=== PATIENT | female | born 1960 | race Caucasian/White ===

== ENCOUNTER → 2017-10-07 10:12 | Outpatient (CLI) | payer OTHER, SELFPAY ==
--- NOTE | 2017-10-07 10:18 | MRI_ITS ---
STUDY: MRI LEFT SHOULDER REASON FOR EXAM: Painful and decreased range of motion, jerking/pulling injury last May. TECHNIQUE: Standardized fat and water weighted pulse sequences were obtained in all 3 orthogonal planes. COMPARISON: Radiographs 05/02/2017. FINDINGS: There is mild supraspinatus and infraspinatus tendinosis (T2 coronal series 7 images 8-13) without discrete tendon tear. Normal subscapularis tendon. Normal teres minor tendon. Normal supraspinatus muscle. Normal infraspinatus muscle. Normal subscapularis muscle. Normal teres minor muscle. Normal glenohumeral articulation. There is mild cystic change of the greater tuberosity. Normal biceps labral complex. Normal intracapsular long biceps tendon. Normal labrum. Normal capsulo- ligamentous complex. Normal acromioclavicular articulation. There is a Type I morphology (flat undersurface), with a mild posterior downsloping orientation. There is no subacromial-subdeltoid bursal fluid. There is thickening of the coracohumeral ligament (T2 sagittal images 12, 13). Normal deltoid muscle. Normal trapezius muscle. MRI/Upper Ext Joint Only(Routine) IMPRESSION: Mild supraspinatus and infraspinatus tendinosis without demonstrated rotator cuff tear. Thickening of the coracoacromial ligament, suggestive of adhesive capsulitis. Electronically Signed: Gianfranco Koch MD at 11:32 EST Tel , Service support ,
== END ==
PROVIDERS: Family Provider Family Medicine; PCP Family Medicine; Visit Provider Orthopaedic Surgery
DX: M75.02 Adhesive capsulitis of left shoulder (principal)
CPT/HCPCS: 73221

== ENCOUNTER 2017-11-11 05:43 | Day surgery (SDC) | payer OTHER, SELFPAY ==
[2017-11-11] VITALS (7 sets, daily range): BP systolic 124–154; BP diastolic 68–85; PULSE 71–82; RESP 16; TEMP 35.8–36; O2SAT 14–100; BMI 20.9
[2017-11-11] MEDS: oxyCODONE HCl Cr 10 MG Tablet PO (06:20)
[2017-11-11] MEDS: Celecoxib 200 MG Capsule PO (06:20)
--- NOTE | 2017-11-11 06:56 | PCM.DC.ORTHO ---
Discharge Activity: Return to Normal Activity, May not drive while taking narcotic pain medications., May Shower, - - sling for comfort May shower in (days): 2 May resume sexual activity in: No Restrictions Ice area for (Minutes): 20 Weight Bearing Status: Weight bearing as tolerated Call your doctor if your incision/area has: Continuous Slow Oozing, Sudden Increased Bleeding, Increased Pain/ Swelling, Increased Redness, Foul Smelling Discharge, Swelling at the incision site Call your doctor if you observe: Fever of 101 or Higher, Coldness, Increased Pain, Numbness or Tingling, Change in Color, Inability to urinate, Inability to have a bowel movement, Using more than one pad per hour, Shortness of breath, Dizziness, Fainting spells, Swelling in the ankles, Chest pain, Prolonged hiccoughing, Increased palpitations (irregular heartbeat), Calf discomfort, Uncontrolled pain Suture Line Care: Avoid Pulling/Pushing, Avoid Pinching/Bending Change Dressing in (Days):: 2 Remove Dressing in (days):: 2 Cleanse incision/area with: Soap & Water Additional Dressing/Incision Instructions:: replace if there is drainage. wash hands prior to touching the wounds Allergies/Adverse Reactions: Allergies Sulfa (Sulfonamide Antibiotics) Allergy (Verified 11/05/17 09:22) Other morphine Adverse Reaction (Verified 11/11/17 06:10) Itching Medications to take at Discharge Lansoprazole [Prevacid] 15 mg PO DAILY 06/09/13 Zolmitriptan [Zomig] 1.25 mg PO PRN PRN 06/10/13 Naproxen [Naprosyn] 500 mg PO BID #20 tab 08/29/14 Fluoxetine [Prozac] 20 mg PO DAILY 11/05/17 Docusate Sodium [Colace] 100 mg PO BID PRN PRN #10 cap 11/11/17 Hydrocodone Bitart/Apap 5-325 [[place] 5/325] 1 - 2 tablet PO Q6H PRN PRN #60 tablet 11/11/17 MethylPREDNISolone DosePak [Medrol DosePak] 4 mg PO UD #1 box 11/11/17 proMETHazine tablet [Phenergan] 25 mg PO Q4H PRN PRN #10 tab 11/11/17 The following prescriptions were given: proMETHazine tablet [Phenergan] 25 mg PO Q4H PRN PRN #10 tab PRN Reason: Nausea Hydrocodone Bitart/Apap 5-325 [[place] 5/325] 1 - 2 tablet PO Q6H PRN PRN #60 tablet PRN Reason: Pain Docusate Sodium [Colace] 100 mg PO BID PRN PRN #10 cap PRN Reason: Constipation MethylPREDNISolone DosePak [Medrol DosePak] 4 mg PO UD #1 box Primary Care Physician: Grzegorz Montgomery MD [Primary Care Provider] - Please Follow Up With: Nadeem Pang DO When: call [facility] for appt for 2 weeks Proposed Discharge Date: 11/11/17
[2017-11-11] MEDS: Cefazolin 2 GM in 0.9% Normal Saline 100 ML IV (07:15)
--- NOTE | 2017-11-11 07:15 | PCM.IMDPSTOP ---
Immediate Post-Op Note Date of Procedure: 11/11/17 Primary Surgeon/Physician: Nadeem Pang DO tobacco acreage measurer: none Pre-Operative Diagnosis: Left shoulder adhesive capsulitis Post-Operative Diagnosis: Same as above Surgery/Procedure Performed:: Left shoulder manipulation under anesthesia and arthroscopic lysis of adhesions Description of Surgical Findings:: See dictation Estimated Blood Loss: 10 Specimen's removed: None Type of Anesthesia:: General/Regional ASA Class: ASA1 Normal Healthy Patient - Admit VTE Documentation VTE Present on Admission: No VTE Mechan Device Prophylaxis: SCD's, Knee High ANTHONY Hose VTE Pharm Prophylaxis ordered?: No Reason prophylaxis not ordered:: Treatment Not Indicated
--- NOTE | 2017-11-11 07:16 | OP.PCM_ITS ---
Report of Operation Date of Procedure: 11/11/17 Pre-Operative Diagnosis: Left shoulder adhesive capsulitis Post-Operative Diagnosis: Same as above Surgery/Procedure Performed:: Left shoulder manipulation under anesthesia and arthroscopic lysis of adhesions Description of Surgical Findings:: 57-year-old female with recalcitrant left shoulder pain that failed operative management to include NSAIDs activity modifications physical therapy and injections. Patient showed signs of adhesive capsulitis. She had an MRI that showed no rotator cuff pathology but a thickened capsule consistent with adhesive capsulitis at. Having failed conservative measures patient elected for operative intervention. Patient was counseled and consented for the aforementioned procedure. She was met in the holding area with a left upper extremity was marked and identified by the with surgeon. Patient was taken to the operating room in satisfactory condition with somewhat to place to identify patient operative procedure and limb. Patient received 2 g Ancef. She underwent a successful intubation. She was then placed in the beachchair position with all bony and soft tissue prominences protected. She was then wrapped and draped in usual fashion. Initial manipulation or anesthesia was undertaken. The patient was actively for elevated with release of soft tissue adhesions to about 170? of forward elevation. At that point time the shoulder was then extended to roughly 45?. We then performed simple abduction of the shoulder to roughly 75? of abduction. We performed gentle external rotation at the side where there was still some tightness at about 30? of range of motion. I elected that point in time not to further stress the shoulder and to begin the arthroscopic procedure. Her left upper extremity was then placed into the [place] O arm padilla. Posterior portal was established and we entered an intra-articular space. Upon identification of the anatomic triangle and anterior inferior working portal was established diagnostic scope should the patient have a normal biceps upon outlet with good mobilization. She had no scarring across across the superior recess. Her anterior central and posterior cuff showed no signs of any significant pathology. She had some small capsular fraying but no actual cornelia tearing. The posterior inferior capsule was normal and there was no loose bodies in the axillary pouch. Posterior inferior posterior superior labrum's were normal. She had no chondromalacia to the humeral head or glenoid. The patient was obviously tight anterior and anterior inferiorly. At that point time a standard capsulotomy and release of the rotator interval was undertaken to include the SG EHL and the coracohumeral ligament. I worked my way to the base of the coracoid using standard technique. Intra-articularly I then worked my way medially at with caution not to go too far to engage the neurovascular structures the subscapularis. We then release the [facility] L as she had some component to that and then staying underneath the capsular tissue down to roughly the 8 o'clock position I used a vapor cautery to perform our capsule release until I could identify subscapularis fibers. At that point time I used a box closing machine operator to release the inferior portion of the inferior glenohumeral ligament using standard technique down to roughly the 630 position. At that point time we had an improved drive-through sign. I then reperformed the external rotation and abduction external rotation components of the manipulation or anesthesia improving the overall range of motion. The scope was then retracted moved in the subacromial space established a lateral portal and performed a standard arthroscopic subacromial bursectomy. The CA ligament was intact he did not feel that there was an impingement lesion. The patient had moderate to severe for severe bursitis. This was released all the way to the scapular spine and the moving anterior lateral and posterior laterally across the gutter. No rotator cuff pathology could be appreciated. The scope was then retracted portal sites closed with 3-0 nylon. The patient will undergo a postoperative interscalene block. Final range of motion were noted to be 170? of forward elevation. Abduction external rotation to 90 and 85 internal rotation in the abducted position was roughly 45. External rotation at the side was roughly 75?. The patient could extend to roughly 70?. No drains or complications no implants. Patient will start active range of motion and physical therapy tomorrow. I was scrubbed and available all time during our procedure. If you require any further information please and is contacted. structural engineering technician: none Type of Anesthesia:: General/Regional Specimen's removed: None Estimated Blood Loss (mL): 10 Grafts/Implants Used: None - Complications none - Admit VTE Documentation VTE Present on Admission: No VTE Mechan Device Prophylaxis: SCD's, Knee High ANTHONY Hose VTE Pharm Prophylaxis ordered?: No Reason prophylaxis not ordered:: Treatment Not Indicated
== END 2017-11-11 09:56 | disposition home or self-care (01) ==
LOC: SDC 05:44 → AC 05:45
PROVIDERS: Family Provider Family Medicine; PCP Family Medicine; Visit Provider Orthopaedic Surgery
PROC: (CPT 29805; principal; 2017-11-11 06:55)
DX: M75.02 Adhesive capsulitis of left shoulder (principal); M25.512 Pain in left shoulder; G89.29 Other chronic pain; J44.9 Chronic obstructive pulmonary disease, unspecified; K21.9 Gastro-esophageal reflux disease without esophagitis; F32.9 Major depressive disorder, single episode, unspecified; F41.9 Anxiety disorder, unspecified; Z79.1 Long term (current) use of non-steroidal anti-inflammatories (NSAID); Z79.899 Other long term (current) drug therapy; Z87.891 Personal history of nicotine dependence; Z87.442 Personal history of urinary calculi; Z87.440 Personal history of urinary (tract) infections; Z87.01 Personal history of pneumonia (recurrent); Z85.828 Personal history of other malignant neoplasm of skin
CPT/HCPCS: 29825; J7120; J2405

== ENCOUNTER 2017-12-08 15:30 | Outpatient (RCR) | payer OTHER, SELFPAY ==
--- NOTE | 2017-11-14 10:00 | HP.PTEVAL_ITS ---
Patient's Visit Information ROXY KHANNA is a 57 year old F referred to Physical Therapy by Nadeem Pang DO with a diagnosis of L shoulder RONNIE, adhesive capsulitis. Date of Evaluation: 11/12/17 Physical Therapist: Abdoulaye Logan - Visit Plan Frequency: 2x /Week Duration: 4-6 Weeks Plan: Start with PROM, joint mobs. Progress HEP to family to increase consistency. Progress to AAROM/AROM as tolerated. - Subjective Subjective: Pt is here today for her initial evaluation with adhesive capsulities and surgerical bursectomy. Pt. has an RONNIE yesterday, DOS 11/12/17. Pt. reports having increased symptoms since ~ Nov. after dog pulled her by its lease. Pt. had an MRI showing no RTC issues. Pt. did have bursectomy. Pt. is here to progress her ROM. Pt. elisabethl has her bandages on, able to remove tomorrow. Pt's daughter was here today as well. Pt. denies N/T in either UE. Pt. reprots increased pain with all movements overhead. 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 Pt. is hopeful to gain full motions and get back to all recreational and work activities withtout isues. - Pain L shoulder Pain Intensity (Out of 10): 5 Pain Intensity Range: 3, 8 - Objective POSTURE: PT. has L arm in guarded positioning. Pt. has increased L shoulder height. No sling. PALPATION: Pt. has increased tenderness throughout L shoulder. Marked edema. Unable to check incisions due to bandaging, able to remove tomorrow. NEUROLOGICAL: Pt. has normal sensation to light and sharp touch throughout. Pt. has 2+ biceps and triceps DTR bilaterally. ROM: PROM- L shoulder- flexion 98deg, abd 89deg, ER at 45deg 35deg, IR at 45deg 40deg. Pt. has limited ROM- flexion 40deg, and 45deg, ext 40deg, ER at side 30deg, unable to complete functional IR. MMT- RUE 5/5 throughout; did not test LUE currently this date. - Goals Goal 1:: Pt. to be I with HEP. Goal Time Frame: 4-6 Weeks Goal 2:: Pt. to have increased L shoulder PROM to full, symmetical to R side allowing for increased tolerance to ADLs and functional mobility. Goal Time Frame: 4-6 Weeks Goal 3:: Pt. to have no pain with all ADLs and sleeping allwoing for increased quality of life. Goal Time Frame: 4-6 Weeks Goal 4:: Pt. to have full AROM of L shoulder without increase in symptoms. Goal Time Frame: 4-6 Weeks Goal 5:: Pt. to resume all work related activities without increase in symptoms. Goal Time Frame: 4-6 Weeks - Rehabilitation Potential Physical Therapy Diagnosis: Pt. has sign and symptoms consistent with L shoulder RONNIE and adhesive capsulitis. Pt. has hypombility noted throughout L shoulder. Pt. reports pain with stretching. Pt. would benefit from PT to increase PROM, progressing to AROM as able. Rehabilitation Potential: Excellent - Anticipated Interventions Patient/Client Instruction: Educate patient on: Condition, Plan of Care, Risk Factors, Benefits of Fitness Program For the Purpose of:: To foster healthy habits, To improve decision making, To facilitate caregiver knowledge, To improve self management, To prevent re-injury , To improve ability to perform tasks related to life management, To improve tolerance to ADL's Therapeutic Exercise to Include: Strength training, Postural training, Flexibilty training, Passive ROM, Active ROM, Scapular Strength/Stabilization For the Purpose of:: To decrease pain, To increase ROM, To improve nutrient delivery to tissue, To increase oxygenation perfusion, To improve muscle performance and motor function, To improve ability to perform ADL's, To improve gait and locomotor functions, To improve health of tissue, To decrease soft tissue restriction, To increase flexibility/ROM Manual Therapy Techniques to Include: Mobilization, Passive ROM, Soft tissue mobilization For the Purpose of:: To decrease pain, To increase ROM, To improve nutrient delivery to tissue, To increase oxygenation perfusion, To improve muscle performance and motor function IF ES: Yes Cryotherapy (ice pack, ice massage): Yes Thermo therapy (hot pack): Yes For the Purpose of:: To decrease pain, To decrease swelling/inflammation, To increase ROM, To improve nutrient delivery to tissue Thank you for the opportunity to evaluate your patient. For Medicare and Medicare HMO plans, please review the plan of care and approve it. It will need to be FAXED BACK to us at [phone] for Medicare purposes. Please let me know if there are questions or concerns regarding this plan of care. Physician Signature: Date:
--- NOTE | 2018-05-14 10:53 | HP.PTDCNRP_ITS ---
HP - Discharge Summary (1) - Patient Information ROXY KHANNA was seen in my office for initial evaluation on 11/12/17. The following Plan of Care was established for this patient: Initial Frequency: 2x /Week Initial Duration: 4-6 Weeks - Anticipated Interventions Patient/Client Instruction: Educate patient on: Condition, Plan of Care, Risk Factors, Benefits of Fitness Program For the Purpose of:: To foster healthy habits, To improve decision making, To facilitate caregiver knowledge, To improve self management, To prevent re- injury, To improve ability to perform tasks related to life management, To improve tolerance to ADL's Therapeutic Exercise to Include: Strength training, Postural training, Flexibilty training, Passive ROM, Active ROM, Scapular Strength/Stabilization For the Purpose of:: To decrease pain, To increase ROM, To improve nutrient delivery to tissue, To increase oxygenation perfusion, To improve muscle performance and motor function, To improve ability to perform ADL's, To improve gait and locomotor functions, To improve health of tissue, To decrease soft tissue restriction, To increase flexibility/ROM Manual Therapy Techniques to Include: Mobilization, Passive ROM, Soft tissue mobilization For the Purpose of:: To decrease pain, To increase ROM, To improve nutrient delivery to tissue, To increase oxygenation perfusion, To improve muscle performance and motor function IF ES: Yes Cryotherapy (ice pack, ice massage): Yes Thermo therapy (hot pack): Yes For the Purpose of:: To decrease pain, To decrease swelling/inflammation, To increase ROM, To improve nutrient delivery to tissue This patient was last seen in our office 12/08/17. Pertinent comments regarding their Physical therapy will appear below: Pt. was see for her shoulder after RONNIE secondary to adhesive capsulitis. Pt. was at our last visit doing very well and was to complete exercises on her own. Pt. was to follow up with PT if needed. Pt. has not been back in several months and will be DC from PT at this point intime. At this point I will be discontinuing this patient from physical therapy. I would be happy to see this patient again in the future if found appropriate by the physician. Thank you! Abdoulaye Logan
== END 2017-12-08 19:00 | disposition home or self-care (01) ==
LOC: PT 15:30
PROVIDERS: Family Provider Family Medicine; PCP Family Medicine; Visit Provider Orthopaedic Surgery
DX: Z98.890 Other specified postprocedural states (principal)
CPT/HCPCS: 97110; 97140; 97161

== ENCOUNTER → 2018-10-21 09:10 | Outpatient (CLI) | payer OTHER, SELFPAY ==
[2018-10-21 10:43] LABS: Vitamin D,25 Hydroxy 48.6 ng/mL (29.95-100.01)
[2018-10-21 11:00] LABS: Anion Gap 7 (5-15); BUN 11 mg/dL (7-18); BUN/Creat Ratio 12.2 RATIO (10-20); Calcium,Total 9.2 mg/dL (8.5-10.1); Chloride 109 mmol/L (98-107); Cholesterol 233 mg/dL (200); EST Glomerular Filtration Rate 68 mL/min (>60); Est Glom Filt Rate - Afr Amer 83 mL/min (>60); Glucose 82 mg/dL (74-106); High Density Lipoprotein 71 mg/dL; Potassium 4.1 mmol/L (3.5-5.1); Sodium Level 141 mmol/L (136-145); Thyroid Stim Hormone (TSH) 2.61 uIU/mL (0.358-3.74); Triglycerides 102 mg/dL; Very Low Density Lipoprotein 20 mg/dL (5-40)
== END ==
LOC: MFPLAB 09:11
PROVIDERS: Family Provider Family Medicine; PCP Family Medicine; Referring Provider Family Medicine; Visit Provider Family Medicine
DX: Z00.00 Encounter for general adult medical examination without abnormal findings (principal)
CPT/HCPCS: 36415; 80048; 80061; 82306; 84443

== ENCOUNTER → 2018-12-03 11:27 | Outpatient (CLI) | payer OTHER, SELFPAY ==
[2018-12-05 08:50] LABS: Rubeola IgG Ab > 300.0 AU/mL (Immune >29.9)
== END ==
LOC: MFPLAB 11:27
PROVIDERS: Family Provider Family Medicine; PCP Family Medicine; Referring Provider Family Medicine; Visit Provider Family Medicine
DX: Z11.59 Encounter for screening for other viral diseases (principal)
CPT/HCPCS: 36415; 86765

== ENCOUNTER → 2019-01-13 12:50 | Outpatient (CLI) | payer OTHER, SELFPAY ==
--- NOTE | 2019-01-13 12:53 | BI_ITS ---
MAMMOGRAPHY - BILATERAL SCREENING REASON FOR EXAM: Female, 58 years old. Routine annual screening examination. PERTINENT HISTORY: Non-contributory. Remote left excisional breast biopsy. TECHNIQUE: Digital bilateral breast kole (3D mammographic acquisition) in the CC and MLO projections. 2-D mediolateral oblique (MLO) and craniocaudad (CC) views of both breasts were obtained. CAD: Full Field Digital Mammography with Computer Added Detection was performed. COMPARISON: Comparison is made with prior study dated November 21, 2016 and April 11, 2014. FINDINGS: Breast Composition: The breasts are heterogeneously dense, which may obscure small masses. There are no dominant masses or suspicious calcifications. No other significant abnormalities are identified. There has been no significant change since the prior study. BI/SCREEN MAMM (CAD) W/KOLE BILAT IMPRESSION: Stable bilateral screening mammogram. Yearly follow-up mammogram recommended. (A) ASSESSMENT CATEGORY: BIRADS Category 1: Negative. A letter regarding these results will be sent to the patient by the facility within 30 days. Approximately 10% of breast cancers are not detected by mammography. A normal mammogram should not delay biopsy of a clinically suspicious abnormality. [id number] Electronically Signed: Willy Aguiar, at 14:29 EDT , Service support ,
== END ==
PROVIDERS: Family Provider Family Medicine; PCP Family Medicine; Referring Provider Family Medicine; Visit Provider Family Medicine
DX: Z12.31 Encounter for screening mammogram for malignant neoplasm of breast (principal)
CPT/HCPCS: 77063; 77067

== ENCOUNTER → 2019-01-25 08:38 | Outpatient (CLI) | payer OTHER, SELFPAY ==
[2019-01-25 10:29] LABS: Cholesterol 165 mg/dL (200); High Density Lipoprotein 81 mg/dL; Triglycerides 80 mg/dL; Very Low Density Lipoprotein 16 mg/dL (5-40)
== END ==
LOC: MFPLAB 08:38
PROVIDERS: Family Provider Family Medicine; PCP Family Medicine; Visit Provider Family Medicine
DX: E78.00 Pure hypercholesterolemia, unspecified (principal)
CPT/HCPCS: 36415; 80061

== ENCOUNTER 2019-04-28 07:34 | Day surgery (SDC) | payer OTHER, SELFPAY ==
--- NOTE | 2019-03-31 02:39 | HP_ITS ---
Intake Vital Signs 03/31/19 Height 5 ft 5 in 03/31/19 Weight: 117 lb 03/31/19 Body Mass Index (BMI) 19.4 03/31/19 Blood Pressure 116/81 H 03/31/19 Blood Pressure Location Rt brachial 03/31/19 Respiratory Rate 18 03/31/19 Pulse Rate 73 03/31/19 Pulse Source Monitor 03/31/19 Temperature 98.2 F 03/31/19 Pulse Ox 97 03/31/19 Oxygen Delivery Method room air Intake Visit Reasons: Abdominal Pain Change Release Manager Required: No Is patient in pain?: No Allergies sulfamethoxazole [From Bactrim] Allergy (Intermediate, Verified 03/31/19 14:27) nausea and vomiting trimethoprim [From Bactrim] Allergy (Intermediate, Verified 03/31/19 14:27) nausea and vomiting Sulfa (Sulfonamide Antibiotics) Allergy (Verified 04/24/18 08:28) Other morphine Adverse Reaction (Verified 04/24/18 08:28) Itching Medications Docusate Sodium [Colace] 100 mg PO BID PRN PRN #10 cap 11/11/17 [Rx Confirmed 03/31/19] dicyclomine 20 mg tablet 20 mg PO BID 03/31/19 [History Confirmed 03/31/19] fluoxetine 10 mg capsule 10 mg PO DAILY 03/31/19 [History Confirmed 03/31/19] lansoprazole 15 mg capsule,delayed release 15 mg PO DAILY 03/31/19 [History Confirmed 03/31/19] rosuvastatin 5 mg tablet 5 mg PO DAILY 03/31/19 [History Confirmed 03/31/19] PFSH Medical History (Updated 03/31/19 @ 14:24 by Isa Bee) Abdominal pain (Acute) Anxiety (Acute) Constipation (Acute) Diarrhea (Acute) Nausea (Acute) Breast lump (Acute) Depression with anxiety (Acute) Frequent headaches (Acute) Kidney stones (Acute) Pneumonia (Acute) Skin cancer (Acute) UTI (urinary tract infection) (Acute) Hx of nephrolithotomy with removal of calculi (Inactive) Surgical History (Updated 03/31/19 @ 14:25 by Isa Bee) History of fusion of cervical spine (Acute) History of arthroscopy of left shoulder (Acute) Collapsed lung (Inactive) H/O tubal ligation (Inactive) H/O: (Inactive) Family History (Updated 03/31/19 @ 14:25 by Isa Bee) Father Heart disease Social History (Updated 03/31/19 @ 14:39 by Sabra Dejesus MD) Smoking Status: Former smoker alcohol intake: never substance use type: does not use HPI HPI HPI: ROXY KHANNA, is a 58 F who presents to the office today for HPI HPI Surgical H&P: Yes HPI: ROXY KHANNA, is a 58 F who presents to the office today for colonoscopy. Patient states she is been having daily abdominal cramping pain mostly centering in the left lower quadrant after eating. Patient states it does improve with bowel movements. Patient states this began about 3 weeks ago but over the last week and a half it has been daily. Patient did just get Bentyl last week from her PCP which she is taking 20 mg p.o. twice daily and states that it is helping. Patient states she does have bowel movements daily she is currently on Metamucil and takes half a Every other day denies any blood in her stool. Patient's last colonoscopy was about [address] Gardner in [place], patient also states that she had an EGD at that time and her colonoscopy was negative. ROS General General: Yes fatigue; no weight change, appetite, colon cancer, breast cancer or weakness HEENT HEENT: No difficulty swallowing, eye injury, eye surgery, swollen glands or hoarseness Endo Endocrine: No thyroid disease, diabetes mellitus, thyroid cancer, Hair loss, heat intolerance or cold intolerance Skin Skin: No rash or changing moles Breast Breast: No left breast lump, right breast lump, nipple discharge, breast pain, abnormal mammogram, abnormal US or breast enlargement Musc Musculoskeletal: No back problems, arthritis, rheumatoid arthritis, gout or joint pain Cardio Cardiovascular: No murmur, pacemaker, heart disease, atrial fibrillation, high blood pressure, heart attack, heart stent, palpitations, shortness of breat with exertion or chest pain Psych Psychiatric: Yes anxiety; no depression or hearing voices Resp Respiratory: No shortness of breath, No sleep apnea, No cough, No COPD, No asthma, No emphysema, No wheezing Gastro Gastrointestinal: Yes abdominal pain, Yes nausea or vomiting, Yes diarrhea, Yes constipation, No blood in stool, Yes acid reflux, No hemorrhoids, No ulcers, No gallbladder problem, No black,tarry stools Juan Luis Hematologic: No blood thinners, No blood disorders, No bleeding, No anemia, No blood clots Neuro Neurologic: No system reviewed and no additional complaints, except as docu, No as per HPI, No abnormal walking, No abnormal hearing, No abnormal movements, No abnormal speech, No behavioral changes, No burning sensations, No confusion, No seizure-like activity, No unsteadiness, No dizziness, No localized weakness, No frequent falls, No headache(s), No lack of coordination, No loss of vision, No memory loss, No numbness, No other visual disturbances, No radiating pain, No restless legs, No sensory deficit, No fainting, No tingling, No tremor(s), No weakness, No other Exam Const General: cooperative, comfortable, no acute distress Chest Breast Palpation: No nipple discharge Resp Effort & Inspection: normal respiratory effort Cardio Rate: regular rate Heart Sounds: no murmurs GI Inspection: non-distended Palpation: soft, no guarding, nontender Assessment & Plan Problems 1. Abdominal cramping in left lower quadrant R10.32 Plan We will try to obtain previous EGD and colonoscopy records from 8 years ago. I have discussed the above with the patient. I have offered the patient colonoscopy for evaluation. I have explained the risks/benefits of the procedure and described the procedure. I have discussed the risks with the patient, including but not limited to: infection, bleeding, perforation of the GI tract requiring emergency surgery, inability to complete the procedure, injury to any internal organs, complications of anesthesia, etc. - the patient understands and agrees to proceed. I have answered all the patient's questions to the patient's satisfaction and the patient has no further questions. The patient has been given instructions for the colon cleansing preparation. 1 day clears, MiraLAX Dulcolax split prep. Sabra Dejesus M.D. Pager: [phone] [facility] [address] [place] [address], [facility], [address] [place] [id number] Office: [phone] Plan Detail Follow Up We will schedule colonoscopy Coding Level of Care Code Off vis,new,level 3 Diagnoses Abdominal cramping in left lower quadrant R10.32 03/31/19 6859 <Electronically signed by Sabra Gaytan am, MD> Date _ Sabra Dejesus MD I have examined the patient the following changes are noted: Patient still states she is still having the left lower quadrant pain occasionally did have nausea and vomiting with the prep however does state that the prep is clear/liquid this morning. Patient's last colonoscopy was in 2010 she had 2 hyperplastic polyps.
[2019-03-31 14:26] VITALS: BMI 19.4
[2019-04-28] VITALS (7 sets, daily range): BP systolic 92–132; BP diastolic 46–77; PULSE 70–80; RESP 16; TEMP 36.3–37.2; O2SAT 99–100; BMI 18.8
[2019-04-28] MEDS: Lactated Ringers 1,000 ML 100 ML IV (08:20)
--- NOTE | 2019-04-28 09:27 | OP.ENDO_ITS ---
04/28/2019 Grzegorz Montgomery MD [address] [id number] Re : Colonoscopy procedure for Elisabeth Hays Dear Dr. Montgomery This procedure was performed on Sunday, April 28, 2019. My impressions and recommendations are as follows: Impressions : - The entire examined colon is normal on direct and retroflexion views. - No specimens collected. Recommendations : - Discharge patient to home. - Resume previous diet. - Continue present medications. - Repeat colonoscopy in 10 years for screening purposes. My findings are described in the full procedure note, which is enclosed. If I can be of further assistance, please feel free to contact me at Doctor phone number(s): , Work: . Sincerely, MD Sabra Uribe MD 04/28/2019 9:27:35 AM This report has been signed electronically.
== END 2019-04-28 10:10 | disposition home or self-care (01) ==
LOC: EN 07:35 → AC 07:36
PROVIDERS: Family Provider Family Medicine; PCP Family Medicine; Referring Provider Family Medicine; Visit Provider Surgery
PROC: 0DJD8ZZ Inspection of Lower Intestinal Tract, Via Natural or Artificial Opening Endoscopic (ICD-10-PCS; CPT 45378; principal; 2019-04-28 08:55)
DX: R10.32 Left lower quadrant pain (principal); R19.7 Diarrhea, unspecified; K59.00 Constipation, unspecified; R11.0 Nausea; K21.9 Gastro-esophageal reflux disease without esophagitis; F32.9 Major depressive disorder, single episode, unspecified; F41.9 Anxiety disorder, unspecified; Z78.0 Asymptomatic menopausal state; Z79.899 Other long term (current) drug therapy; Z88.2 Allergy status to sulfonamides; Z88.1 Allergy status to other antibiotic agents; Z87.442 Personal history of urinary calculi; Z87.01 Personal history of pneumonia (recurrent); Z85.828 Personal history of other malignant neoplasm of skin; Z87.440 Personal history of urinary (tract) infections; Z87.891 Personal history of nicotine dependence
CPT/HCPCS: 45378; J7120; J2405

== ENCOUNTER 2019-06-16 08:46 | Day surgery (SDC) | payer OTHER, SELFPAY ==
--- NOTE | 2019-06-08 03:06 | HP_ITS ---
Intake Vital Signs 06/08/19 Height 5 ft 5 in 06/08/19 Weight: 112 lb 06/08/19 Body Mass Index (BMI) 18.6 06/08/19 Respiratory Rate 16 06/08/19 Body Mass Index (BMI) 18.8 Intake Visit Reasons: Gastroesophageal reflux disease (GERD) Bar Useful Or Busser Required: No Is patient in pain?: No Allergies sulfamethoxazole [From Bactrim] Allergy (Intermediate, Verified 06/08/19 14:51) nausea and vomiting trimethoprim [From Bactrim] Allergy (Intermediate, Verified 06/08/19 14:51) nausea and vomiting Sulfa (Sulfonamide Antibiotics) Allergy (Verified 06/08/19 14:51) Other morphine Adverse Reaction (Verified 06/08/19 14:51) Itching Medications Docusate Sodium [Colace] 100 mg PO BID PRN PRN #10 cap 11/11/17 [Rx Confirmed 06/08/19] dicyclomine 20 mg tablet 20 mg PO BID 03/31/19 [History Confirmed 06/08/19] fluoxetine 10 mg capsule 10 mg PO DAILY 03/31/19 [History Confirmed 06/08/19] lansoprazole 15 mg capsule,delayed release 15 mg PO DAILY 03/31/19 [History Confirmed 06/08/19] rosuvastatin 5 mg tablet 5 mg PO DAILY 03/31/19 [History Confirmed 06/08/19] PFSH Medical History Abdominal pain (Acute) Anxiety (Acute) Breast lump (Acute) Constipation (Acute) Depression with anxiety (Acute) Diarrhea (Acute) Frequent headaches (Acute) Kidney stones (Acute) Nausea (Acute) Pneumonia (Acute) Skin cancer (Acute) UTI (urinary tract infection) (Acute) Hx of nephrolithotomy with removal of calculi (Inactive) Surgical History History of arthroscopy of left shoulder (Acute) History of fusion of cervical spine (Acute) Collapsed lung (Inactive) H/O tubal ligation (Inactive) H/O: (Inactive) Family History Father Heart disease Social History (Updated 06/08/19 @ 15:06 by Sabra Dejesus MD) Smoking Status: Former smoker alcohol intake: never substance use type: does not use HPI HPI HPI: ROXY KHANNA, is a 59 F who presents to the office today for HPI HPI Surgical H&P: Yes HPI: ROXY KHANNA, is a 59 F who presents to the office today for ADD due to occasional dysphasia of her pills getting stuck in her mid to lower esophagus she had it happened twice last week otherwise normally only about 2-3 times a month. Patient denies any food or liquids being stuck in her esophagus. Patient does have nausea after eating about 1/2-hour which does resolve also increased belching. Patient currently has been on Prevacid since 2010 when she had last EGD which did show a small hiatal hernia irregular GE junction and some mild gastritis. No Green's was found that time. Dr. Corley's report states recommended Prevacid 30 mg p.o. daily current the patient is unsure how much she takes her record here shows 15 mg daily. Patient denies any abdominal pain. She is a former smoker quit smoking in 2012 also has decreased amount of pop that she drinks since she was told by Dr. Gardner. ROS General General: Yes fatigue; no weight change, appetite, colon cancer, breast cancer or weakness HEENT HEENT: No difficulty swallowing, eye injury, eye surgery, swollen glands or hoarseness Endo Endocrine: No thyroid disease, diabetes mellitus, thyroid cancer, Hair loss, heat intolerance or cold intolerance Skin Skin: No rash or changing moles Breast Breast: No left breast lump, right breast lump, nipple discharge, breast pain, abnormal mammogram, abnormal US or breast enlargement Musc Musculoskeletal: No back problems, arthritis, rheumatoid arthritis, gout or joint pain Cardio Cardiovascular: No murmur, pacemaker, heart disease, atrial fibrillation, high blood pressure, heart attack, heart stent, palpitations, shortness of breat with exertion or chest pain Psych Psychiatric: Yes anxiety; no depression or hearing voices Resp Respiratory: No shortness of breath, No sleep apnea, No cough, No COPD, No asthma, No emphysema, No wheezing Gastro Gastrointestinal: Yes abdominal pain, Yes nausea or vomiting, Yes diarrhea, Yes constipation, No blood in stool, Yes acid reflux, No hemorrhoids, No ulcers, No gallbladder problem, No black,tarry stools Juan Luis Hematologic: No blood thinners, No blood disorders, No bleeding, No anemia, No blood clots Neuro Neurologic: No weakness Exam Const General: cooperative, comfortable, no acute distress Chest Breast Palpation: No nipple discharge Resp Effort & Inspection: normal respiratory effort Cardio Rate: regular rate Heart Sounds: no murmurs GI Inspection: non-distended Palpation: soft, no guarding, nontender Assessment & Plan 1. GERD (gastroesophageal reflux disease) K21.9 Plan Patient will check how much of the Prevacid she is taking previously recommended to take 30 mg p.o. daily after her 2010 EGD currently her records states she is taking 15 mg daily. I have discussed the above with the patient. I have offered the patient EGD for evaluation. I have explained the risks/benefits of the procedure and described the procedure. I have discussed the risks with the patient, including but not limited to: infection, bleeding, perforation of the GI tract requiring emergency surgery, inability to complete the procedure, injury to any internal organs, complications of anesthesia, etc. - the patient understands and agrees to proceed. I have answered all the patient's questions to the patient's satisfaction and the patient has no further questions. Sabra Dejesus M.D. Pager: [phone] [facility] [address] [place] [address], [address] [place] [address] Office: [phone] Coding Level of Care Code Off vis,est,level 3 Diagnoses GERD (gastroesophageal reflux disease) K21.9 06/08/19 1506 <Electronically signed by Sabra Gaytan am, MD> Date _ Sabra Dejesus MD I have examined the patient the following changes are noted: She did change to the Prevacid 30 mg p.o. daily denies any more dysphasia since changing.
[2019-06-08 14:51] VITALS: BMI 18.6
[2019-06-16 09:16] VITALS: BP 130/66; PULSE 73; RESP 15; TEMP 36.6; O2SAT 99; BMI 19.1
[2019-06-16] MEDS: Lactated Ringers 1,000 ML 75 ML IV (09:25)
--- NOTE | 2019-06-16 10:00 | EGD_PTH ---
PATIENT: ROXY KHANNA LOC: [facility] U#:[id number] AGE/SX: 59/F ROOM: RE06/16/[address]: Dr. Sabra Dejesus MD : 1960 BED: DIS: 06/16/2019 SPEC #: [id number] RECD: 06/16/19 10:30 STATUS: ANSELMO SHAHRIAR #: [id number] MILEY: 06/16/19 10:[address]: Sabra Dejesus DEPT: SURGICAL PATHOLOGY RECD BY: Matt Helm ENTERED: 06/16/19 11:03 SP TYPE: EGD BIOPSY OT DR: Dr. Grzegorz Montgomery MD Tissues: A - Gastric mucous membrane B - Gastric mucous membrane C - Gastric mucous membrane D - Gastric mucous membrane E - Gastric mucous membrane Procedures: Special Stain Group II Surgery Specimen Level IV Alcian Blue/PAS (control) HEADER OPER[place] [place] DIAGNOSIS: GERD TISSUE SUBMITTED: A - Antral biopsy and H. pylori, B - White nodule gastric body, C - Gastric polyp, D - Gastric polyp #2, E - GE junction biopsy MICROSCOPIC DIAGNOSIS A. Antral biopsy: Fragments of gastric mucosa with minimal chronic inflammation. See comment. B. White nodule gastric body, biopsy: A fragment of gastric mucosa with mild chronic inflammation. C. Gastric polyp, biopsy: Fundic gland polyp. D. Gastric polyp #2, biopsy: Fundic gland polyp. E. GE junction, biopsy: A fragment of gastroesophageal mucosa with chronic inflammation. Intestinal metaplasia (goblet cell metaplasia) is not identified. See comment. SJ:rg 06/17/19 COMMENT A. The results of immunohistochemistry for Helicobacter pylori will be reported separately ([id number]). E. Alcian blue/PAS stain with matched control is used in the evaluation of the specimen. MICROSCOPIC DESCRIPTION Slides are reviewed. GROSS DESCRIPTION A - Received in fixative is one container labeled with the patient's name and designated antral biopsy. The specimen consists of two irregular fragments of light crowe soft tissue that in aggregate measure 0.4 x 0.3 x 0.1 cm. The specimen is totally submitted in one cassette. B - Received in fixative is one container labeled with the patient's name and designated white nodule gastric body. The specimen consists of one irregular fragment of light crowe soft tissue that measures 0.3 x 0.3 x 0.1 cm. The specimen is totally submitted in one cassette. C - Received in fixative is one container labeled with the patient's name and designated gastric polyp. The specimen consists of one irregular fragment of light crowe soft tissue that measures 0.2 x 0.2 x 0.1 cm. The specimen is totally submitted in one cassette. D - Received in fixative is one container labeled with the patient's name and designated gastric polyp #2. The specimen consists of one irregular fragment of light crowe soft tissue that measures 0.4 x 0.3 x 0.1 cm. The specimen is totally submitted in one cassette. E - Received in fixative is one container labeled with the patient's name and designated GE junction biopsy. The specimen consists of one irregular fragment of light crowe soft tissue that measures 0.2 x 0.1 x 0.1 cm. The specimen is totally submitted in one cassette. / SJ:rg 06/16/19 TC:5 CPT: 02185 x4, 11682
--- NOTE | 2019-06-16 10:00 | IMM_PTH ---
PATIENT: ROXY KHANNA LOC: EN U#:[id number] AGE/SX: 59/F ROOM: RE06/16/[address]: Dr. Sabra Dejesus MD : 1960 BED: DIS: 06/16/2019 SPEC #: [id number] RECD: 06/16/19 12:24 STATUS: ANSELMO REQ #: [id number] MILEY: 06/16/19 10:[address]: Sabra Dejesus DEPT: IMMUNOHISTOCHEMISTRY RECD BY: Prerna Garcia ENTERED: 06/16/19 12:25 SP TYPE: IMMUNO OTHR DR: Dr. Grzegorz Montgomery MD Tissues: A - Stomach, NOS Procedures: H Pylori (initial) PHYSICIAN & INSTITUTION [place] [id number] SPECIMEN INFORMATION: Tissue Source: A - Antral biopsy Clinical Info: GERD Specimen Number: [id number] CPT code: 20758 METHODOLOGY: Deparaffinized sections of prefer/formalin-fixed tissue or PAP/DQ stained slides are incubated with monoclonal/polyclonal antibodies/oligonucleotide probes. Localization is made via biotin free immunoperoxidase method. Appropriate controls are performed and reacted as expected. Results on target cell population are indicated in the following table: RESULTS: ANTIBODY / CLONE RESULT Block A H Pylori (polyclonal) negative These tests were developed and their performance characteristics determined by [facility]. They may not have been cleared or approved by the U.S. Food and Drug Administration. The FDA has determined that such clearance or approval is not necessary. INTERPRETATION: A. Antral biopsy: Negative for Helicobacter pylori organisms. SJ:donald 06/17/19
[2019-06-16 10:20] VITALS: BP 122/76; BP 130/66; PULSE 88; RESP 18; TEMP 36.7; O2SAT 99
--- NOTE | 2019-06-16 10:21 | OP.EGD_ITS ---
Patient Name: Elisabeth Hays Procedure Date: 06/16/2019 9:52 AM Date of : 1960 Age: 59 Procedure: Upper GI endoscopy Indications: Dysphagia, Gastro-esophageal reflux disease Providers: Sabra Dejesus MD Referring MD: Grzegorz Montgomery MD Medicines: Monitored Anesthesia Care Patient Profile: This is a 59 year old female. Complications: No immediate complications. Procedure: Pre-Anesthesia Assessment: - Prior to the procedure, a History and Physical was performed, and patient medications and allergies were reviewed. The patient's tolerance of previous anesthesia was also reviewed. The risks and benefits of the procedure and the sedation options and risks were discussed with the patient. All questions were answered, and informed consent was obtained. Prior Anticoagulants: The patient has taken no previous anticoagulant or antiplatelet agents. ASA Grade Assessment: II - A patient with mild systemic disease. After reviewing the risks and benefits, the patient was deemed in satisfactory condition to undergo the procedure. After obtaining informed consent, the endoscope was passed under direct vision. Throughout the procedure, the patient's blood pressure, pulse, and oxygen saturations were monitored continuously. The gastroscope was introduced through the mouth, and advanced to the second part of duodenum. The upper GI endoscopy was accomplished without difficulty. The patient tolerated the procedure well. Scope In: 10:04:49 AM Scope Out: 10:14:48 AM Total Procedure Duration Time 0 hours 9 minutes 59 seconds Findings: The Z-line was irregular and was found 40 cm from the incisors. Biopsies were taken with a cold forceps for histology. Localized mild mucosal variance characterized by discoloration was found in the gastric body. Biopsies were taken with a cold forceps for histology. Two less than 5 mm semi-sessile polyps with no bleeding and no stigmata of recent bleeding were found in the gastric body. The polyp was removed with a cold biopsy forceps. Resection and retrieval were complete. Mildly erythematous mucosa without bleeding was found in the gastric antrum. Biopsies were taken with a cold forceps for histology. Biopsies were taken with a cold forceps for Helicobacter pylori cultures. The examined duodenum was normal. Impression: - Z-line irregular, 40 cm from the incisors. Biopsied. - Gastric mucosal variant. Biopsied. - Two gastric polyps. Resected and retrieved. - Erythematous mucosa in the antrum. Biopsied. - Normal examined duodenum. Recommendation: - Discharge patient to home. - Resume previous diet. - Continue present medications. - Await pathology results. Procedure Code(s): --- Professional --- 06272, Esophagogastroduodenoscopy, flexible, transoral; with biopsy, single or multiple Diagnosis Code(s): --- Professional --- K22.8, Other specified diseases of esophagus K31.89, Other diseases of stomach and duodenum K31.7, Polyp of stomach and duodenum R13.10, Dysphagia, unspecified K21.9, Gastro-esophageal reflux disease without esophagitis CPT copyright 2017 [employer]. All rights reserved. The codes documented in this report are preliminary and upon home care rn review may be revised to meet current compliance requirements. MD Sabra Uribe MD 06/16/2019 10:20:59 AM This report has been signed electronically. Number of Addenda: 0 Note Initiated On: 06/16/2019 9:52 AM
[2019-06-16 10:25] VITALS: BP 124/80; BP 130/66; PULSE 90; RESP 17; O2SAT 98
[2019-06-16 10:30] VITALS: BP 113/73; BP 130/66; PULSE 89; RESP 16; O2SAT 98
[2019-06-16 10:35] VITALS: BP 111/77; BP 130/66; PULSE 69; RESP 16; TEMP 36.3; O2SAT 97
[2019-06-16 11:14] VITALS: BP 130/66
== END 2019-06-16 11:15 | disposition home or self-care (01) ==
LOC: EN 08:46 → AC 08:48
PROVIDERS: Family Provider Family Medicine; PCP Family Medicine; Referring Provider Family Medicine; Visit Provider Surgery
PROC: 0DJ08ZZ Inspection of Upper Intestinal Tract, Via Natural or Artificial Opening Endoscopic (ICD-10-PCS; CPT 43235; principal; 2019-06-16 09:55)
DX: K31.7 Polyp of stomach and duodenum (principal); R13.10 Dysphagia, unspecified; K21.0 Gastro-esophageal reflux disease with esophagitis; K22.8 Other specified diseases of esophagus; K31.89 Other diseases of stomach and duodenum; R19.7 Diarrhea, unspecified; R11.0 Nausea; E78.00 Pure hypercholesterolemia, unspecified; F32.9 Major depressive disorder, single episode, unspecified; F41.9 Anxiety disorder, unspecified; Z88.2 Allergy status to sulfonamides; Z88.1 Allergy status to other antibiotic agents; Z87.442 Personal history of urinary calculi; Z87.440 Personal history of urinary (tract) infections; Z87.01 Personal history of pneumonia (recurrent); Z85.828 Personal history of other malignant neoplasm of skin; Z87.891 Personal history of nicotine dependence; Z79.899 Other long term (current) drug therapy; Z78.0 Asymptomatic menopausal state
CPT/HCPCS: 43239; 88305; 88313; 88342; J7120; J2405

== ENCOUNTER → 2020-07-12 16:02 | Outpatient (CLI) | payer OTHER, SELFPAY ==
[2020-07-12 18:11] LABS: ALB/GLOB Ratio 1.1 RATIO (0.9-2.4); AST(SGOT) 34 U/L (15-37); Alanine Aminotransfer ALT/SGPT 37 U/L (13-56); Albumin, Serum 3.9 g/dL (3.2-5.0); Alkaline Phosphatase 117 U/L (45-117); Anion Gap 6 (5-15); BUN 12 mg/dL (7-18); BUN/Creat Ratio 13.6 RATIO (10-20); Chloride 106 mmol/L (98-107); Cholesterol 140 mg/dL (200); Creatinine, Serum 0.88 mg/dL (0.55-1.02); EST Glomerular Filtration Rate 69 mL/min (>60); Est Glom Filt Rate - Afr Amer 83 mL/min (>60); Globulin 3.4 g/dL (2.2-4.2); Glucose 81 mg/dL (74-106); High Density Lipoprotein 85 mg/dL; Potassium 3.5 mmol/L (3.5-5.1); Protein, Total 7.3 g/dL (6.4-8.2); Sodium Level 140 mmol/L (136-145); Triglycerides 77 mg/dL; Very Low Density Lipoprotein 15 mg/dL (5-40)
== END ==
LOC: MTLAB 16:04
PROVIDERS: PCP Family Medicine; Referring Provider Family Medicine; Visit Provider Family Medicine
DX: E78.00 Pure hypercholesterolemia, unspecified (principal)
CPT/HCPCS: 36415; 80053; 80061

== ENCOUNTER → 2020-09-27 | Outpatient (CLI) | payer OTHER, SELFPAY ==
[2020-10-03 15:29] LABS: HPV Reflexed? NOT INDICATED
== END | disposition home or self-care (01) ==
PROVIDERS: PCP Family Medicine; Referring Provider Family Medicine; Visit Provider Family Medicine
DX: Z12.4 Encounter for screening for malignant neoplasm of cervix (principal); N89.8 Other specified noninflammatory disorders of vagina
CPT/HCPCS: 87070; 87205; 88175; G0145

== ENCOUNTER → 2021-03-16 08:53 | Outpatient (CLI) | payer OTHER, SELFPAY ==
--- NOTE | 2021-03-16 09:02 | RAD_ITS ---
STUDY: X-RAY CHEST REASON FOR EXAM: Female, 60 years old. Chest discomfort. History of right lung collapse in 2012. TECHNIQUE: PA and lateral views of the chest. COMPARISON: 08/29/2014 FINDINGS: There is slightly decreased expansion of the right hemithorax when compared to the left. There is density in the right lung apex and upper lobe extending downward to the hilum which was not previously seen. Lungs are otherwise clear. There is no demonstrated pleural abnormality. Normal size heart. Normal mediastinum and louis. Normal visualized pulmonary arteries. Normal visualized aortic arch and descending thoracic aorta. Normal visualized thoracic spine. Stable fusion of the cervical spine. There is degenerative osteoarthritis of the bilateral shoulders. There is no demonstrated abnormality of the visualized soft tissue structures of the upper abdomen. RAD/Chest PA and Lateral IMPRESSION: Decreased right lung volume with scarring versus infiltrate versus mass in the right lung apex. Follow-up with CT is recommended. Electronically Signed: Bryan Cook DO at 17:13 EDT Tel [phone], Service support ,
[2021-03-16 10:08] LABS: Absolute Lymphocyte Count 0.96 X10^3/uL (0.83-4.51); Absolute Neutrophil Count 8.5 X10^3/uL (2.0-7.7); Basophil# 0.03 X10^3/uL; Basophil% 0.3 % (0-1); Eosinophil# 0.25 X10^3/uL; Eosinophils% 2.4 % (0-5); Hematocrit 35.5 % (37-47); Hemoglobin 11.4 g/dL (12.0-15.0); Lymphocyte # 0.96 X10^3/ul (0.83-4.51); Lymphocyte % 9.1 % (19-41); Mean Corp Hgb Conc 32.1 g/dL (32-36); Mean Corpuscular Hgb 27.9 pg (27.0-32.0); Mean Corpuscular Volume 86.8 fL (81-99); Mean Platelet Vol. 8.6 fl (6.2-12.0); Monocyte# 0.76 X10^3/uL; Monocyte% 7.2 % (0-10); NRBC Flagged by Analyzer 0 % (0-5); Neutrophil # 8.46 X10^3/uL (2.7-7.7); Neutrophil % 80.6 % (47-70); Platelet Count 442 K/mm3 (150-450); RBC Distribution Width CV 11.9 % (11.6-14.6); Red Blood Count 4.09 M/mm3 (4.2-5.4); White Blood Count 10.5 K/mm3 (4.4-11.0)
[2021-03-16 10:21] LABS: Anion Gap 7 (5-15); BUN 7 mg/dL (7-18); BUN/Creat Ratio 9.8 RATIO (10-20); Calcium,Total 9.5 mg/dL (8.5-10.1); Chloride 103 mmol/L (98-107); Creatinine, Serum 0.72 mg/dL (0.55-1.02); EST Glomerular Filtration Rate 88 mL/min (>60); Est Glom Filt Rate - Afr Amer 107 mL/min (>60); Glucose 120 mg/dL (74-106); Sodium Level 137 mmol/L (136-145)
== END ==
PROVIDERS: PCP Family Medicine; Referring Provider Family Medicine; Visit Provider Family Medicine
DX: Z20.822 Contact with and (suspected) exposure to COVID-19 (principal); R68.89 Other general symptoms and signs
CPT/HCPCS: 36415; 71046; 80048; 85025; 87635; U0005; U0003

== ENCOUNTER 2021-03-20 09:48 | Emergency (ER) | payer OTHER, SELFPAY ==
[2021-03-20 09:49] VITALS: BP 122/84; PULSE 95; RESP 22; TEMP 36.6; O2SAT 95; BMI 21.2
--- NOTE | 2021-03-20 09:56 | EKG12_ITS ---
Test Reason : Blood Pressure : / mmHG Vent. Rate : 088 BPM Atrial Rate : 088 BPM P-R Int : 142 ms QRS Dur : 076 ms QT Int : 380 ms P-R-T Axes : 071 069 067 degrees QTc Int : 459 ms Normal sinus rhythm Normal ECG Confirmed by TANISHA SENA, BILL ([id number]), supervising editor news reel PILAR PEREZ ([id number]) on 03/21/2021 10:12:54 AM Referred By: JOYCE Confirmed By:BILL GARAY MD
--- NOTE | 2021-03-20 09:56 | EX.ED.DYSGE1 ---
HPI History of Present Illness Chief Complaint: Dizziness Informant: patient Narrative Narrative: 60-year-old female arriving by EMS with chief complaint of dizziness and diaphoresis. Patient states she was recently put on antibiotic for sinus infection. She is has subsequently stopped the Augmentin a couple days ago but has developed diarrhea. Today she was at work and went to the bathroom and had diarrhea while having diarrhea she became diaphoretic and dizzy. She states now she feels back to the way she did when she went to work. She states that she has been feeling poorly for 3 weeks. She notes achiness in her bilateral hips and legs. She states that she is awaiting insurance approval to obtain a CAT scan of her chest because there is scar tissue versus mass versus other on the right chest. She states she had a prior pneumothorax on that side. [facility] Medical History (Updated 03/20/21 @ 10:[address] Tre Garcia DO) Abdominal pain Anxiety Breast lump Constipation Depression with anxiety Diarrhea Frequent headaches Hx of nephrolithotomy with removal of calculi Kidney stones Nausea Pneumonia Skin cancer UTI (urinary tract infection) Home Medications docusate sodium 100 mg PO BID PRN PRN #10 cap 11/11/17 [Rx Last Taken Unknown] fluoxetine 10 mg capsule 10 mg PO DAILY 03/31/19 [History Last Taken Unknown] lansoprazole 15 mg capsule,delayed release 30 mg PO DAILY 03/31/19 [History Last Taken Unknown] rosuvastatin 5 mg tablet 5 mg PO DAILY 03/31/19 [History Last Taken Unknown] lansoprazole 30 mg PO DAILY #30 capsule. 06/16/19 [Rx Last Taken Unknown] Allergy/AdvReac Type Severity Reaction Status Date / Time sulfamethoxazole Allergy Intermediate nausea and Verified 06/16/19 09:05 [From Bactrim] vomiting trimethoprim [From Bactrim] Allergy Intermediate nausea and Verified 06/16/19 09:05 vomiting Sulfa (Sulfonamide Allergy Other Verified 06/16/19 09:05 Antibiotics) morphine AdvReac Itching Verified 06/16/19 09:05 Family History Father Heart disease Surgical History Collapsed lung H/O tubal ligation H/O: History of arthroscopy of left shoulder History of fusion of cervical spine Social History Smoking Status: Former smoker alcohol intake: never substance use type: does not use ROS ROS ED ROS Narrative Dizziness and diaphoresis Constitutional Constitutional ED: Denies chills or weight loss Eyes Eyes: Denies change in vision or diplopia ENT ENT ED: Denies ear pain, rhinorrhea or sore throat Cardiovascular Cardiovascular: Denies chest pain, orthopnea, palpitations or racing heartbeat Respiratory/Chest Respiratory/Chest: Denies cough, dyspnea or orthopnea Gastrointestinal Gastrointestinal: Reports diarrhea; Denies abdominal pain, nausea or vomiting Genitourinary Genitourinary ED: Denies dysuria, hematuria or urinary frequency Musculoskeletal Musculoskeletal: Denies arthralgias or myalgias Integumentary Denies abscess or rash Neurologic Neurologic: Denies headache(s) or weakness Psychiatric Psychiatric: Denies anxiety, depression, suicidal ideation or suicidal thoughts Endocrine Endocrinology: Denies polydipsia, polyphagia or polyuria Allergic/Immunologic Allergic/Immunologic ED: Denies mouth swelling, tongue swelling or urticaria EXAM Physical Exam Const Vital Signs: 03/20/21 09:49 03/20/21 09:51 Temperature 97.8 F Temperature Source Oral Pulse Rate 95 Respiratory Rate 22 H Respiratory Effort Normal Non-Labored Respiratory Pattern Normal Blood Pressure 122/84 H Blood Pressure Mean 96 Pulse Ox 95 Oxygen Delivery Method Room Air Positive well nourished and well developed General Appearance ED: well developed HEENT Reports normocephalic, head/scalp atraumatic and moist mucous membranes Eyes PERRL and EOMs intact bilaterally Neck no lymphadenopathy, supple and no JVD Resp normal respiratory effort and clear to auscultation bilaterally Cardio regular rate, regular rhythm and no murmurs GI normal to inspection, nondistended, normoactive bowel sounds and non-tender Palpation: soft Back/Spine no CVA tenderness and normal ROM Extremity normal to inspection General Extremety ED: Negative for edema General Extremity: Negative for edema Neuro oriented x3 and CN's II-XII intact bilaterally Sensorium / Orientation: alert Motor Exam: strength 5/5 throughout Psych mental status grossly normal Mood & Affect: Negative for depressed or tearful Skin no rashes or lesions noted and no wounds MDM MDM MDM Narrative Medical decision making narrative: Basic blood work was obtained. White count 12.3 hemoglobin 11.4. Potassium 3.3 troponin negative. Patient's had no events on the monitor. By her description this appears to be a vagal event today. Lab Data Attestation: I reviewed the patient's lab results. Labs: Laboratory Results - last 24 hr 03/20/21 03/20/21 09:33 09:33 WBC 12.3 H RBC 4.05 L Hgb 11.4 L Hct 35.0 L MCV 86.4 MCH 28.1 MCHC 32.6 RDW Std Deviation 37.8 RDW Coeff of Steve 11.9 Plt Count 508 H MPV 8.4 Immature Gran % (Auto) 0.600 Neut % (Auto) 76.3 H Lymph % (Auto) 14.0 L [place] % (Auto) 6.6 Eos % (Auto) 2.0 Baso % (Auto) 0.5 Absolute Neuts (auto) 9.4 H Absolute Lymphs (auto) 1.71 Nucleated RBC % 0 Sodium 137 Potassium 3.3 L Chloride 102 Carbon Dioxide 28.0 Anion Gap 7 BUN 9 Creatinine 0.86 Estim Creat Clear Calc 61.81 Est GFR (MDRD) Af Amer 86 Est GFR (MDRD) Non-Af 71 BUN/Creatinine Ratio 10.5 Glucose 109 H Calcium 9.7 Troponin I High Sens < 3.0 L EKG Initial EKG: Attestation: I personally reviewed and interpreted this EKG as follows: Comments: Normal sinus rhythm with a ventricular rate of 88 bpm. No concerning features of ACS Discharge Plan Triage Chief Complaint: Dizziness ED Provider: Tre Garcia Dx/Rx/DC Orders Clinical Impression: Vasovagal near syncope, Diarrhea Instructions: ED Near-Fainting- Vagal Reaction Prescriptions: No Action lansoprazole [Prevacid] 15 mg capsule,delayed release(DR/EC) 30 mg PO DAILY RF: 0 rosuvastatin [Crestor] 5 mg tablet 5 mg PO DAILY RF: 0 fluoxetine [Prozac] 10 mg capsule 10 mg PO DAILY RF: 0 docusate sodium 100 MG capsule 100 mg PO BID PRN PRN (Reason: Constipation) Qty: 10 RF: 0 lansoprazole 30 MG capsule,delayed release(DR/EC) 30 mg PO DAILY Qty: 30 RF: 3 Primary Care Provider: Grzegorz Montgomery Referrals: Grzegorz Montgomery MD [Primary Care Provider] - 1 Week Disposition Disposition: Home, Self Care
[2021-03-20 10:07] LABS: Absolute Lymphocyte Count 1.71 X10^3/uL (0.83-4.51); Absolute Neutrophil Count 9.4 X10^3/uL (2.0-7.7); Basophil# 0.06 X10^3/uL; Basophil% 0.5 % (0-1); Eosinophil# 0.24 X10^3/uL; Hemoglobin 11.4 g/dL (12.0-15.0); Lymphocyte # 1.71 X10^3/ul (0.83-4.51); Mean Corp Hgb Conc 32.6 g/dL (32-36); Mean Corpuscular Hgb 28.1 pg (27.0-32.0); Mean Corpuscular Volume 86.4 fL (81-99); Mean Platelet Vol. 8.4 fl (6.2-12.0); Monocyte# 0.81 X10^3/uL; Monocyte% 6.6 % (0-10); NRBC Flagged by Analyzer 0 % (0-5); Neutrophil # 9.36 X10^3/uL (2.7-7.7); Neutrophil % 76.3 % (47-70); Platelet Count 508 K/mm3 (150-450); RBC Distribution Width CV 11.9 % (11.6-14.6); RBC Distribution Width SD 37.8 fl (35.1-43.9); Red Blood Count 4.05 M/mm3 (4.2-5.4); White Blood Count 12.3 K/mm3 (4.4-11.0)
[2021-03-20 10:20] LABS: Anion Gap 7 (5-15); BUN 9 mg/dL (7-18); BUN/Creat Ratio 10.5 RATIO (10-20); Calcium,Total 9.7 mg/dL (8.5-10.1); Chloride 102 mmol/L (98-107); Creatinine, Serum 0.86 mg/dL (0.55-1.02); EST Glomerular Filtration Rate 71 mL/min (>60); Est Glom Filt Rate - Afr Amer 86 mL/min (>60); Estimated Creatinine Clearance 61.81 ml/min; Glucose 109 mg/dL (74-106); Potassium 3.3 mmol/L (3.5-5.1); Sodium Level 137 mmol/L (136-145); Troponin-I HS < 3.0 pg/mL (3.0-53.7)
[2021-03-20 11:27] VITALS: BP 116/67; PULSE 81; RESP 16; O2SAT 97
== END 2021-03-20 11:28 | disposition home or self-care (01) ==
PROVIDERS: Emergency Provider Emergency Medicine; PCP Family Medicine
DX: R55 Syncope and collapse (principal); R19.7 Diarrhea, unspecified; F41.8 Other specified anxiety disorders; Z87.01 Personal history of pneumonia (recurrent); Z87.442 Personal history of urinary calculi; Z87.440 Personal history of urinary (tract) infections; Z85.828 Personal history of other malignant neoplasm of skin; Z79.899 Other long term (current) drug therapy; Z87.891 Personal history of nicotine dependence
CPT/HCPCS: 80048; 84484; 85025; 93005; 99285

== ENCOUNTER → 2021-03-27 06:47 | Outpatient (CLI) | payer OTHER, SELFPAY ==
--- NOTE | 2021-03-27 06:48 | CT_ITS ---
STUDY: CT CHEST WITH CONTRAST REASON FOR EXAM: Female, 60 years old. Volume loss in the right upper lobe and possible infiltrate. RADIATION DOSAGE (If Supplied By Facility): CTDIvol = ( 9.24 ) mGy, DLP = ( 202.04 ) mGycm TECHNIQUE: Transaxial imaging was performed following intravenous administration of IV 100mL Isovue-300. Multiplanar coronal and sagittal images were reformatted. Individualized dose optimization techniques were used for this CT. COMPARISON: Comparison is made with prior CT scan of thorax dated 06/10/2013 and prior chest radiograph dated 03/16/2021. FINDINGS: The previously seen pneumothorax has resolved. The previously seen dense infiltration in the right middle lobe and right lower lobes have cleared. Hyperinflation. Emphysematous changes. There is a 6 cm x 2.5 cm x 2.9 cm irregular soft tissue density in the right lung apex extending into the pleural surface of the right upper lobe laterally. There is evidence of a multiple cystic densities suggestive of bronchiectasis. This most likely represents chronic changes. Emphysematous changes are seen in the proximal aspect of the right upper lobe. There is no demonstrated pleural abnormality. Normal heart and pericardium. There are multiple small lymph nodes within the mediastinum, which are normal in size and morphology most compatible with reactive lymph hyperplasia. Normal hilar regions. Normal enhanced pulmonary arteries. Normal aorta arch and descending thoracic aorta. There are degenerative changes of the thoracic spine. There is no demonstrated abnormality of the visualized upper abdomen. CT/Chest WITH Contrast IMPRESSION: Findings suggestive of a scarring with bronchiectasis in the right lung apex is relatively pleural aspect of the right upper lobe. Hyperinflation and emphysematous changes with centrilobular emphysema. Electronically Signed: Willy Aguiar MD at 10:36 EDT , Service support ,
== END ==
PROVIDERS: PCP Family Medicine; Referring Provider Family Medicine; Visit Provider Family Medicine
DX: R93.89 Abnormal findings on diagnostic imaging of other specified body structures (principal)
CPT/HCPCS: 71260; Q9967

== ENCOUNTER → 2021-03-30 13:36 | Outpatient (CLI) | payer OTHER, SELFPAY | PROVIDERS: PCP Family Medicine; Referring Provider Family Medicine; Visit Provider Family Medicine | DX: U07.1 COVID-19 (principal) | CPT/HCPCS: 36415; 86769 ==

== ENCOUNTER → 2021-06-11 08:08 | Outpatient (CLI) | payer OTHER, SELFPAY ==
--- NOTE | 2021-06-11 15:53 | PFTCOMP_ITS ---
COMPLETE PULMONARY FUNCTION TEST INTERPRETATION Brief HPI: Patient is a 61 year old female, currently under the care of Dr. Coello, who presents to [facility] for complete pulmonary function tests secondary to diagnosis of emphysema. Respiratory therapist reports good effort and reproducible results. Interpretation: Forced expiration spirometry shows no large airways obstructive ventilatory defect with an FEV1 of 98% predicted. There is no significant bronchodilator response by strict ATS criteria. Spirograms are of poor quality and do not plateau given only 5 seconds of exhalation. The respiratory flow volume loop shows decreased expiratory flow rates at all lung volumes consistent with airway obstruction. Lung volumes by body plethysmography show an elevated total lung capacity at 6.88 L, 136% predicted. FRC and RV are elevated out of proportion. Lung volume measurements are consistent with hyperinflation and air-trapping. Diffusion capacity by carbon monoxide is decreased at 50% predicted. The airway resistance is normal. No previous pulmonary function tests were available for review. Impression: Isolated air trapping with hyperinflation with a symmetric reduction in diffusion capacity, in a pattern consistent with emphysema.
== END ==
PROVIDERS: PCP Family Medicine; Referring Provider Internal Medicine Critical Care Medicine; Visit Provider Internal Medicine Critical Care Medicine
DX: J43.9 Emphysema, unspecified (principal)
CPT/HCPCS: 94060; 94726; 94729

== ENCOUNTER → 2021-06-13 12:10 | Outpatient (CLI) | payer OTHER, SELFPAY ==
[2021-06-13 12:44] VITALS: PULSE 100; PULSE 75; PULSE 79; PULSE 95; PULSE 98; PULSE 99; O2SAT 95; O2SAT 96; O2SAT 97; O2SAT 98
--- NOTE | 2021-06-13 15:39 | PCM.PSN.6M ---
PSN 6 Minute Walk Test 6 Minute Walk Test 6 Minute Walk Test: 6 Minute Walk Test PSN:6-Minute Walk Test Start: 06/13/21 12:44 Freq: Status: Active Protocol: RESP.6MINW Document 06/13/21 12:44 ION (Rec: 06/13/21 12:47 ION [id number]) 6 Minute Walk Test Date Performed 06/13/21 Time Performed 12:30 Height 5 ft 5 in Weight: 53.977 kg Weight in Pounds 119.[address]: Tristin Coello Assistive device used: None Pre-test Oxygen Delivery Method Room Air Pulse Ox (%) 98 Pulse Rate (60-100 beats/min) 75 Dyspnea Patricio Scale (0-10) 0 Exertion Patricio Scale (6-20) 6 1st minute Oxygen Delivery Method Room Air Pulse Ox (%) 98 Pulse Rate (60-100 beats/min) 95 2nd minute Oxygen Delivery Method Room Air Pulse Ox (%) 97 Pulse Rate (60-100 beats/min) 99 3rd minute Oxygen Delivery Method Room Air Pulse Ox (%) 95 Pulse Rate (60-100 beats/min) 98 4th minute Oxygen Delivery Method Room Air Pulse Ox (%) 96 Pulse Rate (60-100 beats/min) 100 5th minute Oxygen Delivery Method Room Air Pulse Ox (%) 97 Pulse Rate (60-100 beats/min) 100 6th minute Oxygen Delivery Method Room Air Pulse Ox (%) 97 Pulse Rate (60-100 beats/min) 100 Dyspnea Patricio Scale (0-10) 0 Exertion Patricio Scale (6-20) 11 Post-test Oxygen Delivery Method Room Air Pulse Ox (%) 98 Pulse Rate (60-100 beats/min) 79 Full Laps Walked 20 Partial Lap, Number of Tiles Walked 12 Total Distance Walked (ft) 1192 Interpretation Interpretation: The patient was able to ambulate 1192 feet over the course of 6 minutes on room air with no assistive devices or breaks. The patient experienced no significant desaturation or tachycardia. These findings are consistent with a normal walking oximetry. Recommendations Recommendations: No supplemental oxygen is indicated at this time.
== END ==
PROVIDERS: PCP Family Medicine; Visit Provider Internal Medicine Critical Care Medicine
DX: J43.9 Emphysema, unspecified (principal)
CPT/HCPCS: 94618

== ENCOUNTER 2021-08-10 09:37 | Outpatient (CLI) | payer OTHER, SELFPAY ==
[2021-08-10 11:54] LABS: BNP,B-Type NATRIURETIC PEPTIDE 30.5 pg/mL (0-100)
== END 2021-08-10 23:59 | disposition short-term general hospital (02) ==
LOC: LAB 09:40
PROVIDERS: PCP Family Medicine; Referring Provider Internal Medicine Cardiovascular Disease; Visit Provider Internal Medicine Cardiovascular Disease
DX: R06.00 Dyspnea, unspecified (principal)
CPT/HCPCS: 36415; 83880

== ENCOUNTER 2021-08-23 07:08 | Outpatient (CLI) | payer OTHER, SELFPAY ==
--- NOTE | 2021-08-23 07:13 | ECHOD_ITS ---
Reason For Study: SOB Procedure This was a 2D Doppler, Color Flow transthoracic echocardiogram. Exam performed in department. Left Ventricle Normal LV size. Left ventricular systolic function is normal. The estimated ejection fraction is 55 %. Stage 1 diastolic dysfunction. No regional wall motion abnormalities noted. Right Ventricle Normal RV size. Normal systolic function. Atria Normal left atrium. Normal right atrium. Mitral Valve Mild mitral valve prolapse. Tricuspid Valve Normal tricuspid valve. Aortic Valve Normal aortic valve. Trisinus/trileaflet aortic valve. Pulmonic Valve Normal pulmonic valve. Great Vessels Normal aortic root. The pulmonary artery is normal size. Normal inferior vena cava. Pericardium/Pleural No pericardial effusion. MMode/2D Measurements & Calculations LVIDd: 3.5 cm IVSd: 0.92 cm Ao root diam: 3.2 cm LVIDs: 2.4 cm LVPWd: 0.81 cm RVDd: 2.4 cm FS: 31.7 % LAV(MOD-bp): 29.2 ml LVAd ap4: 22.3 cm2 LVAd ap2: 19.3 cm2 LAV(MOD-bp) Indexed: 18.5 ml/m2 LVLd ap4: 7.9 cm LVLd ap2: 7.3 cm LAV(MOD-sp2): 24.4 ml EDV(MOD-sp4): 53.9 ml EDV(MOD-sp2): 41.4 ml LAV(MOD-sp4): 28.9 ml EDV(sp4-el): 53.8 ml EDV(sp2-el): 43.6 ml LVAs ap4: 12.2 cm2 LVAs ap2: 11.1 cm2 LVLs ap4: 6.6 cm LVLs ap2: 6.4 cm ESV(MOD-sp4): 20.7 ml ESV(MOD-sp2): 16.9 ml ESV(sp4-el): 19.4 ml ESV(sp2-el): 16.2 ml EF(MOD-sp4): 61.5 % EF(MOD-sp2): 59.2 % EF(sp4-el): 63.9 % SV(MOD-sp4): 33.2 ml SV(MOD-sp2): 24.5 ml SV(sp4-el): 34.3 ml LA dimension(2D): 3.0 cm LA A4 area: 11.6 cm2 RA A4 area: 6.7 cm2 Doppler Measurements & Calculations MV E max freedom: 71.0 cm/sec Lat Peak E' Freedom: 9.0 cm/sec Med Peak E' Freedom: 8.8 cm/sec MV A max freedom: 80.5 cm/sec E/E' lat: 7.9 E/E' med: 8.1 MV E/A: 0.88 Ao V2 max: 110.5 cm/sec LV V1 max: 101.5 cm/sec PA V2 max: 108.6 cm/sec Ao max P.9 mmHg LV V1 max P.1 mmHg ECHO/Echo Complete Interpretation Summary Normal LV size. Left ventricular systolic function is normal. The estimated ejection fraction is 55 %. Stage 1 diastolic dysfunction. Mild mitral valve prolapse. Ordering Physician: Gwyn Fountain Referring Physician: Grzegorz Montgomery Performed By: Brigida Abdi RDCS
--- NOTE | 2021-08-23 13:17 | STRESSREP ---
Stress Test Report Exercise myocardial perfusion stress test. 61-year-old lady with a history of chest pain. Stress protocol: Resting EKG demonstrates normal sinus rhythm with a rate of 78 bpm normal intervals are noted resting blood pressure is 132/94 mmHg. The patient exercised according to regular Ortega protocol for total duration of 6 minutes. Patient completed stage II of the Ortega protocol the maximum heart rate attained 142 bpm which was 89% of max infected heart rate the maximum workload was 7 metabolic equivalents. At rest there were no ST or T wave changes noted to suggest ischemia and at peak exercise upsloping ST changes were noted with did not meet the criteria for ischemia. No clinical angina was noted. The test was terminated due to shortness of breath. The peak blood pressure was 188/82 mmHg. Rate-pressure product was 26,700. Myocardial perfusion protocol. 11.1 mCi of technetium 99m sestamibi was injected at rest. The patient exercised according to regular Ortega protocol for 6 minutes and at peak exercise 33.6 mCi of technetium 99m sestamibi was injected stress images were obtained stress and rest images were reconstructed and compared in the short axis vertical long and horizontal long axis. Gated images were also obtained to Perfusion SPECT analysis: Review of the stress images demonstrate normal uptake of tracer noted in all areas of the myocardium. The resting images similarly demonstrate normal uptake of tracer noted in all areas of the myocardium. No areas of reversibility are noted to suggest ischemia and no previous infarct is noted. Gated SPECT analysis: The gated ejection fraction is 79%. Conclusion: Normal exercise myocardial perfusion stress test at a moderate workload. Preserved ejection fraction.
== END 2021-08-23 23:59 | disposition short-term general hospital (02) ==
LOC: CVS 07:12
PROVIDERS: PCP Family Medicine; Referring Provider Internal Medicine Cardiovascular Disease; Visit Provider Internal Medicine Cardiovascular Disease
DX: R06.02 Shortness of breath (principal)
CPT/HCPCS: 78452; 93017; 93306; A9500; A4216

== ENCOUNTER 2021-09-18 07:18 | Outpatient (CLI) | payer OTHER, SELFPAY ==
--- NOTE | 2021-09-18 07:21 | CT_ITS ---
STUDY: CT CHEST WITHOUT CONTRAST REASON FOR EXAM: Female, 61 years old. Lung nodule follow-up RADIATION DOSAGE (If Supplied By Facility): CTDIvol = ( 6.09 ) mGy, DLP = ( 222.14 ) mGycm TECHNIQUE: Transaxial imaging was performed without the administration of intravenous contrast material. Multiplanar coronal and sagittal images were reformatted. Individualized dose optimization techniques were used for this CT. COMPARISON: March 27, 2021 CT chest FINDINGS: There is a persistent focus of soft tissue density, within the right apex which is now developed a small cavitary focus that measures 2.9 x 1.3 cm. On prior study this focus was consolidated or most masslike in appearance measuring 5.5 x 2.5 cm. This is in a pattern of advanced emphysematous change throughout the lungs increased AP diameter of the chest and fibrotic change within the right lower lobe. The heart is small in appearance. There are trace coronary calcifications. There are a few nonspecific mediastinal lymph nodes measuring less than 1 cm. There few nonspecific subcentimeter precarinal lymph nodes. Normal unenhanced pulmonary arteries. Normal aorta arch and descending thoracic aorta. There are multi-level degenerative changes of the thoracic spine. There is no demonstrated abnormality of the visualized upper abdomen. CT/Chest without Contrast IMPRESSION: Pulmonary emphysema chronic obstructive pulmonary disease area of focal density in the left apex which is described on prior study now developing into a small focus of cavitation with greater contraction. This may represent an evolving infection with adjacent emphysematous bullae versus a cavitation of a possible underlying mass. Recommend short-term interval follow-up study such as a PET scan consideration when appropriate. Pulmonary emphysema chronic obstructive pulmonary disease. Coronary calcifications. Electronically Signed: Carolina Monsalve MD at 7:51 EST ,
== END 2021-09-18 23:59 | disposition home or self-care (01) ==
LOC: CT 07:19
PROVIDERS: PCP Family Medicine; Referring Provider Nurse Practitioner Acute Care; Visit Provider Nurse Practitioner Acute Care
DX: R91.1 Solitary pulmonary nodule (principal)
CPT/HCPCS: 71250

== ENCOUNTER → 2023-03-31 | Outpatient (CLI) | payer OTHER, SELFPAY ==
[2023-03-31 10:31] LABS: Anion Gap 5 (5-15); BUN 11 mg/dL (7-18); BUN/Creat Ratio 12.4 RATIO (10-20); Calcium,Total 9.2 mg/dL (8.5-10.1); Chloride 109 mmol/L (98-107); Cholesterol 176 mg/dL (200); Creatinine, Serum 0.89 mg/dL (0.55-1.02); EST Glomerular Filtration Rate 68 mL/min (>60); Est Glom Filt Rate - Afr Amer 82 mL/min (>60); Glucose 90 mg/dL (74-106); High Density Lipoprotein 87 mg/dL; Sodium Level 142 mmol/L (136-145); Thyroid Stim Hormone (TSH) 3.37 uIU/mL (0.358-3.74); Triglycerides 77 mg/dL; Very Low Density Lipoprotein 15 mg/dL (5-40)
== END | disposition home or self-care (01) ==
LOC: MFPLAB 08:04
PROVIDERS: PCP Family Medicine; Visit Provider Family Medicine
DX: Z00.00 Encounter for general adult medical examination without abnormal findings (principal)
CPT/HCPCS: 36415; 80048; 80061; 82306; 84443

== ENCOUNTER → 2023-04-14 | Outpatient (CLI) | payer OTHER, SELFPAY ==
--- NOTE | 2023-04-14 14:36 | BI_ITS ---
MAMMOGRAPHY - BILATERAL SCREENING REASON FOR EXAM: Female, 62 years old. Routine annual screening examination. PERTINENT HISTORY: Non-contributory. TECHNIQUE: Digital bilateral breast kole (3D mammographic acquisition) in the CC and MLO projections. 2-D mediolateral oblique (MLO) and craniocaudad (CC) views of both breasts were obtained. CAD: Full Field Digital Mammography with Computer Added Detection was performed. COMPARISON: Comparison is made with prior study of January 13, 2019 and November 21, 2016. FINDINGS: Breast Composition: The breasts are heterogeneously dense, which may obscure small masses. There are no dominant masses or suspicious calcifications. No other significant abnormalities are identified. There has been no significant change since the prior study. BI/SCRN MAMM (CAD)W/KOEL BILAT IMPRESSION: Stable bilateral screening mammogram. Yearly follow-up mammogram recommended. (A) ASSESSMENT CATEGORY: BIRADS Category 1: Negative. A letter regarding these results will be sent to the patient by the facility within 30 days. Approximately 10% of breast cancers are not detected by mammography. A normal mammogram should not delay biopsy of a clinically suspicious abnormality. [id number] Electronically Signed: Willy Aguiar MD at 15:30 EDT ,
== END | disposition home or self-care (01) ==
PROVIDERS: PCP Family Medicine; Referring Provider Family Medicine; Visit Provider Family Medicine
DX: Z12.31 Encounter for screening mammogram for malignant neoplasm of breast (principal)
CPT/HCPCS: 77063; 77067

== ENCOUNTER → 2023-12-11 | Outpatient (CLI) | payer BC, SELFPAY ==
--- NOTE | 2023-12-11 09:03 | RAD_ITS ---
STUDY: X-RAY - RIGHT SHOULDER REASON FOR EXAM: Female, 63 years old. SHOULDER PAIN TECHNIQUE: 4 view(s) of the shoulder. COMPARISON: None. FINDINGS: Normal glenohumeral articulation. Normal acromioclavicular joint. Normal acromion. Normal humeral head and visualized proximal humerus. The soft tissue structures are unremarkable. Normal visualized pulmonary apex. RAD/Shoulder min 2 Views IMPRESSION: Normal x-ray examination of the shoulder. Electronically Signed: Ezequiel Ronquillo MD at 23:03 EDT ,
== END | disposition home or self-care (01) ==
LOC: MTRAD 09:00
PROVIDERS: PCP Family Medicine; Referring Provider Family Medicine; Visit Provider Family Medicine
DX: M25.511 Pain in right shoulder (principal)
CPT/HCPCS: 73030

== ENCOUNTER → 2024-02-19 | Outpatient (CLI) | payer BC, SELFPAY ==
[2024-02-19 18:05] LABS: Absolute Lymphocyte Count 1.49 X10^3/uL (0.83-4.51); Absolute Neutrophil Count 5.7 X10^3/uL (2.0-7.7); Basophil# 0.04 X10^3/uL; Basophil% 0.5 % (0-1); Eosinophil# 0.14 X10^3/uL; Eosinophils% 1.8 % (0-5); Hematocrit 36.1 % (37-47); Hemoglobin 11.4 g/dL (12.0-15.0); Lymphocyte # 1.49 X10^3/ul (0.83-4.51); Lymphocyte % 18.7 % (19-41); Mean Corp Hgb Conc 31.6 g/dL (32-36); Mean Corpuscular Hgb 27.7 pg (27.0-32.0); Mean Corpuscular Volume 87.8 fL (81-99); Monocyte# 0.62 X10^3/uL; Monocyte% 7.8 % (0-10); NRBC Flagged by Analyzer 0 % (0-5); Neutrophil # 5.68 X10^3/uL (2.7-7.7); Neutrophil % 71.1 % (47-70); Platelet Count 288 K/mm3 (150-450); RBC Distribution Width CV 12.9 % (11.6-14.6); RBC Distribution Width SD 41.6 fl (35.1-43.9); Red Blood Count 4.11 M/mm3 (4.2-5.4)
[2024-02-19 18:44] LABS: ALB/GLOB Ratio 1.1 RATIO (0.9-2.4); AST(SGOT) 40 U/L (15-37); Alanine Aminotransfer ALT/SGPT 37 U/L (13-56); Albumin, Serum 3.9 g/dL (3.2-5.0); Alkaline Phosphatase 117 U/L (45-117); Anion Gap 9 (5-15); BUN 19 mg/dL (7-18); BUN/Creat Ratio 13.2 RATIO (10-20); Calcium,Total 9.6 mg/dL (8.5-10.1); Chloride 105 mmol/L (98-107); Creatinine, Serum 1.44 mg/dL (0.55-1.02); EST Glomerular Filtration Rate 39 mL/min (>60); Est Glom Filt Rate - Afr Amer 47 mL/min (>60); Globulin 3.7 g/dL (2.2-4.2); Glucose 91 mg/dL (74-106); Potassium 3.8 mmol/L (3.5-5.1); Protein, Total 7.6 g/dL (6.4-8.2); Sodium Level 138 mmol/L (136-145); Thyroid Stim Hormone (TSH) 3.63 uIU/mL (0.358-3.74)
== END | disposition home or self-care (01) ==
PROVIDERS: PCP Family Medicine; Referring Provider Family Medicine; Visit Provider Family Medicine
DX: R42 Dizziness and giddiness (principal)
CPT/HCPCS: 36415; 80053; 84443; 85025

== ENCOUNTER → 2024-11-12 | Outpatient (CLI) | payer MEDICARE, SELFPAY ==
[2024-11-12 13:32] LABS: Anion Gap 12 (5-15); BUN 10 mg/dL (4-19); BUN/Creat Ratio 11.3 RATIO (10-20); Calcium,Total 9.7 mg/dL (7.6-11.0); Carbon Dioxide 24.4 mmol/L (21.0-32.0); Chloride 103 mmol/L (98-108); Cholesterol 162 mg/dL (<=200); Creatinine, Serum 0.92 mg/dL (0.70-1.20); EST Glomerular Filtration Rate 69 (>60); Glucose 82 mg/dL (70-99); High Density Lipoprotein 81 mg/dL; Low Density Lipoprotein Calc. 62 mg/dL; Potassium 4.7 mmol/L (3.3-5.1); Sodium Level 139 mmol/L (133-145); Triglycerides 93 mg/dL; Very Low Density Lipoprotein 19 mg/dL (5-40)
== END | disposition home or self-care (01) ==
LOC: MFPLAB 09:39
PROVIDERS: PCP Family Medicine; Referring Provider Family Medicine; Visit Provider Family Medicine
DX: E78.5 Hyperlipidemia, unspecified (principal); N28.9 Disorder of kidney and ureter, unspecified; L65.9 Nonscarring hair loss, unspecified
CPT/HCPCS: 36415; 80048; 80061; 84443

== ENCOUNTER → 2025-04-28 | Outpatient (CLI) | payer MEDICARE, OTHER, SELFPAY ==
--- NOTE | 2025-04-28 12:17 | BI_ITS ---
EXAM: SCRN MAMM (CAD)W/KOLE BILAT DATE: 04/28/2025 CLINICAL HISTORY: F, Age 64 y/o , SCREENING TECHNIQUE: Procedure Code: BISMWCADBTOM Modality: MG Procedure: SCRN MAMM (CAD)W/KOLE BILAT COMPARISON: Prior exam(s) were compared FINDINGS: TISSUE DENSITY: The breasts are heterogeneously dense, which may obscure small masses. Bilateral Breast Mammographic Findings: Left breast: There is questionable area of architectural distortion in the outer left breast posterior depth (left CC frame 36) Right breast: No suspicious masses, calcifications or other abnormalities are identified. BI/SCRN MAMM (CAD)W/KOLE BILAT IMPRESSION: Additional imaging is recommended of the left breast with diagnostic left breas t mammogram spot compression views and possible ultrasound scanning the outer left breast. No mammographic evidence of malignancy in the right breast. OVERALL FINAL ASSESSMENT BI-RADS 0: INCOMPLETE - NEED ADDITIONAL IMAGING EVALUATION. RECOMMENDATION: Additional Views obtained/call backs Additional Recommendation none A letter with findings and recommendations will be mailed to the patient. Reading Location: [id number]
--- OUTSIDE RECORDS SUMMARY | 2025-04-28 13:13 | XMS RPT_ITS | CCD ---
Author Organization [facility] Care Team Providers Care Design Intern Name Role Phone Saturnino Zepeda Primary Care Provider [phone] Ulises SENA, Dr. Lantigua Primary Care Provider [phone] Ulises SENA, Dr. Lantigua Attending Provider Ulises SENA, Dr. Lantigua Referring Provider Ulises SENA, Grzegorz Mora Primary Care Provider ULISES, GRZEGORZ Mora Primary Care Unavailable MALIKA, GIANFRANCO Referring Unavailable LUCAS, GRZEGORZ Mora Primary Care Unavailable MALIKA, GIANFRANCO Referring Unavailable MALIKA, GIANFRANCO Attending Unavailable LUCAS, GRZEGORZ Mora Primary Care Unavailable MALIKA, GIANFRANCO Referring Unavailable MALIKA, GIANFRANCO Attending Unavailable MALIKA, GIANFRANCO Referring Unavailable LUCAS, GRZEGORZ Mora Primary Care Unavailable MALIKA, GIANFRANCO Referring Unavailable LUCAS, GRZEGORZ R Primary Care Unavailable MALIKA, GIANFRANCO Attending Unavailable LUCAS, GRZEGORZ R Primary Care Unavailable MALIKA, GIANFRANCO Attending Unavailable LUCAS, GRZEGORZ Mora Primary Care Unavailable OCHOA, APRIL Referring Unavailable OCHOA, APRIL Referring Unavailable LUCAS, GRZEGORZ Mora Primary Care Unavailable LUCAS, GRZEGORZ R Primary Care Unavailable DON, APRIL Attending Unavailable LUCAS, GRZEGORZ Mora Primary Care Unavailable SATURNINO ZEPEDA Primary Care Unavailable Lucas, Grzegorz Referring Unavailable Lucas, Grzegorz Primary Care Unavailable Lucas, Grzegorz Attending Unavailable Lucas, Grzegorz Attending Unavailable Lucas, Grzegorz Referring Unavailable Lucas, Grzegorz Primary Care Unavailable Allergies Allergy Classification Reported Allergen(s) Allergy Type Date of Onset Reaction(s) Facility (17 sources) diphenhydrAMINE; Translations: [DIPHENHYDRAMINE HCL] Drug Allergy 06-11-20 13 Other: See Comments [facility] (20 sources) Morphine; Translations: [MORPHINE] Drug Allergy 06-14-20 13 Itching [facility] Work Phone: (17 sources) Sulfamethoxazole / Trimethoprim; Translations: [SULFAMETHOXAZOLE-TR IMETHOPRIM] Drug Allergy 06-11-20 13 [facility] (17 sources) Sulfonamides (Antibiotic); Translations: [SULFA (SULFONAMIDE ANTIBIOTICS)] Drug Allergy 06-11-20 13 [facility] (3 sources) Sulfamethoxazole Drug Allergy 11-03-19 nausea and vomiting [facility] (3 sources) Sulfonamides (Antibiotic) Allergy to substance 11-03-19 Other [facility] (3 sources) Trimethoprim Drug Allergy 11-03-19 nausea and vomiting [facility] (1 source) Morphine Drug Allergy 11-03-19 [facility] Rep[facility] (1 source) Sulfamethoxazole Drug Allergy 11-03-19 [facility] (1 source) Sulfonamides (Antibiotic) Drug allergy (disorder) 11-03-19 [facility] (1 source) Trimethoprim Drug Allergy 11-03-19 [facility] Medications Current Medications Medication Drug Class(es) Dates Sig (Normalized) Sig (Original) ALPRAZolam 0.5 mg oral tablet (17 sources) Benzodiazepine Start: 05-15-2021 take 1 tablet by mouth once daily Alprazolam 0.5 mg tablet Active 0.5 mg PO DAILY May 15, 2021 12:00am azithromycin 250 mg oral tablet (3 sources) Macrolide Antimicrobial Start: 06-13-2024 End: 06-18-2024 azithromycin (ZITHROMAX) 250 mg tablet Indications: URI, acute Take 2 tablets by mouth once daily for 1 day, THEN 1 tablet once daily for 4 days. Patient should start on June 13, 2024. 6 tablet 06/13/2024 06/18/2024 Active 24 hr buPROPion hydrochloride 300 mg extended release oral tablet (14 sources) Aminoketone Start: 04-05-2024 take 1 tablet by mouth every hour buPROPion XL (WELLBUTRIN XL) 300 mg 24 hr tablet Take 1 tablet by mouth every afternoon. 04/05/2024 Active FLUoxetine 20 mg oral tablet (20 sources) Serotonin Reuptake Inhibitor Start: 03-30-2024 take 3 tablets by mouth once FLUoxetine HCl 20 mg tablet Take 3 tablets by mouth every afternoon. 03/30/2024 Active Start: 03-31-2019 take 1 capsule by mo uth once daily Fluoxetine (Prozac) 10 mg capsule Active 10 mg PO DAILY March 31, 2019 12:00am Start: 11-05-2017 End: 03-31-2019 take 1 capsule by mouth once daily Fluoxetine 20 MG capsule Discontinued 20 mg PO DAILY November 05, 2017 12:00am March 31, 2019 2:28pm ibuprofen 400 mg oral tablet (16 sources) Nonsteroidal Anti-inflammatory Drug Start: 06-18-2013 take 1 tablet by mouth every six hours ibuprofen 400 mg tablet Take 1 tablet by mouth every 6 hours. 0 06/18/2013 Active Comment on above: [facility] 6 hours. 24 hr nicotine 0.292 mg/hr transdermal system (20 sources) Cholinergic Nicotinic Agonist Start: 06-28-2013 apply 1 dose transdermal route once daily nicotine 7 mg/24 hr Apply 1 Patch as directed once daily. 30 Patch 2 06/28/2013 Active apply 1 dose transde rmal route every twenty-four hours nicotine (NICODERM CQ) 14 mg/24 hr Apply 1 Patch as directed every 24 hours. Active Comment on above: Apply 1 Patch as dir ected every 24 hours. Apply 1 Patch as dir ected once daily. nicotine - verify patch (16 sources) Start: 06-18-20 13 apply 7 doses transdermal route every eight hours nicotine - verify patch 7 Each every 8 hours. 7 Each 0 06/18/2013 Active Comment on above: 7 Each every 8 hours . nicotine -- REMOVE patch (16 sources) Start: 06-18-20 13 apply 7 doses transdermal route once daily nicotine -- REMOVE patch 7 Each once daily. 7 Each 0 06/18/2013 Active Comment on above: 7 Each once daily. rosuvastatin calcium 5 mg oral tablet (17 sources) HMG-CoA Reductase Inhibitor Start: 03-31-20 19 take 1 tablet by mouth once daily Rosuvastatin (Crestor) 5 mg tablet Active 5 mg PO DAILY March 31, 2019 12:00am traMADol hydrochloride 50 mg oral tablet (2 sources) Opioid Agonist Start: 03-01-20 End: 03-04-20 take 1 tablet by mouth every eight hours as needed for pain traMADol (ULTRAM) 50 mg tablet Indications: Closed fracture of right hand, initial encounter Take 1 tablet by mouth every 8 hours as needed for pain for up to 3 days. for pain. 9 tablet 03/01/2025 03/04/2025 Active ZOLMitriptan 5 mg oral tablet (20 sources) Serotonin-1b and Serotonin-1d Receptor Agonist Start: 07-13-20 ZOLMitriptan (ZOMIG) 5 mg tablet TAKE 1 TABLET BY MOUTH AT ONSET OF HEADACHE 07/13/2024 Active Start: 05-15-2021 End: 08-10-2021 take 1 tablet by mouth once as needed Zolmitriptan 2.5 mg tablet Active 2.5 mg PO ONCE as needed August 10, 2021 10:12am Start: 06-10-2013 End: 03-31-2019 Zolmitriptan 2.5 MG tablet Discontinued 1.25 mg PO NEEDED as needed for MIGRAINES June 10, 2013 1:00am March 31, 2019 2:28pm Start: 06-10-2013 End: 03-31-2019 Zolmitriptan Discontinued 1. 25 MG PO NEEDED June 10, 2013 1:00am March 31, 2019 2:28pm Completed/Discontinued Medications Medication Drug Class(es) Dates Sig (Normalized) Sig (Original) acetaminophen 325 mg / HYDROcodone bitartrate 5 mg oral tablet (3 sources) Opioid Agonist Start: 11-11-2017 End: 11-24-2017 Hydrocodone-Acetami nophen 1 TABLET tablet Discontinued 1 - 2 {tbl} PO EVERY 6 HOURS NEEDED as needed for Pain 60 November 11, 2017 12:00am November 24, 2017 11:05am Start: 11-11-2017 End: 11-24-2017 take 1 tablet by mouth every six hours as needed Hydrocodone-Acetaminophen Discontinued 1 - 2 TABLET PO EVERY 6 HOURS NEEDED 60 November 11, 2017 12:00am November 24, 2017 11:05am acetaminophen 325 mg / oxyCODONE hydrochloride 5 mg oral tablet (3 sources) Opioid Agonist Start: 06-27-2013 End: 10-08-2017 Oxycodone-Acetaminophen 1 TABLET tablet Discontinued 1 {tbl} PO EVERY 4 HOURS NEEDED as needed for Pain June 27, 2013 1:00am October 08, 2017 9:26am Start: 06-27-2013 End: 10-08-2017 take 1 tablet by mouth every four hours as needed Oxycodone-Acetaminophen Discontinued 1 TABLET PO EVERY 4 HOURS NEEDED June 27, 2013 1:00am October 08, 2017 9:26am [id number] actuat albuterol 0.09 mg/actuat metered dose inhaler (3 sources) beta2-Adrenergic Agonist Start: 05-15-2021 End: 08-10-2021 Albuterol Sulfate 90 mcg/actuation HFA aerosol inhaler Discontinued 2 NMA INHALATION Q4H as needed for shortness of breath or wheezing 8.May 15, 2021 12:00am August 10, 2021 10:13am administer with spacer Start: 05-15-2021 End: 08-10-2021 take 1 puff(s) by inhalation every four hours Albuterol Sulfate Discontinued 2 PUFF INHALATION Q4H 8.May 15, 2021 12:00am August 10, 2021 10:13am administer with spacer docusate sodium 100 mg oral capsule (3 sources) Start: 11-11-2017 End: 05-15-2021 take 1 capsule by mouth twice daily as needed for constipation Docusate Sodium 100 MG capsule Discontinued 100 mg PO TWICE DAILY NEEDED as needed for Constipation November 11, 2017 12:00am May 15, 2021 7:57am lansoprazole 30 mg delayed release oral capsule (20 sources) Proton Pump Inhibitor Start: 06-16-2019 End: 05-15-2021 take 1 capsule by mouth once daily Lansoprazole 30 MG capsule,delayed release(DR/EC) Discontinued 30 mg PO DAILY June 16, 2019 1:00am May 15, 2021 7:57am Start: 03-31-2019 take 2 capsules by m outh once daily Lansoprazole (Prevacid) 15 mg capsule,delayed release(DR/EC) Active 30 mg PO DAILY March 31, 2019 12:00am Start: 06-09-2013 End: 03-31-2019 take 1 capsule by mouth once daily Lansoprazole 15 MG capsule Discontinued 15 mg PO DAILY June 09, 2013 1:00am March 31, 2019 2:28pm Comment on above: Take 30 mg by mouth once daily. methylPREDNISolone 4 mg oral tablet (3 sources) Corticosteroid Start: 2017 End: 2018 Methylprednisolone 4 MG tablet Discontinued 4 mg PO DIRECTED November 11, 2017 12:00am March 31, 2019 2:28pm naproxen 500 mg oral tablet (3 sources) Nonsteroidal Anti-inflammatory Drug Start: 2014 End: 2018 take 1 tablet by mouth twice daily Naproxen 500 MG tablet Discontinued 500 mg PO TWICE A DAY August 29, 2014 1:00am March 31, 2019 2:28pm promethazine hydrochloride 25 mg oral tablet (3 sources) Phenothiazine Start: 2017 End: 2017 take 1 tablet by mouth every four hours as needed for nausea Promethazine 25 MG tablet Discontinued 25 mg PO EVERY 4 HOURS NEEDED as needed for Nausea November 11, 2017 12:00am November 24, 2017 11:06am Problems Active Problems Problem Classification Problem Date Documented Da te Episodic/Chronic Cardiac dysrhythmias (3 sources) Palpitations; Translations: [Palpitations] 09-21-2021 Episodic Chronic obstructive pulmonary disease and bronchiectasis (9 sources) Pulmonary emphysema; Translations: [Emphysema, unspecified] 05-15-2021 Chronic Disorders of lipid metabolism (1 source) Hyperlipidemia, unspecified; Translations: [Hyperlipidemia, unspecified] Onset: 5 Chronic Esophageal disorders (3 sources) Gastroesophageal reflux disease; Translations: [Gastro-esophageal reflux disease without esophagitis] 11-11-2017 Chronic Fracture of upper limb (15 sources) Closed fracture of right hand; Translations: [Unspecified fracture of right wrist and hand, initial encounter for closed fracture] Onset: 5 03-01-2025 Episodic Heart valve disorders (3 sources) Mitral valve prolapse; Translations: [Nonrheumatic mitral (valve) prolapse] 09-21-2021 Chronic Nonspecific chest pain (3 sources) Chest pain; Translations: [Chest pain, unspecified] 09-21-2021 Episodic Other aftercare (1 source) Long-term current use of benzodiazepine; Translations: [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] 03-01-2025 Episodic Other aftercare (1 source) 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; Translations: [Long-term current use of benzodiazepine] Onset: 5 Episodic Other connective tissue disease (9 sources) Pain in right hand; Translations: [Pain in right hand] 03-01-2025 Episodic Other connective tissue disease (1 source) Pain in right hand; Translations: [Right hand pain] Onset: 5 Episodic Other gastrointestinal disorders (3 sources) Diarrhea; Translations: [Diarrhea, unspecified] 03-20-2021 Episodic Other lower respiratory disease (3 sources) Dyspnea on exertion; Translations: [Other forms of dyspnea] 07-05-2021 Episodic Other lower respiratory disease (3 sources) Nodule of lung; Translations: [Solitary pulmonary nodule] 07-05-2021 Episodic Other lower respiratory disease (3 sources) H/O: pneumothorax; Translations: [Personal history of other diseases of the respiratory system] 07-05-2021 Episodic Comment on above: history of a seconda ry pneumothorax with persistent air leak, for which she underwent a right VATS with right upper lobe wedge resection, mechanical and doxycycline pleurodesis and creation of a pleural tent in June 2013. Other screening for suspected conditions (not mental disorders or infectious disease) (1 source) Encounter for other screening for malignant neoplasm of breast; Translations: [Encounter for other screening for malignant neoplasm of breast] Onset: 5 Episodic Other upper respiratory infections (1 source) Acute upper respiratory infection; Translations: [Acute upper respiratory infection, unspecified] 06-12-2024 Episodic Sprains and strains (3 sources) Strain of abdominal muscle; Translations: [Strain of muscle, fascia and tendon of abdomen, initial encounter] Onset: 5 Episodic Substance-related disorders (19 sources) Tobacco smoking behavior - finding; Translations: [Nicotine dependence, unspecified, uncomplicated] Onset: 3 05-15-2021 Chronic Syncope (3 sources) Vasovagal symptom; Translations: [Syncope and collapse] 03-20-2021 Episodic Unclassified (16 sources) DISPOSITION AND FOLLOW-UP Onset: 3 07-30-2021 Unclassified (14 sources) Drug therapy finding; Translations: [DVT prophylaxis] Onset: 3 07-30-2021 Unclassified (1 source) Closed fracture of right hand 03-01-2025 Past or Other Problems Problem Classification Problem Date Documented Da te Episodic/Chronic Calculus of urinary tract (16 sources) Ureteric stone; Translations: [Calculus of ureter] Onset: 11-07-2011 11-07-2011 Episodic Mycoses (16 sources) Mycosis; Translations: [Candidiasis, unspecified] Onset: 06-16-2013 07-30-2021 Episodic Pleurisy; pneumothorax; pulmonary collapse (16 sources) Right pneumothorax; Translations: [Pneumothorax, unspecified] Onset: 06-11-2013 07-30-2021 Episodic Pneumonia (except that caused by tuberculosis or sexually transmitted disease) (16 sources) Pneumonia; Translations: [Pneumonia, unspecified organism] Onset: 06-16-2013 07-30-2021 Episodic Residual codes; unclassified (2 sources) Patient encounter status; Translations: [Encounter for prophylactic measures, unspecified] Onset: 06-11-2013 Episodic Residual codes; unclassified (16 sources) Acute pain; Translations: [Pain, unspecified] Onset: 06-16-2013 07-30-2021 Episodic Unclassified (1 source) Closed fracture of fifth metacarpal bone of right hand 03-30-2025 Results Test Name Value Interpretation Reference Range Facility [facility] 04-15-2025 CNCO Letter Text Normal [facility] CNOVon 04-15-2025 [facility] CLEMENCIAELISABETH Pisano ([id number]) 1960 F Date Time Provider Department 04/15/25 3:30 PM [address]ANCO PAYNE V [facility] During your visit today, we recorded the following information about you: Nicole Park MA 04/15/2025 3:50 PM Signed AMB ROOMING INTAKE FLOWSHEET DATA Gianfranco Payne V, DO 04/15/2025 3:50 PM Signed Subjective Elisabeth Tony Clemencia is a 64-year-old female presenting for follow-up of a hand fracture. Elisabeth reports improvement in discomfort since the initial injury. She has been intermittently removing the splint, particularly at night while watching TV, and engages in gentle movements to alleviate stiffness, which she identifies as the primary issue. 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 Like I'm having a harder, yeah, it's like this one doesn't let you. She denies significant pain, characterizing her symptoms [...] right hand with routine healing, subsequent encounter (R60.338D) Healing is progressing well with radiographic evidence [...] for return to regular activities. Recording using [employer] software for draft documentation of the visit was discussed with the patient/authorized traveling sales representative; all questions welcomed and answered. Patient/authorized traveling sales representative agreed to proceed Referring Provider: GIANFRANCO PAYNE V [[id number]] Allergies As of Date: 04/15/2025 Noted Allergy Reaction BACTRIM (SULFAMETHOXAZOLE-TRIME TH*06/11/2013 2 - Rash MORPHINE 06/14/2013 9 - [...] right hand with routine healing, subsequent encounter [I10.623D] Prescriptions as of 04/15/2025 - ZOLMitriptan (ZOMIG) [...] 11/07/2011 Pneumothorax, right [J93.9] 06/11/2013 DVT prophylaxis [[id number]] 06/11/2013 DISPOSITION AND FOLLOW-UP [V999.01] 06/11/2013 Smoking addiction [F17.200] 06/11/2013 Acute pain [R52] 06/16/2013 Pneumonia [J18.9] 06/16/2013 Infection due to yeast [B37.9] 06/16/2013 Encounter Status:Closed by GIANFRANCO PAYNE V on 04/15/25 [facility] XR HAND 3V PA/LAT/OBL RTon 0 04-15-2025 XR HAND 3V PA/LAT/OBL RT * * *Final Report* * * DATE [...] with unchanged configuration of the fracture fragments. Facing Slitter: DONYA Transcribe Date/Time: Apr 24 2025 9:56A Dictated by : REYES VELASQUEZ MD This examination was interpreted and the report reviewed and electronically signed by: REYES VELASQUEZ MD on Apr 24 2025 9:58AM EST [id number] Normal [facility] CNCOon 04-01-2025 CNCO Letter Text Normal [facility] CNOVon 04-01-2025 CNOV Office Visit ([facility] ) CLEMENCIAELISABETH Cecily ([id number]) 1960 F Date Time Provider Department 04/01/25 3:00 PM [address]CO PAYNE V [facility] During your visit today, we recorded [...] right hand with routine healing, subsequent encounter (F81.480Y) Patient is 4.5 weeks post-injury, with substantial [...] 2 weeks with repeat X-ray. Recording using [employer] software for draft documentation of the visit was discussed with the patient/authorized traveling sales representative; all questions welcomed and answered. Patient/authorized traveling sales representative agreed to proceed Referring Provider: GIANFRANCO PAYNE V [[id number]] Allergies As of Date: 04/01/2025 Noted Allergy Reaction BACTRIM (SULFAMETHOXAZOLE-TRIME TH*06/11/2013 2 - Rash MORPHINE 06/14/2013 9 - Itching BENADRYL (DIPHENHYDRAMINE HCL) 06/11/2013 14 - Other: See Comments Comments: tachycardia SULFA (SULFONAMIDE ANTIBIOTICS) 06/11/2013 2 - Rash Date Reviewed: 03/18/2025 Reviewed by: Nicole Park MA - Fully Assessed Primary Visit Diagnosis:Closed displaced fracture of neck of fifth metacarpal bone of right hand with routine healing, subsequent encounter [X53.913G] Prescriptions as of 04/01/2025 - ZOLMitriptan (ZOMIG) [...] 11/07/2011 Pneumothorax, right [J93.9] 06/11/2013 DVT prophylaxis [[id number]] 06/11/2013 DISPOSITION AND FOLLOW-UP [V999.01] 06/11/2013 Smoking addiction [F17.200] 06/11/2013 Acute pain [R52] 06/16/2013 Pneumonia [J18.9] 06/16/2013 Infection due to yeast [B37.9] 06/16/2013 Encounter Status:Closed by GIANFRANCO PAYNE V on 04/01/25 [facility] XR HAND 3V PA/LAT/OBL RTon 0 03-31-2025 XR HAND 3V PA/LAT/OBL RT * * *Final Report* * * DATE [...] Healing fifth metacarpal fracture with unchanged alignment. Facing Slitter: DONYA Transcribe Date/Time: Apr 07 2025 6:31P Dictated by : PENG MANZANO MD This examination was interpreted and the report reviewed and electronically signed by: PENG MANZANO MD on Apr 07 2025 6:31PM EST [id number] [facility] CNCOon 03-18-2025 CNCO Letter Text [facility] CNOVon 03-18-2025 CNOV Office Visit ([facility] ) ELISABETH HAYS ([id number]) 1960 F Date Time Provider Department 03/18/25 2:30 PM [facility]ANCO [facility] During your visit today, we recorded the [...] of Date: 03/18/2025 Noted Allergy Reaction BACTRIM (SULFAMETHOXAZOLE-TRIME TH*06/11/2013 2 - Rash MORPHINE 06/14/2013 9 - [...] [S62.306A] Order(s):XR HAND GENERAL 3V PA/LAT/OBL RIGHT [[id number]] Order #: [id number] FUTURE Prescriptions as of 03/18/2025 - ZOLMitriptan [...] 11/07/2011 Pneumothorax, right [J93.9] 06/11/2013 DVT prophylaxis [[id number]] 06/11/2013 DISPOSITION AND FOLLOW-UP [V999.01] 06/11/2013 Smoking addiction [F17.200] 06/11/2013 Acute pain [R52] 06/16/2013 Pneumonia [J18.9] 06/16/2013 Infection due to yeast [B37.9] 06/16/2013 Encounter Status:Closed by GIANFRANCO PAYNE V on 03/18/25 [facility] XR HAND 3V PA/LAT/OBL RTon 0 03-18-2025 XR HAND 3V PA/LAT/OBL RT * * *Final Report* * * DATE [...] GIANFRANCO PAYNE on 03/27/2025 12:35 PM via [employer] staff message by imaging services Navigator. Facing Slitter: PSCB Transcribe Date/Time: Mar 27 2025 12:33P Dictated by : REYES VELASQUEZ MD This examination was interpreted and the report reviewed and electronically signed by: REYES VELASQUEZ MD on Mar 27 2025 12:36PM EST [id number] Normal [facility] CNCOon 03-02-2025 CNCO Letter Text Normal [facility] CNOVon 03-02-2025 CNOV Office Visit ([facility] ) ELISABETH HAYS ([id number]) 1960 F Date Time Provider Department 03/02/25 1:00 PM [address] PAYNE V [facility] During your visit today, we recorded [...] due to swelling. 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 Recording using [employer] software for draft documentation of the visit was discussed with the patient/authorized traveling sales representative; all questions welcomed and answered. Patient/authorized traveling sales representative agreed to proceed Referring Provider: APRIL OCHOA [[id number]] Allergies As of Date: 03/02/2025 Noted Allergy Reaction BACTRIM (SULFAMETHOXAZOLE-TRIME TH*06/11/2013 2 - Rash MORPHINE 06/14/2013 9 - Itching BENADRYL (DIPHENHYDRAMINE HCL) 06/11/2013 14 - Other: See Comments Comments: tachycardia SULFA (SULFONAMIDE ANTIBIOTICS) 06/11/2013 2 - Rash Date Reviewed: 03/02/2025 Reviewed by: Nicole Park MA - Fully Assessed Reason for Visit: Right hand pain [Other] Visit Diagnoses:Right hand pain [M79.641] Sprain of metacarpophalangeal (MCP) joint of right little finger, initial encounter [K56.333P] Order(s):CONSULT PANEL TO ORTHOPAEDICS [415552] Order #: [id number]: 1 Prescriptions as of 03/02/2025 - traMADol [...] 11/07/2011 Pneumothorax, right [J93.9] 06/11/2013 DVT prophylaxis [[id number]] 06/11/2013 DISPOSITION AND FOLLOW-UP [V999.01] 06/11/2013 Smoking addiction [F17.200] 06/11/2013 Acute pain [R52] 06/16/2013 Pneumonia [J18.9] 06/16/2013 Infection due to yeast [B37.9] 06/16/2013 Encounter Status:Closed by GIANFRANCO PAYNE V on 03/02/25 [facility] CNOVon 03-01-2025 CNOV Office Visit ([facility]) ELISABETH HAYS ([id number]) 1960 F Date Time Provider Department 03/01/25 6:15 PM APRIL OCHOA During your visit today, we recorded the following information about you: Temperature Pulse Respiration Blood pressure 97.7 degrees 70/minute 18/minute 110/76 Weight 52.1 kg April Ochoa APRN.CNP 03/01/2025 7:07 PM Signed FRACTURES [...] wet, it can be dried with a fine hairer. 4. Do not put pressure on any [...] or discharge coming from under the cast. April Ochoa, SADI.OPTICAL TECHNICIAN 03/01/2025 7:23 PM Signed [facility] Subjective Elisabeth Hays is a 64 year old female. Patient presents with: right hand pain: X 1 day-playing with grandson RAVEN Right Hand Pain: - Injury occurred around 11:00-11:30 today while playing with her 14-year-old grandson. - Describes the incident as zigged and he zagged, resulting in the injury. - Denies punching [...] 06/09/2013 post procedure air leak ALLERGIES Bactrim [Sulfamethoxazole-Trime thoprim], Morphine, Benadryl [Diphenhydramine Hcl], and Sulfa (Sulfonamide [...] (20.0 ttl pk-yrs) Types: Cigarettes Start date: (more content not included)... Normal [facility] Fracture and Fracture Disloc ationon 03-01-2025 April Ochoa APRN.CNP 03/01/2025 7:23 PM Fracture and Fracture Dislocation Date/Time: 03/01/2025 7:00 PM Performed by: April Ochoa APRN.OPTICAL TECHNICIAN Authorized by: April Ochoa APRN.HEBER Informed Consent Consent Obtained: Verbal Ridge Protocol A moment to CARE was completed. [...] communication to the patient or surrogate applicable. [facility] XR HAND 3V PA/LAT/OBL RTon 0 03-01-2025 XR HAND 3V PA/LAT/OBL RT * * *Final Report* * * DATE [...] are otherwise maintained. No other significant abnormality. Facing Slitter: DONYA Transcribe Date/Time: Mar 01 2025 7:05P Dictated by : EYAL MA MD This examination was interpreted and the report reviewed and electronically signed by: EYAL MA MD on Mar 01 2025 7:09PM EST [id number] Normal [facility] XR Hand - right PA and Later al and Obliqueon 03-01-2025 IMPRESSION: No acute fracture or dislocation. Mild degenerative changes at the first CMC joint. Joint spaces are otherwise maintained. No other significant abnormality. Facing Slitter: PSCB Transcribe Date/Time: Mar 01 2025 7:05P Dictated by : EYAL MA MD This examination was interpreted and the report reviewed and electronically signed by: EYAL MA MD on Mar 01 2025 7:09PM EST DIVISION OF RADIOLOGY * * *Final Report* * * DATE [...] (projections): 3 M: XB_1 COMPARISON: None RESULT/ DIVISION OF RADIOLOGY Provider, [facility] - 03/01/2025 * * *Final Report* * * DATE [...] (projections): 3 M: XB_1 COMPARISON: None RESULT/ IMPRESSION IMPRESSION: No acute fracture or dislocation. Mild degenerative changes at the first CMC joint. Joint spaces are otherwise maintained. No other significant abnormality. Facing Slitter: PSCB Transcribe Date/Time: Mar 01 2025 7:05P Dictated by : EYAL MA MD This examination was interpreted and the report reviewed and electronically signed by: EYAL MA MD on Mar 01 2025 7:09PM EST [facility] Radiology Study observation (narrative) [facility] XR Hand - right PA and Later al and ObliqueOrdered By: Ccf Provider on 03-01-2025 [facility] Anion gap in Serum or Plasma Ordered By: Grzegorz Lucas on 11-12-2024 Anion gap [Moles/Vol] 12 mmol/L - [facility] BUN/creatinine ratioOrdered By: Grzegorz Lucas on 11-12-2024 Urea nitrogen/Creatinine [Mass ratio] 11.3 mg/mg - [facility] Basic Metabolic Profile (BMP )on 11-12-2024 BUN/CRE 11.3 RATIO Normal 05-23 [facility] Comment on above: Performed By: #### L 500.2500, L500.4100, L501.9520 #### [facility] [address] [place], [address] Calcium [Mass/Vol] 9.7 mg/dL Normal 7.6-11.[address] [facility] Comment on above: Performed By: #### L 500.2500, L500.4100, L501.9520 #### [facility] [address] [place], [address] Chloride [Moles/Vol] 103 mmol/L Normal 98-108 [facility] Comment on above: Performed By: #### L 500.2500, L500.4100, L501.9520 #### [facility] [address] [place], [address] CO2 [Moles/Vol] 24.4 mmol/L Normal 21.0-32.0 [facility] Comment on above: Performed By: #### L 500.2500, L500.4100, L501.9520 #### [facility] [address] [place], [address] Creatinine [Mass/Vol] 0.92 mg/dL Normal 0.70-1.20 [facility] Comment on above: Performed By: #### L 500.2500, L500.4100, L501.9520 #### [facility] [address] [place], [address] GAP 12 Normal 5-15 [facility] Comment on above: Performed By: #### L 500.2500, L500.4100, L501.9520 #### [facility] [address] [place], [address] GFR/1.73 sq M.predicted among non-blacks MDRD (S/P/Bld) [Vol rate/Area] 69 mL/min/{1.73_m2} Normal >60 [facility] Comment on above: Result Comment: mL/m in/1.73m2 CKD-EPI Creatinine Equation (2020) Performed By: #### L 500.2500, L500.4100, L501.9520 #### [facility] [address] [place], [address] Glucose [Mass/Vol] 82 mg/dL Normal 70-[address] [facility] Comment on above: Performed By: #### L 500.2500, L500.4100, L501.9520 #### [facility] [address] [place], [address] Potassium [Moles/Vol] 4.7 mmol/L Normal 3.3-5.1 [facility] Comment on above: Performed By: #### L 500.2500, L500.4100, L501.9520 #### [facility] [address] [place], [address] Sodium [Moles/Vol] 139 mmol/L Normal 133-[address] [facility] Comment on above: Performed By: #### L 500.2500, L500.4100, L501.9520 #### [facility] [address] [place], [address] Urea nitrogen [Mass/Vol] 10 mg/dL Normal 4-19 [facility] Comment on above: Performed By: #### L 500.2500, L500.4100, L501.9520 #### [facility] [address] [place], [address] Calculated very low density lipoprotein (VLDL) cholesterol measurementOrdered By: Grzegorz Lucas on 11-12-2024 VLDL Cholesterol 19 mg/dL 5-40 [facility] Carbon dioxide, total [Moles /volume] in Central venous bloodOrdered By: Grzegorz Lucas on 11-12-2024 CO2 [Moles/Vol] 24.4 mmol/L 21.0-32.0 [facility] Chloride assayOrdered By: Mateo Lucas on 11-12-2024 Chloride [Moles/Vol] 103 mmol/L 98-108 [facility] GFR/1.73 sq M.predicted lynn g non-blacks MDRD (S/P/Bld) [Vol rate/Area]Ordered By: Grzegorz Lucas on 11-12-2024 Estimated GFR (MDRD) Non-Af Amer 69 >60 [facility] Comment on above: mL/min/1.73m2 CKD-EP I Creatinine Equation (2020) LDL calc ser/plasOrdered By: Grzegorz Lucas on 11-12-2024 LDL Cholesterol, Calculated 62 mg/dL [facility] Comment on above: Omxhygmmwt=600-657 m g/dL & Higher Sqxm=201 mg/dL or greater Lipid Profileon 11-12-2024 CHOL:HDL 2.00 Normal [facility] Comment on above: Performed By: #### L 500.2500, L500.4100, L501.9520 #### [facility] [address] [place], [address] Cholesterol [Mass/Vol] 162 mg/dL Normal <=200 [facility] Comment on above: Result Comment: Chol esterol level, Desirable <200 mg/dL Borderline high cholesterol 200-239 mg/dL High cholesterol >=240 mg/dL Recommendations of the NCEP Adult Treatment Panel for the following risk-cutoff thresholds for the [place] population. Performed By: #### L 500.2500, L500.4100, L501.9520 #### [facility] [address] [place], [address] Cholesterol in HDL [Mass/Vol] 81 mg/dL Normal [facility] Comment on above: Result Comment: Mirtha onal Cholesterol Education Program (NCEP) guidelines: <40 mg/dL: Low HDL-cholesterol (major risk factor for CHD) >= 60 mg/dL: High HDL-cholesterol (negative risk factor for CHD) HDL-cholesterol is affected by a number of factors, e.g. smoking, exercise, hormones, sex and age. Performed By: #### L 500.2500, L500.4100, L501.9520 #### [facility] [address] [place], [address] Cholesterol in LDL [Mass/Vol] 62 mg/dL Normal [facility] Comment on above: Result Comment: Bord gimbgm=050-356 mg/dL Higher Iwig=018 mg/dL or greater Performed By: #### L 500.2500, L500.4100, L501.9520 #### [facility] [address] [place], [address] Cholesterol in VLDL [Mass/Vol] 19 mg/dL Normal 5-40 [facility] Comment on above: Performed By: #### L 500.2500, L500.4100, L501.9520 #### [facility] [address] [place], [address] Triglyceride [Mass/Vol] 93 mg/dL Normal [facility] Comment on above: Result Comment: The drugs N-Acetylcysteine and Metamizole may falsely depress this assay. Normal range: <150 mg/dL Borderline High: 150-199 mg/dL High: 200-499 mg/dL Very High: >500 mg/dL Performed By: #### L 500.2500, L500.4100, L501.9520 #### [facility] [address] [place], [address] Potassium (Unsp spec) [Mass/ Vol]Ordered By: Grzegorz Lucas on 11-12-2024 Potassium [Moles/Vol] 4.7 mmol/L 3.3-5.1 [facility] Screening total cholesterol/ high density lipoprotein (HDL) cholesterol ratioOrdered By: Grzegorz Lucas on 11-12-2024 Cholesterol.total/Chol esterol in HDL [Mass ratio] 2.00 {ratio} [facility] Serum creatinine measurement (mass/volume)Ordered By: Grzegorz Lucas on 11-12-2024 Creatinine [Mass/Vol] 0.92 mg/dL 0.70-1.20 [facility] Serum glucose measurement (m ass/volume)Ordered By: Grzegorz Lucas on 11-12-2024 Glucose [Mass/Vol] 82 mg/dL 70-[address] [facility] Serum or plasma calcium adryan urement (mass/volume)Ordered By: Grzegorz Lucas on 11-12-2024 Calcium [Mass/Vol] 9.7 mg/dL 7.6-11.[address] [facility] Serum or plasma cholesterol in HDL measurement (mass/volume)Ordered By: Grzegorz Lucas on 11-12-2024 Cholesterol in HDL [Mass/Vol] 81 mg/dL >40 [facility] Comment on above: National Cholesterol Education Program (NCEP) guidelines:<40 mg/dL: Low HDL-cholesterol (major risk factor for CHD)>= 60 mg/dL: High HDL-cholesterol (negative risk factor for CHD)HDL-cholesterol is affected by a number of factors, e.g. smoking, exercise, hormones, sex and age. Serum or plasma cholesterol measurement (mass/volume)Ordered By: Grzegorz Lucas on 11-12-2024 Cholesterol [Mass/Vol] 162 mg/dL <201 [facility] Comment on above: Cholesterol level, D esirable <200 mg/dLBorderline high cholesterol 200-239 mg/dLHigh cholesterol >=240 mg/dLRecommendations of the NCEP Adult Treatment Panel for the following risk-cutoff thresholds for the [place] population. Serum or plasma urea nitroge n measurement (mass/volume)Ordered By: Grzegorz Lucas on 11-12-2024 Urea nitrogen [Mass/Vol] 10 mg/dL 4-19 [facility] Sodium levelOrdered By: Grzegorz Lucas on 11-12-2024 Sodium [Moles/Vol] 139 mmol/L 133-[address] [facility] TSH DL <= 0.005 mIU/L QnOrde red By: Grzegorz Lucas on 11-12-2024 Thyroid Stimulating Hormone (TSH) 3.770 uIU/mL 0.300-4.200 [facility] Thyroid Stim Hormone (TSH)on 11-12-2024 TSH 3.770 uIU/mL Normal 0.300-4.200 [facility] Comment on above: Performed By: #### L 500.2500, L500.4100, L501.9520 #### [facility] [address] [place], [place], [id number] Triglycerides measurementOrd ered By: Grzegorz Lucas on 11-12-2024 Triglyceride [Mass/Vol] 93 mg/dL <199 [facility] Comment on above: The drugs N-Acetylcy steine and Metamizole may falsely depress this assay. Normal range: <150 mg/dLBorderline High: 150-199 mg/dLHigh: 200-499 mg/dLVery High: >500 mg/dL CNOVon 10-14-2024 CNOV Office Visit (UCWSTR ) CLEMENCIAELISABETH Pisano ([id number]) 1960 F Date Time Provider Department 10/14/24 8:30 AM ABRAM LUA [facility] During your visit today, we recorded the following information about you: Temperature Pulse Respiration Blood pressure 97.4 degrees 77/minute 18/minute 166/85 Weight 49.3 kg Abram Lua APRN.[facility] 10/14/2024 8:33 AM Signed [facility] Subjective Elisabeth Hays is a [...] history is provided by the patient. No foreign language teacher was used. Review of Systems Constitutional: Negative. [...] 06/09/2013 post procedure air leak ALLERGIES Bactrim [Sulfamethoxazole-Trime thoprim], Morphine, Benadryl [Diphenhydramine Hcl], and Sulfa (Sulfonamide [...] prn. - DOXYCYCLINE HYCLATE 100 MG TABLET Abram Lua APRN.OPTICAL TECHNICIAN [facility] Procedures Allergies As of Date: 10/14/2024 Noted Allergy Reaction BACTRIM (SULFAMETHOXAZOLE-TRIME TH*06/11/2013 2 - Rash MORPHINE 06/14/2013 9 - Itching BENADRYL (DIPHENHYDRAMINE HCL) 06/11/2013 14 - Other: See Comments Comments: tachycardia SULFA (SULFONAMIDE ANTIBIOTICS) 06/11/2013 2 - Rash Date Reviewed: 10/14/2024 Reviewed by: Aashish Blackwell MA - Fully Assessed Reason for Visit: Head Congestion [234] Cmt: Sinus congestion, pain and pressure, ST x6 days Primary Visit Diagnosis:Rhinosinusiti s [J32.9] Order(s):doxycycline (VIBRA-TABS) 100 mg tabletTake 1 [...] 1 tablet by mouth every afternoon. - FLUoxe (more content not included)... Normal [facility] Wan 06-13-2024 HEBERN Telephone (UCWSTR) ELISABETH HAYS ([id number]) 1960 F Date Time Provider Department 06/13/24 ABRAM LUA During your visit today, we recorded the following information about you: Abram Lua APRN.CNP 06/13/2024 8:06 AM Signed Negative for flu, covid and rsv Zeina Bajwa MA 06/13/2024 1:04 PM Signed Left message for pt to call back. TOVA Loja Alexandra, MA 06/13/2024 1:29 PM Signed Patient notified by NOC. Aashish Blackwell MA Allergies As of Date: 06/13/2024 Noted Allergy Reaction BACTRIM (SULFAMETHOXAZOLE-TRIME TH*06/11/2013 2 - Rash MORPHINE 06/14/2013 9 - [...] 11/07/2011 Pneumothorax, right [J93.9] 06/11/2013 DVT prophylaxis [[id number]] 06/11/2013 DISPOSITION AND FOLLOW-UP [V999.01] 06/11/2013 Smoking addiction [F17.200] 06/11/2013 Acute pain [R52] 06/16/2013 Pneumonia [J18.9] 06/16/2013 Infection due to yeast [B37.9] 06/16/2013 Encounter Status:Closed by AASHISH BLACKWELL on 06/13/24 Normal [facility] CNOVon 06-12-2024 CNOV Office Visit (UCWSTR ) CLEMENCIAELISABETH Pisano ([id number]) 1960 F Date Time Provider Department 06/12/24 12:30 PM [facility] During your visit today, we recorded the following information about you: Temperature Pulse Respiration Blood pressure 98 degrees 79/minute 18/minute 134/71 Weight 50 kg Abram Lua APRN.CNP 06/12/2024 12:51 PM Signed CC: [...] 06/09/2013 post procedure air leak ALLERGIES Bactrim [Sulfamethoxazole-Trime thoprim], Morphine, Benadryl [Diphenhydramine Hcl], and Sulfa (Sulfonamide [...] symptoms occur. Patient agreeable to treatment plan. Abram Lua APRN.OPTICAL TECHNICIAN Allergies As of Date: 06/12/2024 Noted Allergy Reaction BACTRIM (SULFAMETHOXAZOLE-TRIME TH*06/11/2013 2 - Rash MORPHINE 06/14/2013 9 - [...] AND RSV PCR, ROUTINE [[id number]] Order #: [id number]. #:[id number] [START ON 06/13/2024] azithromycin (ZITHROMAX) 250 mg tabletTake 2 tablets by mouth once daily for 1 day, THEN 1 tablet once daily for 4 days. Patient should start on June 13, 2024.Disp: 6 tabletRfl: 0 Prescriptions as of (more content not included)... Normal [facility] COVID AND INFLUENZA A/B AND RSV PCR, ROUTINEon 06-12-2024 SARS-CoV-2 (COVID-19) RNA DOREEN+probe Ql (Unsp spec) SARS-COV-2 (AGENT OF COVID-19) RNA: Not detected INFLUENZA A RNA: Not detected INFLUENZA B RNA: Not detected RESPIRATORY SYNCYTIAL VIRUS (RSV) RNA: Not detected Normal [facility] Comment on above: Performed By: #### C VFLRS ####[facility] LABCLIA [id number] [place] [address] [place] Basophil percentageOrdered B y: Grzegorz Lucas on 03-31-2023 Chloride [Moles/Vol] 109 mmol/L 98-107 [facility] Cholesterol [Mass/Vol] 176 mg/dL <200 [facility] Comment on above: <200 mg/dL Desirable 200-240 mg/dL Borderline >240 mg/dL High Risk Glucose [Mass/Vol] 90 mg/dL 74-[address] [facility] Potassium [Moles/Vol] 4.0 mmol/L 3.5-5.1 [facility] Sodium [Moles/Vol] 142 mmol/L 136-[address] [facility] Triglyceride [Mass/Vol] 77 mg/dL <199 [facility] Comment on above: The drugs N-Acetylcy steine and Metamizole may falsely depress this assay.Serum Triglycerides Reference Interval Normal <150 mg/dL Borderline high 150 - 199 mg/dL High 200 - 499 mg/dL Very High > or = 500 mg/dL Laboratory - Chemistry and C hemistry - challengeOrdered By: Grzegorz Lucas on 03-31-2023 CO2 [Moles/Vol] 28.0 mmol/L 21.0-32.0 [facility] Urea nitrogen/Creatinine [Mass ratio] 12.4 mg/mg 10-20 [facility] No Panel InformationOrdered By: Grzegorz Lucas on 03-31-2023 Estimated GFR (MDRD) Amer 82 mL/min >60 [facility] Comment on above: GFR Calc Estimated GFR (MDRD) Non-Af Amer 68 mL/min >60 [facility] Comment on above: Non- GFR Calc Thyroid Stimulating Hormone (TSH) 3.37 uIU/mL 0.358-3.74 [facility] Vitamin D 25-Hydroxy 80.0 ng/mL [facility] Comment on above: Vitamin D 25(OH) Sta tus Range Deficiency <20 ng/mL (50nmol/L) Insufficiency 20 - 30 ng/mL (50 - 75 nmol/L) Sufficiency 30 - 100 ng/mL (75 - 250 nmol/L) Toxicity >100 ng/mL (>250 nmol/L) Serum or plasma calcium adryan urement (mass/volume)Ordered By: Grzegorz Luacs on 03-31-2023 Calcium [Mass/Vol] 9.2 mg/dL 8.5-10.[address] [facility] Serum or plasma cholesterol in HDL measurement (mass/volume)Ordered By: Grzegorz Lucas on 03-31-2023 Cholesterol in HDL [Mass/Vol] 87 mg/dL >40 [facility] Comment on above: The drugs N-Acetylcy steine and Metamizole may falsely depress this assay. Reference Range HDL <40 mg/dL Low HDL Cholesterol HDL >or= 60 mg/dL High HDL Cholesterol Serum or plasma cholesterol in VLDL measurement (mass/volume)Ordered By: Grzegorz Lucas on 03-31-2023 Cholesterol in VLDL [Mass/Vol] 15 mg/dL 5-40 [facility] Serum or plasma creatinine m easurement (mass/volume)Ordered By: Grzegorz Lucas on 03-31-2023 Creatinine [Mass/Vol] 0.89 mg/dL 0.55-1.02 [facility] Comment on above: The validity of the calculated GFR & GFRAA in patients over 70 years has not been determined. Clinical correlation is essential. Serum or plasma low density lipoprotein (LDL) cholesterol measurement (mass/volume)Ordered By: Grzegorz Lucas on 03-31-2023 Cholesterol in LDL [Mass/Vol] 74 mg/dL 0-130 [facility] Serum or plasma urea nitroge n measurement (mass/volume)Ordered By: Grzegorz Lucas on 03-31-2023 Urea nitrogen [Mass/Vol] 11 mg/dL 7-18 [facility] Thin prep Papanicolaou smear with manual screeningOrdered By: Grzegorz Lucas on 03-31-2023 Thin prep Papanicolaou smear with manual screening 5 5-15 [facility] Vital Signs Date Time Vital Sign Value Performing Clinician Ronny castaneda 03-01-2025 18:19-0400 Body mass index (BMI) [Ratio] 19.11 kg/m2 April Ochoa APRN.OPTICAL TECHNICIAN Work Phone: [facility] 03-01-2025 18:19-0400 Body temperature 97.7 [degF] April Ochoa BILINGUAL MANAGER.OPTICAL TECHNICIAN Work Phone: [facility] 03-01-2025 18:19-0400 Body weight 52.1 kg April Ochoa BILINGUAL MANAGER.OPTICAL TECHNICIAN Work Phone: [facility] 03-01-2025 18:19-0400 Diastolic blood pressure 76 mm[Hg] April Ochoa BILINGUAL MANAGER.OPTICAL TECHNICIAN Work Phone: [facility] 03-01-2025 18:19-0400 Heart rate 70 /min April Ochoa BILINGUAL MANAGER.OPTICAL TECHNICIAN Work Phone: [facility] 03-01-2025 18:19-0400 Respiratory rate 18 /min Aprli Ochoa BILINGUAL MANAGER.OPTICAL TECHNICIAN Work Phone: [facility] 03-01-2025 18:19-0400 SaO2% (BldA) [Mass fraction] 98 % April Ochoa BILINGUAL MANAGER.OPTICAL TECHNICIAN Work Phone: [facility] 03-01-2025 18:19-0400 Systolic blood pressure 110 mm[Hg] April Ochoa BILINGUAL MANAGER.OPTICAL TECHNICIAN Work Phone: [facility] 06-12-2024 12:42-0500 Body mass index (BMI) [Ratio] 18.34 kg/m2 April Ochoa BILINGUAL MANAGER.OPTICAL TECHNICIAN Work Phone: [facility] 06-12-2024 12:42-0500 Body temperature 98.01 [degF] April Ochoa BILINGUAL MANAGER.OPTICAL TECHNICIAN Work Phone: [facility] 06-12-2024 12:42-0500 Body weight 50 kg April Ochoa BILINGUAL MANAGER.OPTICAL TECHNICIAN Work Phone: [facility] 06-12-2024 12:42-0500 Diastolic blood pressure 71 mm[Hg] April Ochoa BILINGUAL MANAGER.OPTICAL TECHNICIAN Work Phone: [facility] 06-12-2024 12:42-0500 Heart rate 79 /min April Ochoa BILINGUAL MANAGER.OPTICAL TECHNICIAN Work Phone: [facility] 06-12-2024 12:42-0500 Respiratory rate 18 /min April Ochoa BILINGUAL MANAGER.OPTICAL TECHNICIAN Work Phone: [facility] 06-12-2024 12:42-0500 SaO2% (BldA) [Mass fraction] 98 % April Ochoa BILINGUAL MANAGER.OPTICAL TECHNICIAN Work Phone: [facility] 06-12-2024 12:42-0500 Systolic blood pressure 134 mm[Hg] April Ochoa BILINGUAL MANAGER.OPTICAL TECHNICIAN Work Phone: [facility] 01-23-2022 13:40-0400 Body height 165.1 cm Kasandra Kim MD Work Phone: [facility] 01-23-2022 13:40-0400 Body temperature 97.5 [degF] Kasandra Kim MD Work Phone: [facility] 01-23-2022 13:40-0400 Body weight 55.34 kg Kasandra Kim MD Work Phone: [facility] 01-23-2022 13:40-0400 Diastolic blood pressure 82 mm[Hg] Kasandra Kim MD Work Phone: [facility] 01-23-2022 13:40-0400 Heart rate 84 /min Kasandra Kim MD Work Phone: [facility] 01-23-2022 13:40-0400 SaO2% (BldA) [Mass fraction] 99 % Kasandra Kim MD Work Phone: [facility] 01-23-2022 13:40-0400 Systolic blood pressure 145 mm[Hg] Kasandra Kim MD Work Phone: [facility] Encounters Encounter Date Encounter Type Care Provider Facility Start: 04-28-2025 ambulatory Grzegorz Lucas Facility:[facility] Start: 04-15-2025 End: 04-15-2025 Patient encounter procedure Gianfranco Payne DO Work Phone: [facility] Comment on above: Closed displaced fra cture of neck of fifth metacarpal bone of right hand with routine healing, subsequent encounter (Primary Dx) Start: 04-15-2025 End: 04-15-2025 Subsequent hospital visit by physician Xr [facility] [place] [facility] Work Phone: Radiology Comment on above: Closed displaced fra cture of neck of fifth metacarpal bone of right hand with routine healing, subsequent encounter [S62.336D] Start: 04-15-2025 End: 04-15-2025 ambulatory GRZEGORZ LUCAS Facility:[facility] Start: 04-05-2025 End: 04-05-2025 Orders Only Gianfranco Payne DO Work Phone: Orthopaedics Comment on above: Closed fracture of f ifth metacarpal bone of right hand, unspecified fracture morphology, initial encounter (Primary Dx); Closed displaced fracture of neck of fifth metacarpal bone of right hand with routine healing, subsequent encounter Start: 04-01-2025 End: 04-01-2025 Patient encounter procedure Gianfranco Payne DO Work Phone: [facility] Comment on above: Closed displaced fra cture of neck of fifth metacarpal bone of right hand with routine healing, subsequent encounter (Primary Dx) Start: 04-01-2025 End: 04-01-2025 ambulatory GRZEGORZ LUCAS Facility:[facility] Start: 03-31-2025 ambulatory GIANFRANCO PAYNE Facility:[facility] Start: 03-31-2025 End: 03-31-2025 Subsequent hospital visit by physician Xr [facility] Work Phone: Radiology Comment on above: Closed fracture of f ifth metacarpal bone of right hand, unspecified fracture morphology, initial encounter [S62.306A] Start: 03-30-2025 End: 03-30-2025 Orders Only Gianfranco Payne DO Work Phone: Orthopaedics Comment on above: Closed fracture of f ifth metacarpal bone of right hand, unspecified fracture morphology, initial encounter (Primary Dx) Start: 03-18-2025 End: 03-18-2025 Subsequent hospital visit by physician Xr [facility] [facility] Work Phone: Radiology Comment on above: Right hand pain [M79 .641] Start: 03-18-2025 End: 03-18-2025 Patient encounter procedure Gianfranco Payne DO Work Phone: [facility] Comment on above: Right hand pain (Bee pietro Dx); Unspecified fracture of fifth metacarpal bone, right hand, initial encounter for closed fracture Start: 03-18-2025 End: 03-18-2025 ambulatory GIANFRANCO PAYNE Facility:[facility] Start: 03-02-2025 End: 03-02-2025 Patient encounter procedure Gianfranco Payne DO Work Phone: [facility] Comment on above: Right hand pain; Sprain of metacarpophalangeal (MCP) joint of right little finger, initial encounter Start: 03-02-2025 End: 03-02-2025 ambulatory GIANFRANCO PAYNE Facility:[facility] Start: 03-01-2025 Unlisted evaluation and management service April Ochoa APRN.CNP Work Phone: [facility] Work Phone: Start: 03-01-2025 End: 03-01-2025 Subsequent hospital visit by physician Xr [facility] Work Phone: Radiology Comment on above: Right hand pain [M79 .641] Start: 03-01-2025 End: 03-01-2025 Patient encounter procedure April Ochoa APRN.OPTICAL TECHNICIAN Work Phone: [facility] Comment on above: Closed fracture of r ight hand, initial encounter (Primary Dx); Right hand pain; Unspecified fracture of fifth metacarpal bone, right hand, initial encounter for closed fracture; Long-term current use of benzodiazepine Start: 03-01-2025 End: 03-01-2025 ambulatory GRZEGORZ LUCAS Facility:[facility] Start: 11-12-2024 End: 11-12-[address] Grzegorz Lucas MD Work Phone: [facility] Work Phone: Start: 11-12-2024 End: 11-12-[address] Grzegorz Lucas MD -[facility] Start: 11-12-2024 End: 11-12-2024 ambulatory Grzegorz Lucas Facility:[facility] Start: 10-14-2024 End: 10-14-2024 ambulatory GRZEGORZ LUCAS Facility:[facility] Start: 06-13-2024 End: 06-13-2024 ambulatory Pietro Gomes RN NURSE FORGE OPERATOR HELPER Comment on above: Results Start: 06-13-2024 End: 06-13-2024 Telephone encounter Abram Lua APRN.OPTICAL TECHNICIAN Work Phone: [facility] Comment on above: Results (w) Start: 06-12-2024 End: 06-12-2024 ambulatory SATURNINO ZEPEDA Facility:[facility] Start: 06-12-2024 End: 06-12-2024 Patient encounter procedure April Ochoa APRN.OPTICAL TECHNICIAN Work Phone: [facility] Comment on above: URI, acute (Primary Dx) Start: 04-14-2023 End: 04-14-2023 ambulatory [facility] Work Phone: Start: 04-14-2023 End: 04-14-2023 Patient encounter procedure [facility] Work Phone: Start: 03-31-2023 End: 03-31-2023 ambulatory [facility] Work Phone: Start: 03-31-2023 End: 03-31-2023 Patient encounter procedure [facility] Start: 01-23-2022 End: 01-23-2022 Patient encounter procedure Kasandra Kim MD Work Phone: General Surgery Comment on above: Strain of abdominal muscle, initial encounter Start: 01-21-2022 Telephone encounter Faina Sandy APRN.OPTICAL TECHNICIAN Work Phone: [facility] Comment on above: Patient Update Procedures Date Procedure Procedure Detail Performing Clinician Start: 03-01-2025 Radex hand minimum 3 views April Ochoa APRN.OPTICAL TECHNICIAN Work Phone: Start: 04-14-2023 Screening mammography Start: 04-28-2019 Colonoscopy Faina Grossman APRN.OPTICAL TECHNICIAN Work Phone: Start: 09-26-2011 Mammography Faina Morse slerThanh AVITIA.OPTICAL TECHNICIAN Work Phone: Plan of Treatment Date Care Activity Detail Author Start: 12-02-2032 Urine microalbumin profile DTaP,Tdap,Td Vaccine (2 - Td or Tdap) [facility] Start: 04-15-2025 End: 04-15-2025 Patient encounter procedure 04/15/2025 3:30 PM EDT Office Visit [facility] [address], [place] [address] Gianfranco Payne V, DO [address], [place] [address] 2 week follow up right hand [facility] Comment on above: 2 week follow up rig ht hand Start: 04-04-2025 Influenza vaccination Influenza Vacc ine (#1) [facility] Start: 04-01-2025 End: 04-01-2025 Patient encounter procedure 04/01/2025 3:00 PM EDT Office Visit [facility] [address] [facility], [place] [address] Gianfranco Payne V, DO [address] [place], [place] [id number] 2 week follow up right hand [facility] Comment on above: 2 week follow up rig ht hand Start: 03-02-2025 End: 03-02-2025 Patient encounter procedure 03/02/2025 3:30 PM EDT Office Visit [facility] [address] [facility], [place] [id number] Gianfranco Payne V, DO [address] [facility], [place] [id number] Right hand pain [M79.641]; Closed fracture of right hand, initial encounter [S62.91XA] [facility] Comment on above: Right hand pain [M79 .641]; Closed fracture of right hand, initial encounter [S62.91XA] Start: 08-04-2024 Advance Directive Discussion Advance Directive Discussion [facility] Start: 2024 Advance Directive Discussion Advance Directive Discussion [facility] Start: 2024 Pneumococcal Vaccine : 65+ (1 of 1 - PCV) Pneumococcal Vaccine: 65+ (1 of 1 - PCV) [facility] Start: 2024 Screening for osteoporosis Bone Density Screening [facility] Start: 05-04-2024 Medicare Annual Well ness Visit Medicare Annual Wellness Visit [facility] Start: 04-04-2024 Covid-19 Vaccine ( season) Covid-19 Vaccine ( season) [facility] Start: 04-04-2024 Influenza vaccination Influenza Vacc ine (#1) [facility] Start: 04-15-2022 COVID-19 VACCINE (4 - Booster for Moderna series) COVID-19 VACCINE (4 - Booster for Moderna series) [facility] Start: 04-04-2022 Influenza vaccination INFLUENZ A (Season Ended) [facility] Start: 04-28-2020 Colonoscopy COLONOSCOPY [facility] Start: 04-28-2020 COLORECTAL CANCER SCREENING COLORECTAL CANCER SCREENING [facility] Start: 04-28-2020 Screening for malign ant neoplasm of colon [facility] Start: 2019 RSV Vaccine (1 - Ris k 60-74 years 1-dose series) RSV Vaccine (1 - Risk 60-74 years 1-dose series) [facility] Start: 06-16-2016 DIABETES SCREEN DIABETES SCREEN [facility] Start: 06-16-2016 Diabetes Screening Diabetes Screenin g [facility] Start: 09-26-2012 Mammography MAMMOGRAM [facility] Start: 09-26-2012 Screening for malign ant neoplasm of breast Mammogram Screening [facility] Start: 2009 Pneumococcal Vaccine : 50+ (1 of 1 - PCV) Pneumococcal Vaccine: 50+ (1 of 1 - PCV) [facility] Start: 2009 Screening for malign ant neoplasm of lung Lung Cancer Screening [facility] Start: 2009 SHINGRIX VACCINE (1 of 2) SHINGRIX VACCINE (1 of 2) [facility] Start: 2004 COLOGUARD (FIT-DNA) COLOGUARD (FIT-D NA) [facility] Start: [address] COLONOGRAPHY [facility] Start: 2004 FECAL OCCULT BLOOD FECAL OCCULT BLOO D [facility] Start: 2004 Lipid panel Lipid Screening [facility] Start: 2004 LIPID SCREEN LIPID SCREEN [facility] Start: 2004 Screening for malign ant neoplasm of colon [facility] Start: 2004 [facility] Start: 1989 HPV TESTING HPV TESTING [facility] Start: 1980 PAP TESTING PAP TESTING [facility] Start: 1978 Urine microalbumin profile DTAP,TDAP,TD (1 - Tdap) [facility] Start: 1977 Anxiety Screening Anxiety Screening [facility] Start: 1977 Depression Screening Depression Scre ening [facility] Start: 1971 Adult depression screening assessment DEPRESSION SCREENING [facility] COVID & INFLUENZA A/ B & RSV PCR, ROUTINE COVID & INFLUENZA A/B & RSV PCR, ROUTINE Microbiology Routine URI, acute Ordered: 06/12/2024 [facility] Work Phone: Comment on above: Ordered: 06/12/2024 End: 04-17-2026 XR Hand - right PA and Lateral and Oblique XR HAND GENERAL 3V PA/LAT/OBL RIGHT Radiology Routine Right hand pain 1 Occurrences starting 03/18/2025 until 04/17/2026 [facility] Work Phone: Comment on above: 1 Occurrences starti ng 03/18/2025 until 04/17/2026 XR Hand - right PA a nd Lateral and Oblique XR HAND GENERAL 3V PA/LAT/OBL RIGHT Radiology Routine Right hand pain 03/18/2025 2:50 PM EDT [facility] End: 04-29-2026 XR Hand - right PA and Lateral and Oblique XR HAND GENERAL 3V PA/LAT/OBL RIGHT Radiology Routine Closed fracture of fifth metacarpal bone of right hand, unspecified fracture morphology, initial encounter 1 Occurrences starting 03/30/2025 until 04/29/2026 [facility] Work Phone: Comment on above: 1 Occurrences starti ng 03/30/2025 until 04/29/2026 XR Hand - right PA a nd Lateral and Oblique XR HAND GENERAL 3V PA/LAT/OBL RIGHT Radiology Routine Closed fracture of fifth metacarpal bone of right hand, unspecified fracture morphology, initial encounter 03/31/2025 4:06 PM EDT [facility] Work Phone: End: 05-05-2026 XR Hand - right PA and Lateral and Oblique XR HAND GENERAL 3V PA/LAT/OBL RIGHT Radiology Routine Closed displaced fracture of neck of fifth metacarpal bone of right hand with routine healing, subsequent encounter 1 Occurrences starting 04/05/2025 until 05/05/2026 [facility] Work Phone: Comment on above: 1 Occurrences starti ng 04/05/2025 until 05/05/2026 XR Hand - right PA a nd Lateral and Oblique XR HAND GENERAL 3V PA/LAT/OBL RIGHT Radiology Routine Closed displaced fracture of neck of fifth metacarpal bone of right hand with routine healing, subsequent encounter 04/15/2025 3:14 PM EDT [facility] Work Phone: [facility] Immunizations Immunization Date Immunization Notes Care Provider Fa cili 08-25-2020 influenza virus vacc ine, unspecified formulation April Ochoa BILINGUAL MANAGER.OPTICAL TECHNICIAN Work Phone: [facility] Payers Date Payer Category Payer Self-pay [id number] 2024 Medicare [id number] 2024 Private Health Insurance [employer] [id number] 2024 Unknown [employer] [id number] 2024-Present [phone] [address] [place] [address] Indemnity [id number] 2024 Medicare [id number] 2024 Unknown [id number] 2016 Unknown [facility] [place] [id number] 2005 Unknown [facility] [id number] 2005-Present [phone] [place] [address] [facility] [id number] Private Health Insurance [place] [id number] Unknown [facility] [id number] Unknown ANTHEM [id number] Unknown [id number] Unknown [id number] Social History Date Type Detail Facility Start: 07-21-2013 End: 06-12-2024 Tobacco smoking status NHIS Ex-smoker [facility] Start: 06-10-1993 End: 06-10-2013 History of tobacco use Current smoker [facility] Start: 06-10-1993 End: 06-10-2013 History of tobacco use Cigarette Smoker [facility] Start: 07-21-2013 End: 03-02-2025 Cigarettes smoked current (pack per day) - Reported 1 [facility] Start: 07-21-2013 End: 06-12-2024 Tobacco use and exposure Smokeless tobacco non-user [facility] Start: 01-20-2022 End: 04-15-2025 Alcohol intake Current non-drinker of alcohol (finding) [facility] Start: 1960 Sex Assigned At Not on file [facility] Start: 01-10-2022 End: 01-23-2022 Exposure to SARS-CoV-2 (event) Not sure [facility] Start: 11-02-2021 Tobacco smoking stat [facility] Unknown if ever smoked [facility] Start: 06-10-2013 None [facility] Start: 06-14-2019 Non-smoker [facility] Start: 1960 Sex Assigned At Female W [facility] Start: 06-12-2024 End: 03-02-2025 Tobacco use panel [facility] Start: 07-05-2012 National Score (1-10 0), lower number is lower risk 52 [facility] Start: 11-17-2024 Sex Female (finding) [facility] Medical Equipment Procedure Code Equipment Code Equipment Original Text Equipment Identifier Dates [id number] Implant - [id number] Start: 06-15-2013 Comment on above: Description: Chelo Portillo amguard Staple Line Reinforcement Material Clinical Notes 01-21-2022 to 04-15-2025 Gianfranco Payne V, DO - 04/15/2025 3:50 PM EDTRaNicole pete, [place] - 04/15/2025 3:15 PM Shira Rodriguez RT(R) - 04/15/2025 3:00 PM EDTGianfranco Payne V, DO - 04/01/2025 3:22 PM EDT Note Date & Type Note Facility 04-15-2025 Note HNO ID: [id number] Author: GIANFRANCO PAYNE DO Service: ? 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 Like I'm having a harder, yeah, it's like this one doesn't let you. She denies significant pain, characterizing her symptoms [...] right hand with routine healing, subsequent encounter (X12.065U) Healing is progressing well with radiographic evidence [...] for return to regular activities. Recording using [employer] software for draft documentation of the visit was discussed with the patient/authorized traveling sales representative; all questions welcomed and answered. 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 Like I'm having a harder, yeah, it's like this one doesn't let you. She denies significant pain, characterizing her symptoms [...] Early bridging callus formation noted previously. Assessment & Plan 1. Closed displaced fracture of neck of fifth metacarpal bone of right hand with routine healing, subsequent encounter (N46.972W) Healing is progressing well with radiographic evidence [...] for return to regular activities. Recording using [employer] software for draft documentation of the visit was discussed with the patient/authorized traveling sales representative; all questions welcomed and answered. Patient/authorized traveling sales representative agreed to proceed AMB ROOMING INTAKE FLOWSHEET DATA documented in this encounter [facility] 04-15-2025 Note HNO ID: [id number] Author: NICOLE PARK MA Service: ? Author Type: Window Treatment Installer Type: Progress Notes Filed: 04/15/2025 15:50 Note Text: AMB ROOMING INTAKE FLOWSHEET DATA [facility] 04-15-2025 History of Present illness Narrative Radiology Service Progress Note PATIENT NAME: Elisabeth [...] PATIENT PRESENTS WITH AN IMPLANTABLE OR ATTACHED MARKETING ANALYTICS MANAGER: No RADIOLOGY DEPARTMENT: General X-ray: Exam(s) Completed: Upper Extremity X-Ray(s): Hand, right PERIPHERAL IV DATA: Not applicable SIGNED BY: RT Man(R) April 15, 2025 3:05 PM documented in this encounter [facility] 04-15-2025 Note HNO ID: [id number] Author: SHIRA MAC RT(R) Service: ? Author Type: Hot Air Furnace Installer Repairer Type: Progress Notes Filed: 04/15/2025 15:12 Note [...] PATIENT PRESENTS WITH AN IMPLANTABLE OR ATTACHED MARKETING ANALYTICS MANAGER: No RADIOLOGY DEPARTMENT: General X-ray: Exam(s) Completed: Upper Extremity X-Ray(s): Hand, right PERIPHERAL IV DATA: Not applicable SIGNED BY: RT Man(R) April 15, 2025 3:05 PM [facility] 04-01-2025 Note HNO ID: [id number] Author: GIANFRANCO PAYNE, Service: ? Author Type: [...] right hand with routine healing, subsequent encounter (F25.579T) Patient is 4.5 weeks post-injury, with substantial [...] 2 weeks with repeat X-ray. Recording using [employer] software for draft documentation of the visit was discussed with the patient/authorized traveling sales representative; all questions welcomed and answered. Patient/authorized traveling sales representative agreed to proceed [facility] 04-01-2025 History of Present illness Narrative Subjective Elisabeth Hays is a 64-year-old female [...] Right Hand: Distal fifth metacarpal fracture. Assessment & Plan 1. Closed displaced fracture of neck of fifth metacarpal bone of right hand with routine healing, subsequent encounter (O07.384P) Patient is 4.5 weeks post-injury, with substantial [...] 2 weeks with repeat X-ray. Recording using [employer] software for draft documentation of the visit was discussed with the patient/authorized traveling sales representative; all questions welcomed and answered. Patient/authorized traveling sales representative agreed to proceed documented in this encounter [facility] 03-31-2025 History of Present illness Narrative Radiology Service Progress Note PATIENT NAME: Elisabeth [...] PATIENT PRESENTS WITH AN IMPLANTABLE OR ATTACHED MARKETING ANALYTICS MANAGER: No RADIOLOGY DEPARTMENT: General X-ray: Exam(s) Completed: Upper Extremity X-Ray(s): Hand, right PERIPHERAL IV DATA: Not applicable SIGNED BY: RT Mat(R) March 31, 2025 4:07 PM documented in this encounter [facility] 03-31-2025 Note HNO ID: [id number] Author: JEANETTE WILSON RT(Abby) Service: ? Author Type: Technologist Type: Progress [...] PATIENT PRESENTS WITH AN IMPLANTABLE OR ATTACHED MARKETING ANALYTICS MANAGER: No RADIOLOGY DEPARTMENT: General X-ray: Exam(s) Completed: Upper Extremity X-Ray(s): Hand, right PERIPHERAL IV DATA: Not applicable SIGNED BY: RT Mat(R) March 31, 2025 4:07 PM [facility] 03-18-2025 Note HNO ID: [id number] Author: NICOLE PARK MA Service: ? Author Type: Window Treatment Installer Type: Progress Notes Filed: 03/18/2025 15:29 Note Text: PT ASSESSMENT - CASTING ROOM Elisabeth presents for Application of brace. Applied small Boxer's fracture brace to Right hand. Patient electronically signed Pablo SCHOFIELD. Patient has been instructed in Care and proper application of brace. Nicole Park MA [facility] 03-18-2025 History of Present illness Narrative PT ASSESSMENT - CASTING ROOM Elisabeth presents for Application of brace. Applied small Boxer's fracture brace to Right hand. Patient electronically signed Pablo SCHOFIELD. Patient has been instructed in Care and proper application of brace. Nicole Park MA AMB ROOMING INTAKE FLOWSHEET DATA Pain Pain Level: 6 Pain Location: Hand-Right Description: Stabbing, Aching, Other: See comment, Sore (swollen) Duration Amount of Time: (ongoing) Frequency: Intermittent Intervention/Comfort measure: Splinting documented in this encounter [facility] 03-18-2025 History of Present illness Narrative Radiology Service Progress Note PATIENT NAME: Elisabeth [...] PATIENT PRESENTS WITH AN IMPLANTABLE OR ATTACHED MARKETING ANALYTICS MANAGER: No RADIOLOGY DEPARTMENT: General X-ray: Exam(s) Completed: Upper Extremity X-Ray(s): Hand, right PERIPHERAL IV DATA: Not applicable SIGNED BY: RT Graciela(R) March 18, 2025 2:50 PM documented in this encounter [facility] 03-18-2025 Note HNO ID: [id number] Author: TEJAS DOZIER RT(Abby) Service: ? Author Type: Technologist Type: Progress [...] PATIENT PRESENTS WITH AN IMPLANTABLE OR ATTACHED MARKETING ANALYTICS MANAGER: No RADIOLOGY DEPARTMENT: General X-ray: Exam(s) Completed: Upper Extremity X-Ray(s): Hand, right PERIPHERAL IV DATA: Not applicable SIGNED BY: RT Graciela(R) March 18, 2025 2:50 PM [facility] 03-18-2025 Note HNO ID: [id number] Author: NICOLE PARK MA Service: ? Author Type: Window Treatment Installer Type: Progress Notes Filed: 03/18/2025 15:12 Note Text: AMB ROOMING INTAKE FLOWSHEET DATA Pain Pain Level: 6 Pain Location: Hand-Right Description: Stabbing, Aching, Other: See comment, Sore (swollen) Duration Amount of Time: (ongoing) Frequency: Intermittent Intervention/Comfort measure: Splinting [facility] 03-02-2025 Note HNO ID: [id number] Author: GIANFRANCO PAYNE DO Service: ? Author [...] due to swelling. 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 Recording using [employer] software for draft documentation of the visit was discussed with the patient/authorized traveling sales representative; all questions welcomed and answered. Patient/authorized traveling sales representative agreed to proceed [facility] 03-02-2025 History of Present illness Narrative Subjective The patient is a 64-year-old female [...] due to swelling. 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 Right hand pain (M79.641) 2. Sprain of metacarpophalangeal (MCP) joint of right little finger, initial encounter (E17.136Y) - Acute injury sustained during boxing yesterday [...] on March 07 without restrictions. Recording using [employer] software for draft documentation of the visit was discussed with the patient/authorized traveling sales representative; all questions welcomed and answered. Patient/authorized traveling sales representative agreed to proceed AMB ROOMING INTAKE FLOWSHEET DATA Pain Pain Level: 8 Pain Location: Hand-Right Description: Aching Duration Amount of Time: 1 Duration Units: Days Frequency: Continuous Intervention/Comfort measure: Medication, Splinting documented in this encounter [facility] 03-02-2025 Note HNO ID: [id number] Author: NICOLE PARK MA Service: ? Author Type: Window Treatment Installer Type: Progress Notes Filed: 03/02/2025 13:16 Note Text: AMB ROOMING INTAKE FLOWSHEET DATA Pain Pain Level: 8 Pain Location: Hand-Right Description: Aching Duration Amount of Time: 1 Duration Units: Days Frequency: Continuous Intervention/Comfort measure: Medication, Splinting [facility] 03-01-2025 Note HNO ID: [id number] Author: APRIL OCHOA APRN.CNP Service: ? Author Type: Nurse Practitioner Type: Progress Notes Filed: 03/01/2025 19:23 Note Text: [facility] Mariusz Hays is a 64 year old female. Patient presents with: right hand pain: X 1 day-playing with grandson RAVEN Right Hand Pain: - Injury occurred around 11:00-11:30 today while playing with her 14-year-old grandson. - Describes the incident as zigged and he zagged, resulting in the injury. - Denies punching [...] General: No focal deficit present. Mental Status: (more content not included)... [facility] 03-01-2025 History of Present illness Narrative Associated Order(s): Fracture and Fracture Dislocation Post-Procedure Diagnose(s): Right hand pain; Closed fracture of right hand, initial encounter; Unspecified fracture of fifth metacarpal bone, right hand, initial encounter for closed fracture [facility] Vee Elisabeth Hays is a 64 year old female. Patient presents with: right hand pain: X 1 day-playing with zechariah CARBAJAL Right Hand Pain: - Injury occurred around 11:00-11:30 today while playing with her 14-year-old grandson. - Describes the incident as zigged and he zagged, resulting in the injury. - Denies punching anything during the incident. - Right-handed. - Able to make a fist. - Denies neck or back pain. Anxiety: - Managed with Prozac and Xanax PRN. Hyperlipidemia: - Taking atorvastatin. GERD: - Taking Prevacid. PAST MEDICAL HISTORY Diagnosis Date High cholesterol [...] Take 30 mg by mouth once daily. traMADol (ULTRAM) 50 mg tablet Take 1 tablet by mouth every 8 hours as needed for pain for up to 3 days. for pain. buPROPion XL (WELLBUTRIN XL) 300 mg 24 [...] 06/10/1993 Quit date: 06/10/2013 Years since quittin.7 Smokeless tobacco: Never Substance Use Topics Alcohol use: No Drug use: No Review of Systems Musculoskeletal: (-) neck pain, (-) back pain Objective BP 110/76 Pulse 70 Temp 36.5 C (97.7 F) (Tympanic) Resp 18 Wt 52.1 kg (114 lb 13.8 oz) SpO2 98% BMI 19.11 kg/m Physical Exam Vitals and nursing note reviewed. [...] take concurrenly with benzo and Recording using [employer] software for draft documentation of the visit was discussed with the patient/authorized traveling sales representative; all questions welcomed and answered. Patient/authorized traveling sales representative agreed to proceed MDM Fracture and Fracture Dislocation Date/Time: 03/01/2025 7:00 PM Performed by: April Ochoa APRN.HEBER Authorized by: April Ochoa APRN.CNP Informed Consent Consent Obtained: Verbal Ridge Protocol A moment to CARE was completed. [...] communication to the patient or surrogate applicable. documented in this encounter [facility] 03-01-2025 Instructions April Ochoa APRN.CNP - 03/01/2025 7:07 PM EDT FRACTURES GENERAL INFORMATION: A fracture is a [...] wet, it can be dried with a fine hairer. 4. Do not put pressure on any [...] or discharge coming from under the cast. documented in this encounter [facility] 03-01-2025 History of Present illness Narrative Radiology Service Progress Note PATIENT NAME: Elisabeth [...] PATIENT PRESENTS WITH AN IMPLANTABLE OR ATTACHED MARKETING ANALYTICS MANAGER: No RADIOLOGY DEPARTMENT: General X-ray: Exam(s) Completed: Upper Extremity X-Ray(s): Hand, right PERIPHERAL IV DATA: Not applicable SIGNED BY: VJ Farr) March 01, 2025 6:26 PM documented in this encounter [facility] 03-01-2025 Note HNO ID: [id number] Author: SIL CHURCH RT(R) Service: ? Author Type: Technologist [...] PATIENT PRESENTS WITH AN IMPLANTABLE OR ATTACHED MARKETING ANALYTICS MANAGER: No RADIOLOGY DEPARTMENT: General X-ray: Exam(s) Completed: Upper Extremity X-Ray(s): Hand, right PERIPHERAL IV DATA: Not applicable SIGNED BY: Sil Church, RT(R) March 01, 2025 6:26 PM [facility] 10-14-2024 Note HNO ID: [id number] Author: ABRAM LUA APRN.[facility] Service: ? Author Type: Nurse Practitioner Type: Progress Notes Filed: 10/14/2024 08:33 Note Text: [facility] Subjective Elisabeth Hays is a [...] history is provided by the patient. No foreign language teacher was used. Review of Systems Constitutional: Negative. [...] prn. - DOXYCYCLINE HYCLATE 100 MG TABLET Abram Lua APRN.OPTICAL TECHNICIAN MDM Procedures [facility] 06-13-2024 Telephone encounter Note Patient notified by FRANDY. Aashish Blackwell MA [facility] 06-13-2024 Miscellaneous Notes Patient notified by FRANDY. Aashish Blackwell MA Left message for pt to call back. Zeina Bajwa MA Negative for flu, covid and rsv documented in this encounter [facility] 06-13-2024 Telephone encounter Note Patient calling with return call/Message from office: Message from office reviewed - see Telephone encounter dated 06/13/24: Negative for flu, covid and rsv Patient verbalized understanding of message given. Patient denies any new or worsening symptoms of which a provider is not aware:Yes. GO TO THE EMERGENCY ROOM OR CALL 911 IF: * You develop any new symptoms * Your condition worsens * You are concerned or anxious about your condition for any other reason. If you have any questions, you can call Nurse agricultural extension educator back. [facility] 06-13-2024 Miscellaneous Notes Patient calling with return call/Message from office: Message from office reviewed - see Telephone encounter dated 06/13/24: Negative for flu, covid and rsv Patient verbalized understanding of message given. Patient denies any new or worsening symptoms of which a provider is not aware:Yes. GO TO THE EMERGENCY ROOM OR CALL 911 IF: * You develop any new symptoms * Your condition worsens * You are concerned or anxious about your condition for any other reason. If you have any questions, you can call Nurse agricultural extension educator back. documented in this encounter [facility] 06-13-2024 Telephone encounter Note Left message for pt to call back. Zeina Bajwa MA [facility] 06-13-2024 Telephone encounter Note Negative for flu, covid and rsv [facility] 06-12-2024 Note HNO ID: [id number] Author: ABRAM LUA APRN.HEBER Service: ? Author Type: Nurse Practitioner Type: [...] symptoms occur. Patient agreeable to treatment plan. Abram Lua APRN.[facility] 06-12-2024 History of Present illness Narrative CC: Patient presents with: Cough: Congestion, bodyaches, [...] EXAM: BP 134/71 Pulse 79 Temp 36.7 C (98 F) Resp 18 Wt 50 kg (110 lb 3.7 oz) SpO2 98% BMI 18.34 kg/m General appearance: alert, cooperative, pleasant, in no [...] - ICD9: 465.9, ICD10: J06.9 - COVID & INFLUENZA A/B & RSV PCR, ROUTINE - AZITHROMYCIN 250 MG TABLET - safety net prescribed if symptoms persist No xray available today. Prescription instructions reviewed with patient as applicable. Potential red flag symptoms discussed with the patient. Reviewed appropriate action plan to take if red flag symptoms occur. Patient agreeable to treatment plan. Abram Lua APRN.OPTICAL TECHNICIAN documented in this encounter [facility] 01-23-2022 History of Present illness Narrative Elisabeth Hays 1960 REFERRING PHYSICIAN: Faina Sandy A* CHIEF COMPLAINT: Consult (Right Upper Quadrant Abdominal pain) HPI: The patient is a 61 year old female presents with right sided abdominal pain She points to right lateral to umbilical area. She states that she noted this Friday when lifting a heavy object at work. She states that heavy lifting increases the pain. She states that stretching her arm out in abduction also worsens pain. Pain is less at rest. She denies constipation or diarrhea. She denies changes in bowel habits. She denies nausea/emesis. She denies fevers. PAST MEDICAL HISTORY Diagnosis Date High cholesterol PAST SURGICAL HISTORY Procedure Laterality Date COLONOSCOPY SCREENING 2019 TUBE THORACOSTOMY INCLUDES WATER SEAL 06/09/2013 post procedure air leak Current Outpatient Medications Medication Sig nicotine 7 mg/24 hr Apply 1 Patch as directed once daily. ibuprofen 400 mg tablet Take 1 tablet by mouth every 6 hours. nicotine -- REMOVE patch 7 Each once daily. nicotine - verify patch 7 Each every 8 hours. (Patient not taking: Reported on 01/20/2022 ) lansoprazole (PREVACID) 30 mg capsule Take 30 mg by mouth once daily. nicotine (NICODERM CQ) 14 mg/24 hr Apply 1 Patch as directed every 24 hours. ALLERGIES: Bactrim [Sulfamethoxazole-Trimethoprim], Morphine, Benadryl [Diphenhydramine Hcl], and Sulfa (Sulfonamide Antibiotics) PERSONAL HISTORY: Social History Tobacco Use Smoking status: Former Smoker Packs/day: 1.00 Years: 20.00 Pack years: 20.00 Types: Cigarettes Quit date: 06/10/2013 Years since quittin.6 Smokeless tobacco: Never Used Substance Use Topics Alcohol use: No Drug use: No FAMILY HISTORY Problem Relation Age of Onset other (rheumatoid Arthritis) Mother Heart Attack Father The review of systems data was entered by the nurse and reviewed by dc Nursing Notes: Rita Valdes 01/23/2022 1:47 PM Signed REVIEW OF SYSTEMS: General: The patient denies fatigue, denies weight loss, denies weight gain, denies feeling hot, and denies feelings of cold. Eyes: The patient denies glaucoma, denies eye injury/surgery, wears glasses or contacts. Ear/Nose/Throat: The patient denies allergies, denies hayfever, denies ear infections, and denies bloody noses. Cardiovascular: The patient denies chest pain, denies heart disease, denies high blood pressure,denies cardiac stent, denies prior heart attack, denies irregular heart beat, denies high cholesterol, denies poor circulation, denies heart failure, other cardiac issues, denies claudication, denies cold feet, denies peripheral arterial stent. Respiratory: The patient denies tuberculosis, denies pneumonia, denies frequent cough, denies pulmonary embolism, denies shortness of breath, and denies coughing up blood. Gastrointestinal: The patient denies difficulty swallowing, NOTES acid reflux, denies ulcers, denies vomiting, denies jaundice/hepatitis, denies gallbladder problems, denies black or tarry stools, denies hemorrhoids, denies bleeding from rectum, denies diverticulitis, denies constipation, denies diarrhea, denies loss of stool control, and denies hernias. Kidney/Bladder: The patient NOTES kidney stones, denies urine infections, and denies bloody urine. Skin: The patient NOTES a history of skin cancer, denies bleeding/changing moles, and denies a history of skin rash. Neurologic: The patient denies a history of epilepsy/convulsions, denies headaches, denies head/spinal injuries, and denies stroke/TIA. Psychiatric: The patient denies psychiatric medications, denies depression, and denies voices, denies substance abuse. Endocrine: The patient denies thyroid disorders, denies diabetes, and denies hormonal problems. Hematologic: The patient denies a history of bruising, denies bleeding, and denies anemia, denies blood clots. Infections: The patient NOTES a history of measles and mumps, denies rheumatic fever, and denies sexually transmitted diseases. Musculoskeletal: The patient denies back pain/injury, denies back problems, denies sciatica,NOTES Neck Surgery denies knee/foot trouble, denies arthritis, or denies gout. When was patient's last Mammogram screening? Unknown Last Colonoscopy: 2018 Rita Valdes PHYSICAL EXAMINATION: General: The patient is 61 year old female, well nourished, well hydrated in no acute distress. The patient is oriented to time, place, and person. VITALS: Blood pressure 145/82, pulse 84, temperature 36.4 C (97.5 F), height 165.1 cm (5' 5), weight 55.3 kg (122 lb), SpO2 99 %. Body mass index is 20.3 kg/m . Head: Normal cephalic, atraumatic Eyes: pupils are equally round, sclera are clear/anicteric Neck is supple with no tracheal deviation Respiratory: Normal respiratory excursion and pattern. Abdominal exam: soft and benign, pain is exacerbated by contraction of right rectus abdominis muscle and this reproduces patient's pain Extremities: no clubbing, cyanosis or edema. Neuro: non focal Psych: normal mood Assessment IMPRESSION: abdominal wall muscle strain PLAN: I have discussed the above with the patient. I have explained to patient that she has abdominal wall muscle strain. This may take weeks to resolve. Recommend use of NSAIDs and heating pads/ice packs. I have no surgical options to offer her. Patient to return to her PCP for medical care The patient acknowledges above. I have answered all questions to the patient s satisfaction and the patient has no further questions. I have confirmed and edited as necessary, the PFSH and ROS obtained by others. Consultation requested by Faina Sandy for an opinion regarding patient's complaint of abdominal wall pain My final recommendations will be communicated back to the requesting physician by way of shared Medical record or letter to requesting physician via [place] mail. . Diagnoses: (S39.011A) Strain of abdominal muscle, initial encounter Return to Clinic: The patient is to follow up in clinic if any worsening signs/symptoms. Medical Decision Making: Problems: Low: Acute, uncomplicated illness or injury Risk: Moderate: Drug management Medical Decision Making Level: 3 - Low Kasandra Kim MD documented in this encounter [facility] 01-23-2022 Nurse Note REVIEW OF SYSTEMS: General: The patient denies fatigue, denies weight loss, denies weight gain, denies feeling hot, and denies feelings of cold. Eyes: The patient denies glaucoma, denies eye injury/surgery, wears glasses or contacts. Ear/Nose/Throat: The patient denies allergies, denies hayfever, denies ear infections, and denies bloody noses. Cardiovascular: The patient denies chest pain, denies heart disease, denies high blood pressure,denies cardiac stent, denies prior heart attack, denies irregular heart beat, denies high cholesterol, denies poor circulation, denies heart failure, other cardiac issues, denies claudication, denies cold feet, denies peripheral arterial stent. Respiratory: The patient denies tuberculosis, denies pneumonia, denies frequent cough, denies pulmonary embolism, denies shortness of breath, and denies coughing up blood. Gastrointestinal: The patient denies difficulty swallowing, NOTES acid reflux, denies ulcers, denies vomiting, denies jaundice/hepatitis, denies gallbladder problems, denies black or tarry stools, denies hemorrhoids, denies bleeding from rectum, denies diverticulitis, denies constipation, denies diarrhea, denies loss of stool control, and denies hernias. Kidney/Bladder: The patient NOTES kidney stones, denies urine infections, and denies bloody urine. Skin: The patient NOTES a history of skin cancer, denies bleeding/changing moles, and denies a history of skin rash. Neurologic: The patient denies a history of epilepsy/convulsions, denies headaches, denies head/spinal injuries, and denies stroke/TIA. Psychiatric: The patient denies psychiatric medications, denies depression, and denies voices, denies substance abuse. Endocrine: The patient denies thyroid disorders, denies diabetes, and denies hormonal problems. Hematologic: The patient denies a history of bruising, denies bleeding, and denies anemia, denies blood clots. Infections: The patient NOTES a history of measles and mumps, denies rheumatic fever, and denies sexually transmitted diseases. Musculoskeletal: The patient denies back pain/injury, denies back problems, denies sciatica,NOTES Neck Surgery denies knee/foot trouble, denies arthritis, or denies gout. When was patient's last Mammogram screening? Unknown Last Colonoscopy: 2018 Rita Valdes documented in this encounter [facility] 01-21-2022 Miscellaneous Notes I called to check on patient. She states her pain is unchanged, no worse but not better. I advised her to make an appointment with her PCP or general surgery for evaluation. Faina Sandy APRN.CNP documented in this encounter [facility] Evaluation note Diagnosis Strain of abdominal muscle, initial encounter documented in this encounter [facility] noteNo assessment information availableWLake County [facility] Work Phone: Evaluation note* Diagnosis URI, acute- Primary Acute upper respiratory infections of unspecified site documented in this encounter [facility] note* Diagnosis Closed fracture of right hand, initial encounter- Primary Right hand pain Pain in limb Unspecified fracture of fifth metacarpal bone, right hand, initial encounter for closed fracture Long-term current use of benzodiazepine Right hand pain Pain in limb documented in this encounter [facility] note* Diagnosis Right hand pain Pain in limb documented in this encounter [facility] note* Diagnosis Right hand pain Pain in limb Sprain of metacarpophalangeal (MCP) joint of right little finger, initial encounter documented in this encounter [facility] note* Diagnosis Right hand pain- Primary Pain in limb Unspecified fracture of fifth metacarpal bone, right hand, initial encounter for closed fracture documented in this encounter [facility] note* Diagnosis Right hand pain Pain in limb documented in this encounter [facility] note* Diagnosis Closed fracture of fifth metacarpal bone of right hand, unspecified fracture morphology, initial encounter- Primary documented in this encounter [facility] note* Diagnosis Closed fracture of fifth metacarpal bone of right hand, unspecified fracture morphology, initial encounter documented in this encounter [facility] note* Diagnosis Closed displaced fracture of neck of fifth metacarpal bone of right hand with routine healing, subsequent encounter- Primary documented in this encounter [facility] note* Diagnosis Closed fracture of fifth metacarpal bone of right hand, unspecified fracture morphology, initial encounter- Primary Closed displaced fracture of neck of fifth metacarpal bone of right hand with routine healing, subsequent encounter documented in this encounter [facility] note* Diagnosis Closed displaced fracture of neck of fifth metacarpal bone of right hand with routine healing, subsequent encounter- Primary documented in this encounter [facility] note* Diagnosis Closed displaced fracture of neck of fifth metacarpal bone of right hand with routine healing, subsequent encounter [facility] (narrative)No reason for referral information availableWLake County [facility] Work Phone: Reason for visit Narrative* Diagnostic Procedure Only (Urgent) - Closed Specialty Diagnoses / Procedures Referred By Contac t Referred To Contact XR IMAGING Diagnoses Right hand pain Procedures XR HAND GENERAL 3V PA/LAT/OBL RIGHT RADEX HAND MINIMUM 3 VIEWS April Ochoa, SADI.OPTICAL TECHNICIAN [address] [place] [address] Phone: tel: fax: [place] [id number] Referral ID Status Reason Start Date Expiration Date V isits Requested Visits Authorized [id number] Closed Auto-Generate d Referral 03/01/2025 03/31/2026 1 1 [facility] for visit Narrative* Diagnostic Procedure Only (Routine) - Closed Specialty Diagnoses / Procedures Referred By Contac t Referred To Contact XR IMAGING Diagnoses Right hand pain Procedures XR HAND GENERAL 3V PA/LAT/OBL RIGHT RADEX HAND MINIMUM 3 VIEWS Gianfranco Payne V, DO [address] [place] [address] Phone: tel: fax: [place] [address] Referral ID Status Reason Start Date Expiration Date V isits Requested Visits Authorized [id number] Closed Auto-Generate d Referral 03/18/2025 04/17/2026 1 1 [facility] for visit Narrative* Diagnostic Procedure Only (Routine) - Closed Specialty Diagnoses / Procedures Referred By Contac t Referred To Contact XR IMAGING Diagnoses Closed fracture of fifth metacarpal bone of right hand, unspecified fracture morphology, initial encounter Procedures XR HAND GENERAL 3V PA/LAT/OBL RIGHT RADEX HAND MINIMUM 3 VIEWS Gianfranco Payne V, DO [address] [place] [address] Phone: tel: fax: [place] [address] Referral ID Status Reason Start Date Expiration Date V isits Requested Visits Authorized [id number] Closed Auto-Generate d Referral 03/30/2025 04/29/2026 1 1 [facility] for visit Narrative* Diagnostic Procedure Only (Routine) - Closed Specialty Diagnoses / Procedures Referred By Contac t Referred To Contact XR IMAGING Diagnoses Closed displaced fracture of neck of fifth metacarpal bone of right hand with routine healing, subsequent encounter Procedures XR HAND GENERAL 3V PA/LAT/OBL RIGHT RADEX HAND MINIMUM 3 VIEWS Gianfranco Payne V, DO [address] [facility] [place] [address] Phone: tel: fax: [place] [address] Referral ID Status Reason Start Date Expiration Date V isits Requested Visits Authorized [id number] Closed Auto-Generate d Referral 04/05/2025 05/05/2026 1 1 [facility] Family History No Family History Records Found Relationship Condition Age at Onset Recorded Date/T jennifre father Cardiac disease Unknown mother Hypertension Unknown Arthritis Unknown Advance Directives No Advanced Directives Records Found Advance Directive Response Recorded Date/ Time Advance Directives No June 10, 2013 12:35am Living Will No March 20 9:53am Power of Procurement Professional No March 20 9:53am Advance Directive Response Recorded Date/ Time Advance Directives No June 10, 2013 12:35am Chief Complaint and Reason for Visit Chief Complaint SCREENING Summary Purpose Additional Source Comments Source Comments (unrecognize d section and content) In the event this informatio n is protected by the Federal Confidentiality of Alcohol and Drug Abuse Patient Records regulations: The Federal rules restrict any use of the information to criminally investigate or prosecute any alcohol or drug abuse patient.[facility] Center[facility] the event this information is protected by the Federal Confidentiality of Alcohol and Drug Abuse Patient Records regulations: The Federal rules restrict any use of the information to criminally investigate or prosecute any alcohol or drug abuse patient.[facility] CenterIn the event this information is protected by the Federal Confidentiality of Alcohol and Drug Abuse Patient Records regulations: The Federal rules restrict any use of the information to criminally investigate or prosecute any alcohol or drug abuse patient.[facility] CenterIn the event this information is protected by the Federal Confidentiality of Alcohol and Drug Abuse Patient Records regulations: The Federal rules restrict any use of the information to criminally investigate or prosecute any alcohol or drug abuse patient.[facility] Center[facility] the event this information is protected by the Federal Confidentiality of Alcohol and Drug Abuse Patient Records regulations: The Federal rules restrict any use of the information to criminally investigate or prosecute any alcohol or drug abuse patient.[facility] CenterIn the event this information is protected by the Federal Confidentiality of Alcohol and Drug Abuse Patient Records regulations: The Federal rules restrict any use of the information to criminally investigate or prosecute any alcohol or drug abuse patient.[facility] Center[facility] the event this information is protected by the Federal Confidentiality of Alcohol and Drug Abuse Patient Records regulations: The Federal rules restrict any use of the information to criminally investigate or prosecute any alcohol or drug abuse patient.[facility] CenterIn the event this information is protected by the Federal Confidentiality of Alcohol and Drug Abuse Patient Records regulations: The Federal rules restrict any use of the information to criminally investigate or prosecute any alcohol or drug abuse patient.[facility] CenterIn the event this information is protected by the Federal Confidentiality of Alcohol and Drug Abuse Patient Records regulations: The Federal rules restrict any use of the information to criminally investigate or prosecute any alcohol or drug abuse patient.[facility] CenterIn the event this information is protected by the Federal Confidentiality of Alcohol and Drug Abuse Patient Records regulations: The Federal rules restrict any use of the information to criminally investigate or prosecute any alcohol or drug abuse patient.[facility] CenterIn the event this information is protected by the Federal Confidentiality of Alcohol and Drug Abuse Patient Records regulations: The Federal rules restrict any use of the information to criminally investigate or prosecute any alcohol or drug abuse patient.[facility] CenterIn the event this information is protected by the Federal Confidentiality of Alcohol and Drug Abuse Patient Records regulations: The Federal rules restrict any use of the information to criminally investigate or prosecute any alcohol or drug abuse patient.[facility] CenterIn the event this information is protected by the Federal Confidentiality of Alcohol and Drug Abuse Patient Records regulations: The Federal rules restrict any use of the information to criminally investigate or prosecute any alcohol or drug abuse patient.[facility] CenterIn the event this information is protected by the Federal Confidentiality of Alcohol and Drug Abuse Patient Records regulations: The Federal rules restrict any use of the information to criminally investigate or prosecute any alcohol or drug abuse patient.[facility] CenterIn the event this information is protected by the Federal Confidentiality of Alcohol and Drug Abuse Patient Records regulations: The Federal rules restrict any use of the information to criminally investigate or prosecute any alcohol or drug abuse patient.[facility] CenterIn the event this information is protected by the Federal Confidentiality of Alcohol and Drug Abuse Patient Records regulations: The Federal rules restrict any use of the information to criminally investigate or prosecute any alcohol or drug abuse patient.[facility] Reason for Visit (unrecogniz ed section and content) Reason Comments Patient Update Reason Comments Consult Right Upper Quadrant Abdominal pain Specialty Diagnoses / Procedures Referred By Contac t Referred To Contact General Surgery Diagnoses Right upper quadrant abdominal pain Procedures CONSULT TO GENERAL SURGERY OFFICE/OUTPATIENT [facility] 60-74 MINUTES Faina Sandy, SADI.OPTICAL TECHNICIAN [address] [place] [address] Referral ID Status Reason Start Date Expiration Date Visits Requested Visits Authorized [id number] Pending Review PCP Requested Referral 01/20/2022 01/20/2023 1 1 Reason Comments Cough Congestion, bodyache s, chills x2 days Reason Comments Results Reason Comments Results w Reason Comments right hand pain X 1 day-playing with grandson Reason Comments Right hand pain Specialty Diagnoses / Procedures Referred By Contac t Referred To Contact Orthopedics Diagnoses Right hand pain Closed fracture of right hand, initial encounter Procedures CONSULT PANEL TO ORTHOPAEDICS OFFICE/OUTPATIENT [facility] 60 MINUTES April Ochoa, SADI.OPTICAL TECHNICIAN [address] [place] [address] Phone: tel: fax: Referral ID Status Reason Start Date Expiration Date V isits Requested Visits Authorized [id number] Closed PCP Requested Referral 03/01/2025 03/01/2026 1 1 Reason Comments Right hand follow up Reason Comments right 5th [facility] Care Teams (unrecognized sec tion and content) Design Intern Relationship Specialty Start Date End Date Saturnino Zepeda [address] [phone] PCP - General 06/12/13 Design Intern Relationship Specialty Start Date End Date Paulino Zepedarey Cecily [address] [phone] PCP - General 06/12/13 Team Status: Active Member Role Status Dates Dr. Grzegorz Lucas MD Family Provider Active Dr. Grzegorz Lucas MD Primary Care Provider Active Team Status: Inactive Member Role Status Dates Dr. Grzegorz Lucas MD Primary Care Provider, Attending Provider Active Team Status: Inactive Member Role Status Dates Dr. Grzegorz Lucas MD Primary Care Provi mulu, Attending Provider, Referring Provider Active Design Intern Relationship Specialty Start Date End Date Saturnino Zepeda [address] [phone] PCP - General 06/12/13 Design Intern Relationship Specialty Start Date End Date Saturnino Zepeda [address] [phone] PCP - General 06/12/13 Team Status: Inactive Member Role Status Dates Dr. Grzegorz Lucas MD Primary Care Provider Active Start: November 12, 2024 End: November 12, 2024 Dr. Grzegorz Lucas MD Attending Provider Active Start: November 12, 2024 End: November 12, 2024 Dr. Grzegorz Lucas MD Referring Provider Active Start: November 12, 2024 End: November 12, 2024 Design Intern Relationship Specialty Start Date End Date Grzegorz Lucas MD [address] [place] [address] PCP - General Family Medicine 10/14/24 Design Intern Relationship Specialty Start Date End Date Grzegorz Lucas MD [address] [place] [address] PCP - General Family Medicine 10/14/24 Design Intern Relationship Specialty Start Date End Date Grzegorz Lucas MD [address] [place] [address] PCP - General Family Medicine 10/14/24 Design Intern Relationship Specialty Start Date End Date Grzegorz Lucas MD [address] [place] [address] PCP - General Family Medicine 10/14/24 Design Intern Relationship Specialty Start Date End Date Grzegorz Lucas MD [address] [place] [address] PCP - General Family Medicine 10/14/24 Design Intern Relationship Specialty Start Date End Date Grzegorz Lucas MD [address] [place] [address] PCP - General Family Medicine 10/14/24 Design Intern Relationship Specialty Start Date End Date Grzegorz Lucas MD [address] [place] [address] PCP - General Family Medicine 10/14/24 Design Intern Relationship Specialty Start Date End Date Grzegorz Lucas MD [address] [facility] [address] [place] [address] PCP - General Family Medicine 10/14/24 Goals (unrecognized section and content) Goals may be documented in a n alternate sectionGoals may be documented in an alternate sectionGoals may be documented in an alternate section INFORMATION SOURCE (unrecogn ized section and content) DATE CREATED AUTHOR 04/24/2025 [facility] DATE CREATED AUTHOR AUTHOR'S ORGANIZ ATION 04/27/2025 [facility] FOR RECORDS PERTAINING TO PATIENTS WHO ARE OR HAVE BEEN ENROLLED IN A CHEMICAL DEPENDENCY/SUBSTANCEABUSE PROGRAM, SOME INFORMATION MAY BE OMITTED. This clinical summary was aggregated from multiple sources. Caution should be exercised in using it in the provision of clinical care. This summary normalizes information from multiple sources, and as a consequence, information in this document may materially change the coding, format and clinical context of patient data. In addition, data may be omitted in some cases. CLINICAL DECISIONS SHOULD BE BASED ON THE PRIMARY CLINICAL RECORDS. [employer] [facility]. provides no warranty or guarantee of the accuracy or completeness of information in this document.
== END | disposition home or self-care (01) ==
LOC: OPBI 12:15
PROVIDERS: PCP Family Medicine; Referring Provider Family Medicine; Visit Provider Family Medicine
DX: Z12.31 Encounter for screening mammogram for malignant neoplasm of breast (principal)
CPT/HCPCS: 77063; 77067

== ENCOUNTER → 2025-05-02 | Outpatient (CLI) | payer MEDICARE, OTHER, SELFPAY ==
--- OUTSIDE RECORDS SUMMARY | 2025-04-15 14:54 | XMS RPT_ITS ---
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 Name Role Phone BILL LUCAS Primary Care Unavailable MALIKA, GIANFRANCO Referring Unavailable SHAYY, BILL Mora Primary Care Unavailable MALIKA, GIANFRANCO Referring Unavailable MALIKA, GIANFRANCO Attending Unavailable LUCAS, BILL Mora Primary Care Unavailable MALIKA, GIANFRANCO Referring Unavailable MALIKA, GIANFRANCO Attending Unavailable MALIKA, GIANFRANCO Referring Unavailable LUCAS, BILL Mora Primary Care Unavailable MALIKA, GIANFRANCO Referring Unavailable LUCAS, BILL Mora Primary Care Unavailable MALIKA, GIANFRANCO Attending Unavailable SHAYY, BILL Mora Primary Care Unavailable MALIKA, GIANFRANCO Attending Unavailable SHAYY, BILL Mora Primary Care Unavailable DON, WILLOW Referring Unavailable DON, WILLOW Referring Unavailable SHAYY, BILL Mora Primary Care Unavailable SHAYY, BILL Mora Primary Care Unavailable DON, WILLOW Attending Unavailable SHAYY, BILL Mora Primary Care Unavailable AGATHA KANG Primary Care Unavailable PROBLEMS DATE TYPE CONDITION / CODE ATTENDING STATUS [facility] 04/15/2025 Active Closed displaced fracture of neck of fifth metacarpal bone of right hand with routine healing, subsequent encounter / S62.336D(ICD-10) NA Active [facility] 03/31/2025 Active Closed fracture of fifth metacarpal bone of right hand, unspecified fracture morphology, initial encounter / S62.306A(ICD-10) NA Active [facility] 03/18/2025 Active Right hand pain / M79.641(ICD-10) NA Active [facility] 03/18/2025 Active Unspecified frac ture of fifth metacarpal bone, right hand, initial encounter for closed fracture / S62.306A(ICD-10) GIANFRANCO PAYNE Active [facility] 03/02/2025 Active Sprain of metacarpophalangeal (MCP) joint of right little finger, initial encounter / S63.656A(ICD-10) GIANFRANCO PAYNE Active [facility] 03/01/2025 Active Closed fracture of right hand, initial encounter / S62.91XA(ICD-10) WILLOW OCHOA Active [facility] 03/01/2025 Active Long-term curren t use of benzodiazepine / Z79.899(ICD-10) WILLOW OCHOA Active [facility] PROCEDURES No Procedure Records Found RESULTS PROGRESS Observed: 04/15/2025 3:50 PM Status: COMPLETED Source: [facility] HNO ID: [id number] Author: GIANFRANCO PAYNE, DO Service: ? Author Type: Physician Type: Progress Notes Filed: 04/15/2025 15:50 Note Text: Subjective Elisabeth Hays is a 64-year-old female presenting for follow-up of a hand fracture. Elisabeth reports improvement in discomfort since the initial injury. She has been intermittently removing the splint, particularly at night while watching TV, and engages in gentle movements to alleviate stiffness, which she identifies as the primary issue. 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 Like I'm having a harder, yeah, it's like this one doesn't let you." She denies significant pain, characterizing her symptoms as stiffness rather than discomfort. Musculoskeletal: (+) hand stiffness, (+) hand swelling, (-) hand pain Objective There were no vitals taken for this visit. General: No acute distress. MSK/Ext: Mild stiffness with finger extension, no pain with rotation, fracture site visible, able to place hand flat and curl fist without pain. Imaging: - (Today) Hand X-ray: Solid bridging callus at the fracture site, stable alignment, mild angular deformity not expected to affect hand function. - Hand X-ray: Early bridging callus formation noted previously. Assessment AND Plan 1. Closed displaced fracture of neck of fifth metacarpal bone of right hand with routine healing, subsequent encounter (S62.336D) Healing is progressing well with radiographic evidence of a solid bridging callus and maintained alignment. Patient reports improvement in discomfort, with residual stiffness noted. - Splint use no longer required; may use for protection as needed. - Cleared to resume normal functional activities and lifting; advised to proceed gradually and avoid overexertion. - Provided education on expected stiffness following immobilization and the importance of gradual mobilization. - Provided release note for return to regular activities. Recording using Livevol software for draft documentation of the visit was discussed with the patient/authorized client relations representative; all questions welcomed and answered. Patient/authorized client relations representative agreed to proceed CNOV Observed: 04/15/2025 3:30 PM Status: COMPLETED Source: [facility] SAÚLELISABETH Pisano ([id number]) 1960 F Date Time Provider Department 04/15/25 3:30 PM GIANFRANCO PAYNE V [facility] During your visit today, we recorded the following information about you: Nicole Park MA 04/15/2025 3:50 PM Signed AMB ROOMING INTAKE FLOWSHEET DATA Gianfranco Payne V, DO 04/15/2025 3:50 PM Signed Subjective Elisabeth Tony Saúl is a 64-year-old female presenting for follow-up of a hand fracture. Elisabeth reports improvement in discomfort since the initial injury. She has been intermittently removing the splint, particularly at night while watching TV, and engages in gentle movements to alleviate stiffness, which she identifies as the primary issue. 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 Like I'm having a harder, yeah, it's like this one doesn't let you." She denies significant pain, characterizing her symptoms as stiffness rather than discomfort. Musculoskeletal: (+) hand stiffness, (+) hand swelling, (-) hand pain Objective There were no vitals taken for this visit. General: No acute distress. MSK/Ext: Mild stiffness with finger extension, no pain with rotation, fracture site visible, able to place hand flat and curl fist without pain. Imaging: - (Today) Hand X-ray: Solid bridging callus at the fracture site, stable alignment, mild angular deformity not expected to affect hand function. - Hand X-ray: Early bridging callus formation noted previously. Assessment AND Plan 1. Closed displaced fracture of neck of fifth metacarpal bone of right hand with routine healing, subsequent encounter (Y44.842D) Healing is progressing well with radiographic evidence of a solid bridging callus and maintained alignment. Patient reports improvement in discomfort, with residual stiffness noted. - Splint use no longer required; may use for protection as needed. - Cleared to resume normal functional activities and lifting; advised to proceed gradually and avoid overexertion. - Provided education on expected stiffness following immobilization and the importance of gradual mobilization. - Provided release note for return to regular activities. Recording using Livevol software for draft documentation of the visit was discussed with the patient/authorized client relations representative; all questions welcomed and answered. Patient/authorized client relations representative agreed to proceed Referring Provider: GIANFRANCO PAYNE V [[id number]] Allergies As of Date: 04/15/2025 Noted Allergy Reaction BACTRIM (SULFAMETHOXAZOLE-TRIMETH*06/11/2013 2 - Rash MORPHINE 06/14/2013 9 - Itching BENADRYL (DIPHENHYDRAMINE HCL) 06/11/2013 14 - Other: See Comments Comments: tachycardia SULFA (SULFONAMIDE ANTIBIOTICS) 06/11/2013 2 - Rash Date Reviewed: 04/15/2025 Reviewed by: Nicole Park MA - Fully Assessed Reason for Visit: right 5th mc fx [Other] Primary Visit Diagnosis:Closed displaced fracture of neck of fifth metacarpal bone of right hand with routine healing, subsequent encounter [M91.785W] Prescriptions as of 04/15/2025 - ZOLMitriptan (ZOMIG) 5 mg tablet TAKE 1 TABLET BY MOUTH AT ONSET OF HEADACHE - ALPRAZolam (XANAX) 0.5 mg tablet Take 0.5 mg by mouth daily at bedtime. - buPROPion XL (WELLBUTRIN XL) 300 mg 24 hr tablet Take 1 tablet by mouth every afternoon. - FLUoxetine HCl 20 mg tablet Take 3 tablets by mouth every afternoon. - rosuvastatin (CRESTOR) 5 mg tablet Take 5 mg by mouth once daily. - nicotine 7 mg/24 hr Apply 1 Patch as directed once daily. - ibuprofen 400 mg tablet Take 1 tablet by mouth every 6 hours. - nicotine -- REMOVE patch 7 Each once daily. - nicotine - verify patch 7 Each every 8 hours. - lansoprazole (PREVACID) 30 mg capsule Take 30 mg by mouth once daily. - nicotine (NICODERM CQ) 14 mg/24 hr Apply 1 Patch as directed every 24 hours. Problem List As Of Date 04/15/2025 Noted Resolved Ureter, calculus [N20.1] 11/07/2011 Pneumothorax, right [J93.9] 06/11/2013 DVT prophylaxis [IHJ1363] 06/11/2013 DISPOSITION AND FOLLOW-UP [V999.01] 06/11/2013 Smoking addiction [F17.200] 06/11/2013 Acute pain [R52] 06/16/2013 Pneumonia [J18.9] 06/16/2013 Infection due to yeast [B37.9] 06/16/2013 Encounter Status:Closed by GIANFRANCO PAYNE V on 04/15/25 PROGRESS Observed: 04/15/2025 3:15 PM Status: COMPLETED Source: [facility] HNO ID: [id number] Author: NICOLE PARK MA Service: ? Author Type: Commissary Officer Type: Progress Notes Filed: 04/15/2025 15:50 Note Text: AMB ROOMING INTAKE FLOWSHEET DATA XR HAND 3V PA/LAT/OBL RT Observed: 04/15 3:14 PM Status: F Source: [facility] * * *Final Report* * * DATE OF EXAM: Apr 15 2025 3:14PM [id number] [id number] - XR HAND 3V PA/LAT/OBL RT / PROCEDURE REASON: Closed displaced fracture of neck of fifth metacarpal bone of right hand with ro * * * * Physician Interpretation * * * * EXAMINATION / TECHNIQUE: XR HAND 3V PA/LAT/OBL RT HISTORY: Follow up after closed displaced fracture of neck of fifth metacarpal bone of right hand Closed displaced fracture of neck of fifth metacarpal bone of right hand with routine healing, subsequent encounter . COMPARISON: 03/31/2025 RESULT: Scattered degenerative changes of the interphalangeal joints. Mildly angulated fracture of the fifth metacarpal neck with callus formation, unchanged in configuration. No new fracture or dislocation. Radiocarpal joint space narrowing. IMPRESSION: Mildly angulated healing fifth metacarpal fracture with unchanged configuration of the fracture fragments. Casing Machine Operator: DONYA Transcribe Date/Time: Apr 24 2025 9:56A Dictated by : REYES VELASQUEZ MD This examination was interpreted and the report reviewed and electronically signed by: REYES VELASQUEZ MD on Apr 24 2025 9:58AM EST [id number] PROGRESS Observed: 04/15/2025 3:00 PM Status: COMPLETED Source: [facility] HNO ID: [id number] Author: SHIRA GARY RT(R) Service: ? Author Type: Diving Coach Type: Progress Notes Filed: 04/15/2025 15:12 Note Text: Radiology Service Progress Note PATIENT NAME: Elisabeth Hays DATE OF SERVICE: April 15, 2025 TIME: 3:05 PM PATIENT IDENTITY VERIFICATION COMPLETED USING TWO (2) IDENTIFIERS: Name and Date of confirmed by patient verbally. FALL SCREENING: Has the patient had 2 falls in the last year or 1 fall with injury or currently using an Ambulatory Assistive Device (Walker, Cane, Wheelchair, Crutches, etc.)? No PATIENT GENDER DATA: Assigned female at . status: : No status: NO. PATIENT RELEVANT IMPLANT DATA REVIEWED: Yes PATIENT PRESENTS WITH AN IMPLANTABLE OR ATTACHED IMAGING MANAGER: No RADIOLOGY DEPARTMENT: General X-ray: Exam(s) Completed: Upper Extremity X-Ray(s): Hand, right PERIPHERAL IV DATA: Not applicable SIGNED BY: RT Man(R) April 15, 2025 3:05 PM CNCO Observed: 04/15/2025 12:00 AM Status: COMPLETED Source: [facility] Letter Text PROGRESS Observed: 04/01/2025 3:22 PM Status: COMPLETED Source: [facility] HNO ID: [id number] Author: GIANFRANCO PAYNE, Service: ? Author Type: Physician Type: Progress Notes Filed: 04/01/2025 15:23 Note Text: Subjective Elisabeth Hays is a 64-year-old female presenting for follow-up of a right fifth metacarpal fracture. Elisabeth is 4.5 weeks post-fracture of the right fifth metacarpal and has been wearing an Exos Fracture Splint consistently, except during showers. She reports significant improvement in pain but still experiences discomfort with certain wrist movements. She notes that the splint feels loose, allowing excessive movement. She denies paresthesia, erythema, or rashes under the splint. Musculoskeletal: (+) right hand pain Neurological: (-) numbness, (-) tingling Skin: (-) redness, (-) rash Objective There were no vitals taken for this visit. General: No acute distress. MSK/Ext: Minimal swelling of right hand; minimal tenderness over fracture site of distal fifth metacarpal; no substantial rotational deformity of finger. Neuro: No focal sensory deficits. Imaging: - (Yesterday) X-ray Right Hand: Increased callus formation at the distal fifth metacarpal fracture site with no change in position or alignment. - (2 weeks ago) X-ray Right Hand: Distal fifth metacarpal fracture. Assessment AND Plan 1. Closed displaced fracture of neck of fifth metacarpal bone of right hand with routine healing, subsequent encounter (D79.173I) Patient is 4.5 weeks post-injury, with substantial improvement in pain. X-ray from yesterday compared to 2 weeks ago shows increased callus formation at the fracture site with no change in position or alignment. Minimal swelling and tenderness on exam; no rotational deformity or sensory deficits. - Heat and remold Exos Fracture Splint to improve fit. - Continue wearing Exos Fracture Splint for activity over the next 2 weeks. - Recheck in 2 weeks with repeat X-ray. Recording using Livevol software for draft documentation of the visit was discussed with the patient/authorized client relations representative; all questions welcomed and answered. Patient/authorized client relations representative agreed to proceed CNOV Observed: 04/01/2025 3:00 PM Status: COMPLETED Source: [facility] Office Visit ([facility]) ELISABETH HAYS ([id number]) 1960 F Date Time Provider Department 04/01/25 3:00 PM GIANFRANCO PAYNE V [facility] During your visit today, we recorded the following information about you: Gianfranco Payne V, DO 04/01/2025 3:23 PM Signed Subjective Elisabeth Hays is a 64-year-old female presenting for follow-up of a right fifth metacarpal fracture. Elisabeth is 4.5 weeks post-fracture of the right fifth metacarpal and has been wearing an Exos Fracture Splint consistently, except during showers. She reports significant improvement in pain but still experiences discomfort with certain wrist movements. She notes that the splint feels loose, allowing excessive movement. She denies paresthesia, erythema, or rashes under the splint. Musculoskeletal: (+) right hand pain Neurological: (-) numbness, (-) tingling Skin: (-) redness, (-) rash Objective There were no vitals taken for this visit. General: No acute distress. MSK/Ext: Minimal swelling of right hand; minimal tenderness over fracture site of distal fifth metacarpal; no substantial rotational deformity of finger. Neuro: No focal sensory deficits. Imaging: - (Yesterday) X-ray Right Hand: Increased callus formation at the distal fifth metacarpal fracture site with no change in position or alignment. - (2 weeks ago) X-ray Right Hand: Distal fifth metacarpal fracture. Assessment AND Plan 1. Closed displaced fracture of neck of fifth metacarpal bone of right hand with routine healing, subsequent encounter (W97.701D) Patient is 4.5 weeks post-injury, with substantial improvement in pain. X-ray from yesterday compared to 2 weeks ago shows increased callus formation at the fracture site with no change in position or alignment. Minimal swelling and tenderness on exam; no rotational deformity or sensory deficits. - Heat and remold Exos Fracture Splint to improve fit. - Continue wearing Exos Fracture Splint for activity over the next 2 weeks. - Recheck in 2 weeks with repeat X-ray. Recording using Livevol software for draft documentation of the visit was discussed with the patient/authorized client relations representative; all questions welcomed and answered. Patient/authorized client relations representative agreed to proceed Referring Provider: GIANFRANCO PAYNE V [[id number]] Allergies As of Date: 04/01/2025 Noted Allergy Reaction BACTRIM (SULFAMETHOXAZOLE-TRIMETH*06/11/2013 2 - Rash MORPHINE 06/14/2013 9 - Itching BENADRYL (DIPHENHYDRAMINE HCL) 06/11/2013 14 - Other: See Comments Comments: tachycardia SULFA (SULFONAMIDE ANTIBIOTICS) 06/11/2013 2 - Rash Date Reviewed: 03/18/2025 Reviewed by: Nicole Park MA - Fully Assessed Primary Visit Diagnosis:Closed displaced fracture of neck of fifth metacarpal bone of right hand with routine healing, subsequent encounter [S62.336D] Prescriptions as of 04/01/2025 - ZOLMitriptan (ZOMIG) 5 mg tablet TAKE 1 TABLET BY MOUTH AT ONSET OF HEADACHE - ALPRAZolam (XANAX) 0.5 mg tablet Take 0.5 mg by mouth daily at bedtime. - buPROPion XL (WELLBUTRIN XL) 300 mg 24 hr tablet Take 1 tablet by mouth every afternoon. - FLUoxetine HCl 20 mg tablet Take 3 tablets by mouth every afternoon. - rosuvastatin (CRESTOR) 5 mg tablet Take 5 mg by mouth once daily. - nicotine 7 mg/24 hr Apply 1 Patch as directed once daily. - ibuprofen 400 mg tablet Take 1 tablet by mouth every 6 hours. - nicotine -- REMOVE patch 7 Each once daily. - nicotine - verify patch 7 Each every 8 hours. - lansoprazole (PREVACID) 30 mg capsule Take 30 mg by mouth once daily. - nicotine (NICODERM CQ) 14 mg/24 hr Apply 1 Patch as directed every 24 hours. Problem List As Of Date 04/01/2025 Noted Resolved Ureter, calculus [N20.1] 11/07/2011 Pneumothorax, right [J93.9] 06/11/2013 DVT prophylaxis [[id number]] 06/11/2013 DISPOSITION AND FOLLOW-UP [V999.01] 06/11/2013 Smoking addiction [F17.200] 06/11/2013 Acute pain [R52] 06/16/2013 Pneumonia [J18.9] 06/16/2013 Infection due to yeast [B37.9] 06/16/2013 Encounter Status:Closed by GIANFRANCO PAYNE V on 04/01/25 CNCO Observed: 04/01/2025 12:00 AM Status: COMPLETED Source: [facility] Letter Text XR HAND 3V PA/LAT/OBL RT Observed: 03/31 4:06 PM Status: F Source: [facility] * * *Final Report* * * DATE OF EXAM: Mar 31 2025 4:06PM [id number] - XR HAND 3V PA/LAT/OBL RT / PROCEDURE REASON: Closed fracture of fifth metacarpal bone of right hand, unspecified fracture mor * * * * Physician Interpretation * * * * EXAMINATION / TECHNIQUE: XR HAND 3V PA/LAT/OBL RT HISTORY: PT STATES FOLLOW UP RIGHT HAND FX Closed fracture of fifth metacarpal bone of right hand, unspecified fracture morphology, initial encounter COMPARISON: 03/18/2025. FINDINGS: There is a healing fifth metacarpal fracture with unchanged alignment. No new acute bony abnormality is identified. IMPRESSION: Healing fifth metacarpal fracture with unchanged alignment. Casing Machine Operator: PSCB Transcribe Date/Time: Apr 07 2025 6:31P Dictated by : PENG MANZANO MD This examination was interpreted and the report reviewed and electronically signed by: PENG MANZANO MD on Apr 07 2025 6:31PM EST [id number] PROGRESS Observed: 03/31/2025 4:00 PM Status: COMPLETED Source: [facility] ID: [id number] Author: KATHIA JOYNER RT(R) Service: ? Author Type: Technologist Type: Progress Notes Filed: 03/31/2025 16:07 Note Text: Radiology Service Progress Note PATIENT NAME: Elisabeth Hays DATE OF SERVICE: March 31, 2025 TIME: 4:07 PM PATIENT IDENTITY VERIFICATION COMPLETED USING TWO (2) IDENTIFIERS: Name and Date of confirmed by patient verbally. FALL SCREENING: Has the patient had 2 falls in the last year or 1 fall with injury or currently using an Ambulatory Assistive Device (Walker, Cane, Wheelchair, Crutches, etc.)? No PATIENT GENDER DATA: Assigned female at . status: : No status: NO. PATIENT RELEVANT IMPLANT DATA REVIEWED: Not Applicable PATIENT PRESENTS WITH AN IMPLANTABLE OR ATTACHED IMAGING MANAGER: No RADIOLOGY DEPARTMENT: General X-ray: Exam(s) Completed: Upper Extremity X-Ray(s): Hand, right PERIPHERAL IV DATA: Not applicable SIGNED BY: RT Mat(R) March 31, 2025 4:07 PM PROGRESS Observed: 03/18/2025 3:28 PM Status: COMPLETED [id number] Author: NICOLE PARK MA Service: ? Author Type: Commissary Officer Type: Progress Notes Filed: 03/18/2025 15:29 Note Text: PT ASSESSMENT - CASTING ROOM Elisabeth presents for Application of brace. Applied small Boxer's fracture brace to Right hand. Patient electronically signed Pablo SCHOFIELD. Patient has been instructed in Care and proper application of brace. Nicole Park MA PROGRESS Observed: 03/18/2025 3:00 PM Status: COMPLETED Source: [facility] HNO ID: [id number] Author: TEJAS BLACKWELL RT(R) Service: ? Author Type: Technologist Type: Progress Notes Filed: 03/18/2025 14:51 Note Text: Radiology Service Progress Note PATIENT NAME: Elisabeth Hays DATE OF SERVICE: March 18, 2025 TIME: 2:50 PM PATIENT IDENTITY VERIFICATION COMPLETED USING TWO (2) IDENTIFIERS: Name and Date of confirmed by patient verbally. FALL SCREENING: Has the patient had 2 falls in the last year or 1 fall with injury or currently using an Ambulatory Assistive Device (Walker, Cane, Wheelchair, Crutches, etc.)? No PATIENT GENDER DATA: Assigned female at . status: : No status: NO. PATIENT RELEVANT IMPLANT DATA REVIEWED: Not Applicable PATIENT PRESENTS WITH AN IMPLANTABLE OR ATTACHED IMAGING MANAGER: No RADIOLOGY DEPARTMENT: General X-ray: Exam(s) Completed: Upper Extremity X-Ray(s): Hand, right PERIPHERAL IV DATA: Not applicable SIGNED BY: RT Graciela(R) March 18, 2025 2:50 PM XR HAND 3V PA/LAT/OBL RT Observed: 03/18 2:50 PM Status: F Source: [facility] * * *Final Report* * * DATE OF EXAM: Mar 18 2025 2:50PM [id number] - XR HAND 3V PA/LAT/OBL RT / PROCEDURE REASON: Right hand pain * * * * Physician Interpretation * * * * EXAMINATION / TECHNIQUE: XR HAND 3V PA/LAT/OBL RT HISTORY: Pt. states boxing injury from 2.5 weeks ago. Pain Rt 5th metacarpal area. Right hand pain . COMPARISON: 03/01/2025 RESULT: New mildly displaced fracture involving the distal metadiaphysis of the fifth metacarpal. No dislocations are seen. Scattered degenerative changes of the interphalangeal joints. Some radiocarpal joint space narrowing. No erosive changes are identified. IMPRESSION: Mildly displaced fracture of the distal fifth metacarpal. COMMUNICATION: Communicated with GIANFRANCO PAYNE on 03/27/2025 12:35 PM via [email or web address] staff message by imaging services Navigator. Casing Machine Operator: PSCB Transcribe Date/Time: Mar 27 2025 12:33P Dictated by : REYES VELASQUEZ MD This examination was interpreted and the report reviewed and electronically signed by: REYES VELASQUEZ MD on Mar 27 2025 12:36PM EST [id number] CNOV Observed: 03/18/2025 2:30 PM Status: COMPLETED Source: [facility] Office Visit ([facility]) ELISABETH HAYS ([id number]) 1960 F Date Time Provider Department 03/18/25 2:30 PM GIANFRANCO PAYNE V [facility] During your visit today, we recorded the following information about you: Nicole Park MA 03/18/2025 3:12 PM Signed AMB ROOMING INTAKE FLOWSHEET DATA Pain Pain Level: 6 Pain Location: Hand-Right Description: Stabbing, Aching, Other: See comment, Sore (swollen) Duration Amount of Time: (ongoing) Frequency: Intermittent Intervention/Comfort measure: Splinting Nicole Park MA 03/18/2025 3:29 PM Signed PT ASSESSMENT - CASTING ROOM Elisabeth presents for Application of brace. Applied small Boxer's fracture brace to Right hand. Patient electronically signed Pablo SCHOFIELD. Patient has been instructed in Care and proper application of brace. Nicole Park MA Allergies As of Date: 03/18/2025 Noted Allergy Reaction BACTRIM (SULFAMETHOXAZOLE-TRIMETH*06/11/2013 2 - Rash MORPHINE 06/14/2013 9 - Itching BENADRYL (DIPHENHYDRAMINE HCL) 06/11/2013 14 - Other: See Comments Comments: tachycardia SULFA (SULFONAMIDE ANTIBIOTICS) 06/11/2013 2 - Rash Date Reviewed: 03/18/2025 Reviewed by: Nicole Park MA - Fully Assessed Reason for Visit: Right hand follow up [Other] Primary Visit Diagnosis:Right hand pain [M79.641] Other Visit Diagnosis:Unspecified fracture of fifth metacarpal bone, right hand, initial encounter for closed fracture [S62.306A] Order(s):XR HAND GENERAL 3V PA/LAT/OBL RIGHT [[id number]] Order #: [id number] FUTURE Prescriptions as of 03/18/2025 - ZOLMitriptan (ZOMIG) 5 mg tablet TAKE 1 TABLET BY MOUTH AT ONSET OF HEADACHE - ALPRAZolam (XANAX) 0.5 mg tablet Take 0.5 mg by mouth daily at bedtime. - buPROPion XL (WELLBUTRIN XL) 300 mg 24 hr tablet Take 1 tablet by mouth every afternoon. - FLUoxetine HCl 20 mg tablet Take 3 tablets by mouth every afternoon. - rosuvastatin (CRESTOR) 5 mg tablet Take 5 mg by mouth once daily. - nicotine 7 mg/24 hr Apply 1 Patch as directed once daily. - ibuprofen 400 mg tablet Take 1 tablet by mouth every 6 hours. - nicotine -- REMOVE patch 7 Each once daily. - nicotine - verify patch 7 Each every 8 hours. - lansoprazole (PREVACID) 30 mg capsule Take 30 mg by mouth once daily. - nicotine (NICODERM CQ) 14 mg/24 hr Apply 1 Patch as directed every 24 hours. Problem List As Of Date 03/18/2025 Noted Resolved Ureter, calculus [N20.1] 11/07/2011 Pneumothorax, right [J93.9] 06/11/2013 DVT prophylaxis [IQR9099] 06/11/2013 DISPOSITION AND FOLLOW-UP [V999.01] 06/11/2013 Smoking addiction [F17.200] 06/11/2013 Acute pain [R52] 06/16/2013 Pneumonia [J18.9] 06/16/2013 Infection due to yeast [B37.9] 06/16/2013 Encounter Status:Closed by GIANFRANCO PAYNE V on 03/18/25 PROGRESS Observed: 03/18/2025 2:29 PM Status: COMPLETED Source: [facility] HNO ID: [id number] Author: NICOLE PARK MA Service: ? Author Type: Commissary Officer Type: Progress Notes Filed: 03/18/2025 15:12 Note Text: AMB ROOMING INTAKE FLOWSHEET DATA Pain Pain Level: 6 Pain Location: Hand-Right Description: Stabbing, Aching, Other: See comment, Sore (swollen) Duration Amount of Time: (ongoing) Frequency: Intermittent Intervention/Comfort measure: Splinting CNCO Observed: 03/18/2025 12:00 AM Status: COMPLETED Source: [facility] Letter Text PROGRESS Observed: 03/02/2025 1:16 PM Status: COMPLETED Source: [facility] HNO ID: [id number] Author: GIANFRANCO PAYNE DO Service: ? Author Type: Physician Type: Progress Notes Filed: 03/02/2025 13:16 Note Text: Subjective The patient is a 64-year-old female presenting for follow-up after a hand injury sustained during boxing. Hand Injury: - Injury occurred yesterday around 11:00 while boxing. - Jammed hand, resulting in bruising and soreness. - Pain localized to the knuckle and finger, described as throbbing. - Able to move the finger slightly; no numbness reported. - Noted increased tightness in the cast last night due to swelling. 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 Musculoskeletal: (+) right knuckle pain, (+) right finger pain, (+) decreased right finger range of motion, (-) distal hand pain Skin: (+) right hand bruising Neurological: (-) hand numbness Objective There were no vitals taken for this visit. General: No acute distress. MSK/Ext: Swelling and bruising around the knuckle joint and along the length of the fingers; limited finger movement. Imaging: - Hand X-ray: No fracture identified; appearance consistent with a nutrient vessel Assessment AND Plan 1. Right hand pain (M79.641) 2. Sprain of metacarpophalangeal (MCP) joint of right little finger, initial encounter (X78.944T) - Acute injury sustained during boxing yesterday at 11:00 AM; pain localized to right little finger MCP joint with associated swelling and bruising. - Reviewed X-ray with radiologist; no fracture identified, findings consistent with nutrient vessel. - Alumnum gutter splint with RICHARD wrap applied; may remove for washing and range of motion as comfortable. - Provided education on expected recovery time, use of splint for comfort and protection, and encouraged gentle use of the hand to promote healing. - Work note provided; may return to work on March 07 without restrictions. Recording using Livevol software for draft documentation of the visit was discussed with the patient/authorized client relations representative; all questions welcomed and answered. Patient/authorized client relations representative agreed to proceed CNOV Observed: 03/02/2025 1:00 PM Status: COMPLETED Source: [facility] ELISABETH HAYS ([id number]) 1960 F Date Time Provider Department 03/02/25 1:00 PM GIANFRANCO PAYNE V [facility] During your visit today, we recorded the following information about you: Nicole Park MA 03/02/2025 1:16 PM Signed AMB ROOMING INTAKE FLOWSHEET DATA Pain Pain Level: 8 Pain Location: Hand-Right Description: Aching Duration Amount of Time: 1 Duration Units: Days Frequency: Continuous Intervention/Comfort measure: Medication, Splinting Gianfranco Payne V, DO 03/02/2025 1:16 PM Signed Subjective The patient is a 64-year-old female presenting for follow-up after a hand injury sustained during boxing. Hand Injury: - Injury occurred yesterday around 11:00 while boxing. - Jammed hand, resulting in bruising and soreness. - Pain localized to the knuckle and finger, described as throbbing. - Able to move the finger slightly; no numbness reported. - Noted increased tightness in the cast last night due to swelling. 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 Musculoskeletal: (+) right knuckle pain, (+) right finger pain, (+) decreased right finger range of motion, (-) distal hand pain Skin: (+) right hand bruising Neurological: (-) hand numbness Objective There were no vitals taken for this visit. General: No acute distress. MSK/Ext: Swelling and bruising around the knuckle joint and along the length of the fingers; limited finger movement. Imaging: - Hand X-ray: No fracture identified; appearance consistent with a nutrient vessel Assessment AND Plan 1. Right hand pain (M79.641) 2. Sprain of metacarpophalangeal (MCP) joint of right little finger, initial encounter (E94.384L) - Acute injury sustained during boxing yesterday at 11:00 AM; pain localized to right little finger MCP joint with associated swelling and bruising. - Reviewed X-ray with radiologist; no fracture identified, findings consistent with nutrient vessel. - Alumnum gutter splint with RICHARD wrap applied; may remove for washing and range of motion as comfortable. - Provided education on expected recovery time, use of splint for comfort and protection, and encouraged gentle use of the hand to promote healing. - Work note provided; may return to work on March 07 without restrictions. Recording using Livevol software for draft documentation of the visit was discussed with the patient/authorized client relations representative; all questions welcomed and answered. Patient/authorized client relations representative agreed to proceed Referring Provider: WILLOW OCHOA [[id number]] Allergies As of Date: 03/02/2025 Noted Allergy Reaction BACTRIM (SULFAMETHOXAZOLE-TRIMETH*06/11/2013 2 - Rash MORPHINE 06/14/2013 9 - Itching BENADRYL (DIPHENHYDRAMINE HCL) 06/11/2013 14 - Other: See Comments Comments: tachycardia SULFA (SULFONAMIDE ANTIBIOTICS) 06/11/2013 2 - Rash Date Reviewed: 03/02/2025 Reviewed by: Nicole Park MA - Fully Assessed Reason for Visit: Right hand pain [Other] Visit Diagnoses:Right hand pain [M79.641] Sprain of metacarpophalangeal (MCP) joint of right little finger, initial encounter [B24.604S] Order(s):CONSULT PANEL TO ORTHOPAEDICS [[id number]] Order #: [id number]: 1 Prescriptions as of 03/02/2025 - traMADol (ULTRAM) 50 mg tablet Take 1 tablet by mouth every 8 hours as needed for pain for up to 3 days. for pain. - ZOLMitriptan (ZOMIG) 5 mg tablet TAKE 1 TABLET BY MOUTH AT ONSET OF HEADACHE - ALPRAZolam (XANAX) 0.5 mg tablet Take 0.5 mg by mouth daily at bedtime. - buPROPion XL (WELLBUTRIN XL) 300 mg 24 hr tablet Take 1 tablet by mouth every afternoon. - FLUoxetine HCl 20 mg tablet Take 3 tablets by mouth every afternoon. - rosuvastatin (CRESTOR) 5 mg tablet Take 5 mg by mouth once daily. - nicotine 7 mg/24 hr Apply 1 Patch as directed once daily. - ibuprofen 400 mg tablet Take 1 tablet by mouth every 6 hours. - nicotine -- REMOVE patch 7 Each once daily. - nicotine - verify patch 7 Each every 8 hours. - lansoprazole (PREVACID) 30 mg capsule Take 30 mg by mouth once daily. - nicotine (NICODERM CQ) 14 mg/24 hr Apply 1 Patch as directed every 24 hours. Problem List As Of Date 03/02/2025 Noted Resolved Ureter, calculus [N20.1] 11/07/2011 Pneumothorax, right [J93.9] 06/11/2013 DVT prophylaxis [EBD7817] 06/11/2013 DISPOSITION AND FOLLOW-UP [V999.01] 06/11/2013 Smoking addiction [F17.200] 06/11/2013 Acute pain [R52] 06/16/2013 Pneumonia [J18.9] 06/16/2013 Infection due to yeast [B37.9] 06/16/2013 Encounter Status:Closed by GIANFRANCO PAYNE V on 03/02/25 PROGRESS Observed: 03/02/2025 12:56 PM Status: COMPLETED Source: [facility] HNO ID: [id number] Author: NICOLE PARK MA Service: ? Author Type: Commissary Officer Type: Progress Notes Filed: 03/02/2025 13:16 Note Text: AMB ROOMING INTAKE FLOWSHEET DATA Pain Pain Level: 8 Pain Location: Hand-Right Description: Aching Duration Amount of Time: 1 Duration Units: Days Frequency: Continuous Intervention/Comfort measure: Medication, Splinting CNCO Observed: 03/02/2025 12:00 AM Status: COMPLETED Source: [facility] Letter Text PROGRESS Observed: 03/01/2025 7:10 PM Status: COMPLETED Source: [facility] HNO ID: [id number] Author: WILLOW OCHOA APRN.RAIL TRACTOR OPERATOR Service: ? Author Type: Nurse Practitioner Type: Progress Notes Filed: 03/01/2025 19:23 Note Text: [facility] Hays is a 64 year old female. Patient presents with: right hand pain: X 1 day-playing with grandson RAVEN Right Hand Pain: - Injury occurred around 11:00-11:30 today while playing with her 14-year-old grandson. - Describes the incident as "zigged and he zagged," resulting in the injury. - Denies punching anything during the incident. - Right-handed. - Able to make a fist. - Denies neck or back pain. Anxiety: - Managed with Prozac and Xanax PRN. Hyperlipidemia: - Taking atorvastatin. GERD: - Taking Prevacid. PAST MEDICAL HISTORY Diagnosis Date - High cholesterol PAST SURGICAL HISTORY Procedure Laterality Date - COLONOSCOPY SCREENING 2018 - TUBE THORACOSTOMY INCLUDES WATER SEAL 06/09/2013 post procedure air leak ALLERGIES Bactrim [Sulfamethoxazole-Trimethoprim], Morphine, Benadryl [Diphenhydramine Hcl], and Sulfa (Sulfonamide Antibiotics) MEDICATIONS - ZOLMitriptan (ZOMIG) 5 mg tablet TAKE 1 TABLET BY MOUTH AT ONSET OF HEADACHE - ALPRAZolam (XANAX) 0.5 mg tablet Take 0.5 mg by mouth daily at bedtime. - FLUoxetine HCl 20 mg tablet Take 3 tablets by mouth every afternoon. - rosuvastatin (CRESTOR) 5 mg tablet Take 5 mg by mouth once daily. - lansoprazole (PREVACID) 30 mg capsule Take 30 mg by mouth once daily. - traMADol (ULTRAM) 50 mg tablet Take 1 tablet by mouth every 8 hours as needed for pain for up to 3 days. for pain. - buPROPion XL (WELLBUTRIN XL) 300 mg 24 hr tablet Take 1 tablet by mouth every afternoon. (Patient not taking: Reported on 06/12/2024) - nicotine 7 mg/24 hr Apply 1 Patch as directed once daily. (Patient not taking: Reported on 06/12/2024) - ibuprofen 400 mg tablet Take 1 tablet by mouth every 6 hours. (Patient not taking: Reported on 06/12/2024) - nicotine -- REMOVE patch 7 Each once daily. (Patient not taking: Reported on 06/12/2024) - nicotine - verify patch 7 Each every 8 hours. (Patient not taking: Reported on 01/20/2022) - nicotine (NICODERM CQ) 14 mg/24 hr Apply 1 Patch as directed every 24 hours. (Patient not taking: Reported on 06/12/2024) FAMILY HISTORY Problem Relation Age of Onset - other (rheumatoid Arthritis) Mother - Heart Attack Father Social History Tobacco Use - Smoking status: Former Current packs/day: 0.00 Average packs/day: 1 pack/day for 20.0 years (20.0 ttl pk-yrs) Types: Cigarettes Start date: 06/10/1993 Quit date: 06/10/2013 Years since quittin.7 - Smokeless tobacco: Never Substance Use Topics - Alcohol use: No - Drug use: No Review of Systems Musculoskeletal: (-) neck pain, (-) back pain Objective BP 110/76 Pulse 70 Temp 36.5 ?C (97.7 ?F) (Tympanic) Resp 18 Wt 52.1 kg (114 lb 13.8 oz) SpO2 98% BMI 19.11 kg/m? Physical Exam Vitals and nursing note reviewed. Constitutional: General: She is not in acute distress. Appearance: Normal appearance. She is normal weight. She is not ill-appearing, toxic-appearing or diaphoretic. HENT: Head: Normocephalic and atraumatic. Right Ear: Ear canal and external ear normal. Left Ear: Ear canal and external ear normal. Nose: Nose normal. No congestion or rhinorrhea. Mouth/Throat: Mouth: Mucous membranes are moist. Pharynx: No oropharyngeal exudate or posterior oropharyngeal erythema. Eyes: General: Right eye: No discharge. Left eye: No discharge. Extraocular Movements: Extraocular movements intact. Conjunctiva/sclera: Conjunctivae normal. Pupils: Pupils are equal, round, and reactive to light. Cardiovascular: Rate and Rhythm: Normal rate and regular rhythm. Pulses: Normal pulses. Heart sounds: Normal heart sounds. No murmur heard. No friction rub. Pulmonary: Effort: Pulmonary effort is normal. No respiratory distress. Breath sounds: Normal breath sounds. No stridor. No wheezing, rhonchi or rales. Chest: Chest wall: No tenderness. Abdominal: General: Abdomen is flat. There is no distension. Palpations: Abdomen is soft. There is no mass. Tenderness: There is no abdominal tenderness. There is no right CVA tenderness, left CVA tenderness, guarding or rebound. Hernia: No hernia is present. Musculoskeletal: General: Swelling, tenderness and signs of injury present. No deformity. Cervical back: Normal range of motion and neck supple. No rigidity. Right lower leg: No edema. Left lower leg: No edema. Comments: Right 4th and 5th with TTP +ecchymosis Can make fist +flexion +extension of 4th and 5th Brisk cap refill NO break in skin RP + 2 B/L Lymphadenopathy: Cervical: No cervical adenopathy. Skin: General: Skin is warm and dry. Coloration: Skin is not jaundiced or pale. Findings: No bruising, erythema, lesion or rash. Neurological: General: No focal deficit present. Mental Status: She is alert and oriented to person, place, and time. Cranial Nerves: No cranial nerve deficit. Sensory: No sensory deficit. Motor: No weakness. Coordination: Coordination normal. Gait: Gait normal. Psychiatric: Mood and Affect: Mood normal. Behavior: Behavior normal. Thought Content: Thought content normal. Judgment: Judgment normal. { 1. Right hand pain (M79.641) 2. Closed fracture of right hand, initial encounter (S62.91XA) 3. Unspecified fracture of fifth metacarpal bone, right hand, initial encounter for closed fracture (S62.306A) - Acute right hand pain following accidental trauma with grandson earlier today. - X-ray interpreation by myself demonstrated fifth metacarpal fracture; suspicious area on fourth metacarpal also noted. - Placed in a boxer splint, neurovascular status intact post-immobilization. Improved pain relief - Patient declined sling. RICE therapy - Provided 3-day supply of Ultram for pain management. - Discussed red flag symptoms and indications for urgent follow-up. - Will notify patient when official radiology read is available. - Follow-up with Dr. Medel tomorrow at 3:30 PM. 4. Long-term current use of benzodiazepine (Z79.899) Instructed not to take concurrenly with benzo and Recording using Livevol software for draft documentation of the visit was discussed with the patient/authorized client relations representative; all questions welcomed and answered. Patient/authorized client relations representative agreed to proceed MDM Fracture and Fracture Dislocation Date/Time: 03/01/2025 7:00 PM Performed by: Willow Ochoa APRN.HEBER Authorized by: Willow Ochoa APRN.HEBER Informed Consent Consent Obtained: Verbal [place] Protocol A moment to CARE was completed. SIGN IN Personnel directly involved with the procedure wore the appropriate PPE. Special Equipment: N/A Patient/Surrogate Stated/Verified: Date of and Patient name TIME OUT Relevant labs, photos, and/or imaging studies have been reviewed. Intended patient and procedure match source documents. Consent obtained and matches the intended procedure. Correct side/site marked and visible. No medications required for procedure. No fire risk assessment and interventions applicable. No implant(s) inserted. Injury: Injury location: Hand Hand injury location: R hand Hand fracture type: fifth metacarpal Pre-procedure details: Neurological function: normal Distal perfusion: normal Range of motion: normal Range of motion: normal Procedure details: Manipulation performed: no Reduction successful: no Immobilization: Splint (declines sling) Splint type: Boxer. Supplies used: Elastic bandage, Ortho-Glass and cotton padding Post-procedure details: Neurological function: normal Distal perfusion: normal Range of motion: normal Patient tolerance of procedure: Tolerated well, no immediate complications SIGN OUT No specimen collected. No post-procedure POC communication to the patient or surrogate applicable. XR HAND 3V PA/LAT/OBL RT Observed: 03/01 6:36 PM Status: F Source: [facility] * * *Final Report* * * DATE OF EXAM: Mar 01 2025 6:36PM WOX [id number] - XR HAND 3V PA/LAT/OBL RT / PROCEDURE REASON: Right hand pain * * * * Physician Interpretation * * * * EXAMINATION: XR HAND 3V PA/LAT/OBL RT HISTORY: RIGHT HAND PAIN, INJURY THIS MORNING, 5 TH DIGIT, METACARPAL AREA Right hand pain . TECHNIQUE: XR HAND 3V PA/LAT/OBL RT Laterality: RIGHT Number of different views (projections): 3 M: XB_1 COMPARISON: None RESULT/ IMPRESSION: No acute fracture or dislocation. Mild degenerative changes at the first CMC joint. Joint spaces are otherwise maintained. No other significant abnormality. Casing Machine Operator: DONYA Transcribe Date/Time: Mar 01 2025 7:05P Dictated by : EYAL MA MD This examination was interpreted and the report reviewed and electronically signed by: EYAL MA MD on Mar 01 2025 7:09PM EST [id number] PROGRESS Observed: 03/01/2025 6:30 PM Status: COMPLETED Source: [facility] HNO ID: [id number] Author: LAURA CHURCH RT(R) Service: ? Author Type: Technologist Type: Progress Notes Filed: 03/01/2025 18:34 Note Text: Radiology Service Progress Note PATIENT NAME: Elisabeth Hays DATE OF SERVICE: March 01, 2025 TIME: 6:26 PM PATIENT IDENTITY VERIFICATION COMPLETED USING TWO (2) IDENTIFIERS: Name and Date of confirmed by patient verbally. FALL SCREENING: Has the patient had 2 falls in the last year or 1 fall with injury or currently using an Ambulatory Assistive Device (Walker, Cane, Wheelchair, Crutches, etc.)? No PATIENT GENDER DATA: Assigned female at . status: : No status: NO. PATIENT RELEVANT IMPLANT DATA REVIEWED: Yes PATIENT PRESENTS WITH AN IMPLANTABLE OR ATTACHED IMAGING MANAGER: No RADIOLOGY DEPARTMENT: General X-ray: Exam(s) Completed: Upper Extremity X-Ray(s): Hand, right PERIPHERAL IV DATA: Not applicable SIGNED BY: RT Chika(R) March 01, 2025 6:26 PM CNOV Observed: 03/01/2025 6:15 PM Status: COMPLETED Source: [facility] Office Visit ([facility]) ELISABETH HAYS ([id number]) 1960 F Date Time Provider Department 03/01/25 6:15 PM WILLOW OCHOA During your visit today, we recorded the following information about you: Temperature Pulse Respiration Blood pressure 97.7 degrees 70/minute 18/minute 110/76 Weight 52.1 kg Willow Ochoa APRN.CNP 03/01/2025 7:07 PM Signed FRACTURES GENERAL INFORMATION: A fracture is a break in a bone. The length of time the cast will be on depends on how much time is needed for the bone to heal. Sometimes a temporary splint is placed to allow the swelling to come down. If this is the case, you must follow up to have the actual cast applied. INSTRUCTIONS: 1. To minimize swelling, keep the injured limb above the level of your heart as much as possible. 2. Apply ice to the injury for 15 minutes each hour for the first two days. Put the ice in a plastic bag and place a thin towel between the bag of ice and your cast. 3. Keep your cast or splint dry. It can be protected during bathing with a plastic bag. If a fiberglass cast gets a little wet, it can be dried with a hair or beauty salon manager. 4. Do not put pressure on any part of your cast or splint as it may break. 5. Plaster or fiberglass cast: Do not try to scratch the skin under the cast using a sharp or pointed object. Check the skin around the cast every day. You may put lotion on any red or sore area. Plaster splint: Wear the splint until you are seen in follow-up. If your fingers or toes become numb or tingle, you may loosen the elastic around your splint. If you broke your toe, it has been taped to the toe next to it. After bathing you may place a small piece of cotton between the toes and retape them. 6. You may take ibuprofen, acetaminophen, or other prescribed pain medication as needed. 7. If you have been instructed to use crutches, do not bear weight and use crutches until the orthopedist tells you to stop. 8. If you are a woman who is post-menopausal or a man greater than 50 years old, contact your Primary Care Physician about having a bone density test. CONTACT YOUR DOCTOR OR RETURN TO THE ED IF: 1. Your cast gets damaged or breaks. 2. You have continued severe pain or more swelling than you did before the cast was placed. 3. Your skin or nails turn blue, canas, or feel cold or numb. 4. There is a bad smell or discharge coming from under the cast. Willow Ochoa APRN.RAIL TRACTOR OPERATOR 03/01/2025 7:23 PM Signed [facility] Mariusz Hays is a 64 year old female. Patient presents with: right hand pain: X 1 day-playing with zechariah CARBAJAL Right Hand Pain: - Injury occurred around 11:00-11:30 today while playing with her 14-year-old grandson. - Describes the incident as "zigged and he zagged," resulting in the injury. - Denies punching anything during the incident. - Right-handed. - Able to make a fist. - Denies neck or back pain. Anxiety: - Managed with Prozac and Xanax PRN. Hyperlipidemia: - Taking atorvastatin. GERD: - Taking Prevacid. PAST MEDICAL HISTORY Diagnosis Date - High cholesterol PAST SURGICAL HISTORY Procedure Laterality Date - COLONOSCOPY SCREENING 2018 - TUBE THORACOSTOMY INCLUDES WATER SEAL 06/09/2013 post procedure air leak ALLERGIES Bactrim [Sulfamethoxazole-Trimethoprim], Morphine, Benadryl [Diphenhydramine Hcl], and Sulfa (Sulfonamide Antibiotics) MEDICATIONS - ZOLMitriptan (ZOMIG) 5 mg tablet TAKE 1 TABLET BY MOUTH AT ONSET OF HEADACHE - ALPRAZolam (XANAX) 0.5 mg tablet Take 0.5 mg by mouth daily at bedtime. - FLUoxetine HCl 20 mg tablet Take 3 tablets by mouth every afternoon. - rosuvastatin (CRESTOR) 5 mg tablet Take 5 mg by mouth once daily. - lansoprazole (PREVACID) 30 mg capsule Take 30 mg by mouth once daily. - traMADol (ULTRAM) 50 mg tablet Take 1 tablet by mouth every 8 hours as needed for pain for up to 3 days. for pain. - buPROPion XL (WELLBUTRIN XL) 300 mg 24 hr tablet Take 1 tablet by mouth every afternoon. (Patient not taking: Reported on 06/12/2024) - nicotine 7 mg/24 hr Apply 1 Patch as directed once daily. (Patient not taking: Reported on 06/12/2024) - ibuprofen 400 mg tablet Take 1 tablet by mouth every 6 hours. (Patient not taking: Reported on 06/12/2024) - nicotine -- REMOVE patch 7 Each once daily. (Patient not taking: Reported on 06/12/2024) - nicotine - verify patch 7 Each every 8 hours. (Patient not taking: Reported on 01/20/2022) - nicotine (NICODERM CQ) 14 mg/24 hr Apply 1 Patch as directed every 24 hours. (Patient not taking: Reported on 06/12/2024) FAMILY HISTORY Problem Relation Age of Onset - other (rheumatoid Arthritis) Mother - Heart Attack Father Social History Tobacco Use - Smoking status: Former Current packs/day: 0.00 Average packs/day: 1 pack/day for 20.0 years (20.0 ttl pk-yrs) Types: Cigarettes Start date: 06/10/1993 Quit date: 06/10/2013 Years since quittin.7 - Smokeless tobacco: Never Substance Use Topics - Alcohol use: No - Drug use: No Review of Systems Musculoskeletal: (-) neck pain, (-) back pain Objective BP 110/76 Pulse 70 Temp 36.5 ?C (97.7 ?F) (Tympanic) Resp 18 Wt 52.1 kg (114 lb 13.8 oz) SpO2 98% BMI 19.11 kg/m? Physical Exam Vitals and nursing note reviewed. Constitutional: General: She is not in acute distress. Appearance: Normal appearance. She is normal weight. She is not ill-appearing, toxic-appearing or diaphoretic. HENT: Head: Normocephalic and atraumatic. Right Ear: Ear canal and external ear normal. Left Ear: Ear canal and external ear normal. Nose: Nose normal. No congestion or rhinorrhea. Mouth/Throat: Mouth: Mucous membranes are moist. Pharynx: No oropharyngeal exudate or posterior oropharyngeal erythema. Eyes: General: Right eye: No discharge. Left eye: No discharge. Extraocular Movements: Extraocular movements intact. Conjunctiva/sclera: Conjunctivae normal. Pupils: Pupils are equal, round, and reactive to light. Cardiovascular: Rate and Rhythm: Normal rate and regular rhythm. Pulses: Normal pulses. Heart sounds: Normal heart sounds. No murmur heard. No friction rub. Pulmonary: Effort: Pulmonary effort is normal. No respiratory distress. Breath sounds: Normal breath sounds. No stridor. No wheezing, rhonchi or rales. Chest: Chest wall: No tenderness. Abdominal: General: Abdomen is flat. There is no distension. Palpations: Abdomen is soft. There is no mass. Tenderness: There is no abdominal tenderness. There is no right CVA tenderness, left CVA tenderness, guarding or rebound. Hernia: No hernia is present. Musculoskeletal: General: Swelling, tenderness and signs of injury present. No deformity. Cervical back: Normal range of motion and neck supple. No rigidity. Right lower leg: No edema. Left lower leg: No edema. Comments: Right 4th and 5th with TTP +ecchymosis Can make fist +flexion +extension of 4th and 5th Brisk cap refill NO break in skin RP + 2 B/L Lymphadenopathy: Cervical: No cervical adenopathy. Skin: General: Skin is warm and dry. Coloration: Skin is not jaundiced or pale. Findings: No bruising, erythema, lesion or rash. Neurological: General: No focal deficit present. Mental Status: She is alert and oriented to person, place, and time. Cranial Nerves: No cranial nerve deficit. Sensory: No sensory deficit. Motor: No weakness. Coordination: Coordination normal. Gait: Gait normal. Psychiatric: Mood and Affect: Mood normal. Behavior: Behavior normal. Thought Content: Thought content normal. Judgment: Judgment normal. { 1. Right hand pain (M79.641) 2. Closed fracture of right hand, initial encounter (S62.91XA) 3. Unspecified fracture of fifth metacarpal bone, right hand, initial encounter for closed fracture (S62.306A) - Acute right hand pain following accidental trauma with grandson earlier today. - X-ray interpreation by myself demonstrated fifth metacarpal fracture; suspicious area on fourth metacarpal also noted. - Placed in a boxer splint, neurovascular status intact post-immobilization. Improved pain relief - Patient declined sling. RICE therapy - Provided 3-day supply of Ultram for pain management. - Discussed red flag symptoms and indications for urgent follow-up. - Will notify patient when official radiology read is available. - Follow-up with Dr. Medel tomorrow at 3:30 PM. 4. Long-term current use of benzodiazepine (Z79.899) Instructed not to take concurrenly with benzo and Recording using Livevol software for draft documentation of the visit was discussed with the patient/authorized client relations representative; all questions welcomed and answered. Patient/authorized client relations representative agreed to proceed MDM Fracture and Fracture Dislocation Date/Time: 03/01/2025 7:00 PM Performed by: Willow Ochoa APRN.HEBER Authorized by: Willow Ochoa APRN.HEBER Informed Consent Consent Obtained: Verbal [place] Protocol A moment to CARE was completed. SIGN IN Personnel directly involved with the procedure wore the appropriate PPE. Special Equipment: N/A Patient/Surrogate Stated/Verified: Date of and Patient name TIME OUT Relevant labs, photos, and/or imaging studies have been reviewed. Intended patient and procedure match source documents. Consent obtained and matches the intended procedure. Correct side/site marked and visible. No medications required for procedure. No fire risk assessment and interventions applicable. No implant(s) inserted. Injury: Injury location: Hand Hand injury location: R hand Hand fracture type: fifth metacarpal Pre-procedure details: Neurological function: normal Distal perfusion: normal Range of motion: normal Range of motion: normal Procedure details: Manipulation performed: no Reduction successful: no Immobilization: Splint (declines sling) Splint type: Boxer. Supplies used: Elastic bandage, Ortho-Glass and cotton padding Post-procedure details: Neurological function: normal Distal perfusion: normal Range of motion: normal Patient tolerance of procedure: Tolerated well, no immediate complications SIGN OUT No specimen collected. No post-procedure POC communication to the patient or surrogate applicable. Allergies As of Date: 03/01/2025 Noted Allergy Reaction BACTRIM (SULFAMETHOXAZOLE-TRIMETH*06/11/2013 2 - Rash MORPHINE 06/14/2013 9 - Itching BENADRYL (DIPHENHYDRAMINE HCL) 06/11/2013 14 - Other: See Comments Comments: tachycardia SULFA (SULFONAMIDE ANTIBIOTICS) 06/11/2013 2 - Rash Date Reviewed: 03/01/2025 Reviewed by: Lore Hobson LPN - Fully Assessed Reason for Visit: right hand pain [Other] Cmt: X 1 day-playing with grandson Primary Visit Diagnosis:Closed fracture of right hand, initial encounter [S62.91XA] Other Visit Diagnoses:Right hand pain [M79.641] Unspecified fracture of fifth metacarpal bone, right hand, initial encounter for closed fracture [S62.306A] Long-term current use of benzodiazepine [Z79.899] Order(s):XR HAND GENERAL 3V PA/LAT/OBL RIGHT [6082413] Order #: [id number] FUTURE CONSULT PANEL TO ORTHOPAEDICS [158188] Order #: [id number]: 1 FUTURE traMADol (ULTRAM) 50 mg tabletTake 1 tablet by mouth every 8 hours as needed for pain for up to 3 days. for pain.Disp: 9 tabletRfl: 0 Fracture and Fracture Dislocation [PRO44] Order #: [id number] Prescriptions as of 03/01/2025 - traMADol (ULTRAM) 50 mg tablet Take 1 tablet by mouth every 8 hours as needed for pain for up to 3 days. for pain. - ZOLMitriptan (ZOMIG) 5 mg tablet TAKE 1 TABLET BY MOUTH AT ONSET OF HEADACHE - ALPRAZolam (XANAX) 0.5 mg tablet Take 0.5 mg by mouth daily at bedtime. - buPROPion XL (WELLBUTRIN XL) 300 mg 24 hr tablet Take 1 tablet by mouth every afternoon. - FLUoxetine HCl 20 mg tablet Take 3 tablets by mouth every afternoon. - rosuvastatin (CRESTOR) 5 mg tablet Take 5 mg by mouth once daily. - nicotine 7 mg/24 hr Apply 1 Patch as directed once daily. - ibuprofen 400 mg tablet Take 1 tablet by mouth every 6 hours. - nicotine -- REMOVE patch 7 Each once daily. - nicotine - verify patch 7 Each every 8 hours. - lansoprazole (PREVACID) 30 mg capsule Take 30 mg by mouth once daily. - nicotine (NICODERM CQ) 14 mg/24 hr Apply 1 Patch as directed every 24 hours. Problem List As Of Date 03/01/2025 Noted Resolved Ureter, calculus [N20.1] 11/07/2011 Pneumothorax, right [J93.9] 06/11/2013 DVT prophylaxis [PLI0676] 06/11/2013 DISPOSITION AND FOLLOW-UP [V999.01] 06/11/2013 Smoking addiction [F17.200] 06/11/2013 Acute pain [R52] 06/16/2013 Pneumonia [J18.9] 06/16/2013 Infection due to yeast [B37.9] 06/16/2013 Other instructions from your clinician: FRACTURES GENERAL INFORMATION: A fracture is a break in a bone. The length of time the cast will be on depends on how much time is needed for the bone to heal. Sometimes a temporary splint is placed to allow the swelling to come down. If this is the case, you must follow up to have the actual cast applied. INSTRUCTIONS: 1. To minimize swelling, keep the injured limb above the level of your heart as much as possible. 2. Apply ice to the injury for 15 minutes each hour for the first two days. Put the ice in a plastic bag and place a thin towel between the bag of ice and your cast. 3. Keep your cast or splint dry. It can be protected during bathing with a plastic bag. If a fiberglass cast gets a little wet, it can be dried with a hair or beauty salon manager. 4. Do not put pressure on any part of your cast or splint as it may break. 5. Plaster or fiberglass cast: Do not try to scratch the skin under the cast using a sharp or pointed object. Check the skin around the cast every day. You may put lotion on any red or sore area. Plaster splint: Wear the splint until you are seen in follow-up. If your fingers or toes become numb or tingle, you may loosen the elastic around your splint. If you broke your toe, it has been taped to the toe next to it. After bathing you may place a small piece of cotton between the toes and retape them. 6. You may take ibuprofen, acetaminophen, or other prescribed pain medication as needed. 7. If you have been instructed to use crutches, do not bear weight and use crutches until the orthopedist tells you to stop. 8. If you are a woman who is post-menopausal or a man greater than 50 years old, contact your Primary Care Physician about having a bone density test. CONTACT YOUR DOCTOR OR RETURN TO THE ED IF: 1. Your cast gets damaged or breaks. 2. You have continued severe pain or more swelling than you did before the cast was placed. 3. Your skin or nails turn blue, canas, or feel cold or numb. 4. There is a bad smell or discharge coming from under the cast. Prescriptions ordered this encounter Disp Refills Start End TRAMADOL 50 MG TABLET 9 ta* 0 03/01/2025 03/04/2025 Route: PO Sig: Take 1 tablet by mouth every 8 hours as needed for pain for up to 3 days. for pain. Encounter Status:Closed by WILLOW OCHOA on 03/01/25 PROGRESS Observed: 10/14/2024 8:31 AM Status: COMPLETED Source: [facility] HNO ID: [id number] Author: COURTNEY LUA APRN.RAIL TRACTOR OPERATOR Service: ? Author Type: Nurse Practitioner Type: Progress Notes Filed: 10/14/2024 08:33 Note Text: [facility] Subjective Elisabeth Hays is a 64 year old female. Patient presents with: Head Congestion: Sinus congestion, pain and pressure, ST x6 days Patient came in with complaints of sinus pressure and congestion for about a week. Patient says in the morning she does have a sore throat but that feels much better. Patient denies any shortness of breath or other symptoms. The history is provided by the patient. No russian language professor was used. Review of Systems Constitutional: Negative. HENT: Negative. Objective BP 166/85 Pulse 77 Temp 36.3 ?C (97.4 ?F) Resp 18 Wt 49.3 kg (108 lb 11 oz) SpO2 100% BMI 18.09 kg/m? Physical Exam Constitutional: Appearance: Normal appearance. HENT: Right Ear: Tympanic membrane, ear canal and external ear normal. Left Ear: Tympanic membrane, ear canal and external ear normal. Mouth/Throat: Mouth: Mucous membranes are moist. Pharynx: No posterior oropharyngeal erythema. Eyes: Pupils: Pupils are equal, round, and reactive to light. Cardiovascular: Rate and Rhythm: Normal rate and regular rhythm. Heart sounds: Normal heart sounds. Pulmonary: Effort: Pulmonary effort is normal. Breath sounds: Normal breath sounds. Neurological: Mental Status: She is alert. PAST MEDICAL HISTORY Diagnosis Date High cholesterol PAST SURGICAL HISTORY Procedure Laterality Date COLONOSCOPY SCREENING 2019 TUBE THORACOSTOMY INCLUDES WATER SEAL 06/09/2013 post procedure air leak ALLERGIES Bactrim [Sulfamethoxazole-Trimethoprim], Morphine, Benadryl [Diphenhydramine Hcl], and Sulfa (Sulfonamide Antibiotics) MEDICATIONS ZOLMitriptan (ZOMIG) 5 mg tablet TAKE 1 TABLET BY MOUTH AT ONSET OF HEADACHE ALPRAZolam (XANAX) 0.5 mg tablet Take 0.5 mg by mouth daily at bedtime. FLUoxetine HCl 20 mg tablet Take 3 tablets by mouth every afternoon. rosuvastatin (CRESTOR) 5 mg tablet Take 5 mg by mouth once daily. lansoprazole (PREVACID) 30 mg capsule Take 30 mg by mouth once daily. doxycycline (VIBRA-TABS) 100 mg tablet Take 1 tablet by mouth two times a day for 7 days. buPROPion XL (WELLBUTRIN XL) 300 mg 24 hr tablet Take 1 tablet by mouth every afternoon. (Patient not taking: Reported on 06/12/2024) nicotine 7 mg/24 hr Apply 1 Patch as directed once daily. (Patient not taking: Reported on 06/12/2024) ibuprofen 400 mg tablet Take 1 tablet by mouth every 6 hours. (Patient not taking: Reported on 06/12/2024) nicotine -- REMOVE patch 7 Each once daily. (Patient not taking: Reported on 06/12/2024) nicotine - verify patch 7 Each every 8 hours. (Patient not taking: Reported on 01/20/2022) nicotine (NICODERM CQ) 14 mg/24 hr Apply 1 Patch as directed every 24 hours. (Patient not taking: Reported on 06/12/2024) FAMILY HISTORY Problem Relation Age of Onset other (rheumatoid Arthritis) Mother Heart Attack Father Social History Tobacco Use Smoking status: Former Current packs/day: 0.00 Average packs/day: 1 pack/day for 20.0 years (20.0 ttl pk-yrs) Types: Cigarettes Start date: 06/10/1993 Quit date: 06/10/2013 Years since quittin.3 Smokeless tobacco: Never Substance Use Topics Alcohol use: No Drug use: No ASSESSMENT/PLAN: 1. Rhinosinusitis - ICD9: 473.9, ICD10: J32.9 - Will begin treatment with as per antibiotic as written, see orders - Supportive care with plenty of fluids, rest, and analgesia prn. - DOXYCYCLINE HYCLATE 100 MG TABLET Courtney Lua APRN.RAIL TRACTOR OPERATOR MDM Procedures CNOV Observed: 10/14/2024 8:30 AM Status: COMPLETED Source: [facility] EL[facility]YS ([id number]) 1960 F Date Time Provider Department 10/14/24 8:30 AM COURTNEY LUA [facility] During your visit today, we recorded the following information about you: Temperature Pulse Respiration Blood pressure 97.4 degrees 77/minute 18/minute 166/85 Weight 49.3 kg Courtney Lua, MACHINE OPERATOR FARMWORKER.RAIL TRACTOR OPERATOR 10/14/2024 8:33 AM Signed [facility] Subjective Elisabeth Hays is a 64 year old female. Patient presents with: Head Congestion: Sinus congestion, pain and pressure, ST x6 days Patient came in with complaints of sinus pressure and congestion for about a week. Patient says in the morning she does have a sore throat but that feels much better. Patient denies any shortness of breath or other symptoms. The history is provided by the patient. No russian language professor was used. Review of Systems Constitutional: Negative. HENT: Negative. Objective BP 166/85 Pulse 77 Temp 36.3 ?C (97.4 ?F) Resp 18 Wt 49.3 kg (108 lb 11 oz) SpO2 100% BMI 18.09 kg/m? Physical Exam Constitutional: Appearance: Normal appearance. HENT: Right Ear: Tympanic membrane, ear canal and external ear normal. Left Ear: Tympanic membrane, ear canal and external ear normal. Mouth/Throat: Mouth: Mucous membranes are moist. Pharynx: No posterior oropharyngeal erythema. Eyes: Pupils: Pupils are equal, round, and reactive to light. Cardiovascular: Rate and Rhythm: Normal rate and regular rhythm. Heart sounds: Normal heart sounds. Pulmonary: Effort: Pulmonary effort is normal. Breath sounds: Normal breath sounds. Neurological: Mental Status: She is alert. PAST MEDICAL HISTORY Diagnosis Date High cholesterol PAST SURGICAL HISTORY Procedure Laterality Date COLONOSCOPY SCREENING 2019 TUBE THORACOSTOMY INCLUDES WATER SEAL 06/09/2013 post procedure air leak ALLERGIES Bactrim [Sulfamethoxazole-Trimethoprim], Morphine, Benadryl [Diphenhydramine Hcl], and Sulfa (Sulfonamide Antibiotics) MEDICATIONS ZOLMitriptan (ZOMIG) 5 mg tablet TAKE 1 TABLET BY MOUTH AT ONSET OF HEADACHE ALPRAZolam (XANAX) 0.5 mg tablet Take 0.5 mg by mouth daily at bedtime. FLUoxetine HCl 20 mg tablet Take 3 tablets by mouth every afternoon. rosuvastatin (CRESTOR) 5 mg tablet Take 5 mg by mouth once daily. lansoprazole (PREVACID) 30 mg capsule Take 30 mg by mouth once daily. doxycycline (VIBRA-TABS) 100 mg tablet Take 1 tablet by mouth two times a day for 7 days. buPROPion XL (WELLBUTRIN XL) 300 mg 24 hr tablet Take 1 tablet by mouth every afternoon. (Patient not taking: Reported on 06/12/2024) nicotine 7 mg/24 hr Apply 1 Patch as directed once daily. (Patient not taking: Reported on 06/12/2024) ibuprofen 400 mg tablet Take 1 tablet by mouth every 6 hours. (Patient not taking: Reported on 06/12/2024) nicotine -- REMOVE patch 7 Each once daily. (Patient not taking: Reported on 06/12/2024) nicotine - verify patch 7 Each every 8 hours. (Patient not taking: Reported on 01/20/2022) nicotine (NICODERM CQ) 14 mg/24 hr Apply 1 Patch as directed every 24 hours. (Patient not taking: Reported on 06/12/2024) FAMILY HISTORY Problem Relation Age of Onset other (rheumatoid Arthritis) Mother Heart Attack Father Social History Tobacco Use Smoking status: Former Current packs/day: 0.00 Average packs/day: 1 pack/day for 20.0 years (20.0 ttl pk-yrs) Types: Cigarettes Start date: 06/10/1993 Quit date: 06/10/2013 Years since quittin.3 Smokeless tobacco: Never Substance Use Topics Alcohol use: No Drug use: No ASSESSMENT/PLAN: 1. Rhinosinusitis - ICD9: 473.9, ICD10: J32.9 - Will begin treatment with as per antibiotic as written, see orders - Supportive care with plenty of fluids, rest, and analgesia prn. - DOXYCYCLINE HYCLATE 100 MG TABLET Courtney Lua APRN.RAIL TRACTOR OPERATOR MDM Procedures Allergies As of Date: 10/14/2024 Noted Allergy Reaction BACTRIM (SULFAMETHOXAZOLE-TRIMETH*06/11/2013 2 - Rash MORPHINE 06/14/2013 9 - Itching BENADRYL (DIPHENHYDRAMINE HCL) 06/11/2013 14 - Other: See Comments Comments: tachycardia SULFA (SULFONAMIDE ANTIBIOTICS) 06/11/2013 2 - Rash Date Reviewed: 10/14/2024 Reviewed by: Aashish Blackwell MA - Fully Assessed Reason for Visit: Head Congestion [234] Cmt: Sinus congestion, pain and pressure, ST x6 days Primary Visit Diagnosis:Rhinosinusitis [J32.9] Order(s):doxycycline (VIBRA-TABS) 100 mg tabletTake 1 tablet by mouth two times a day for 7 days.Disp: 14 tabletRfl: 0 Prescriptions as of 10/14/2024 - ZOLMitriptan (ZOMIG) 5 mg tablet TAKE 1 TABLET BY MOUTH AT ONSET OF HEADACHE - doxycycline (VIBRA-TABS) 100 mg tablet Take 1 tablet by mouth two times a day for 7 days. - ALPRAZolam (XANAX) 0.5 mg tablet Take 0.5 mg by mouth daily at bedtime. - buPROPion XL (WELLBUTRIN XL) 300 mg 24 hr tablet Take 1 tablet by mouth every afternoon. - FLUoxetine HCl 20 mg tablet Take 3 tablets by mouth every afternoon. - rosuvastatin (CRESTOR) 5 mg tablet Take 5 mg by mouth once daily. - nicotine 7 mg/24 hr Apply 1 Patch as directed once daily. - ibuprofen 400 mg tablet Take 1 tablet by mouth every 6 hours. - nicotine -- REMOVE patch 7 Each once daily. - nicotine - verify patch 7 Each every 8 hours. - lansoprazole (PREVACID) 30 mg capsule Take 30 mg by mouth once daily. - nicotine (NICODERM CQ) 14 mg/24 hr Apply 1 Patch as directed every 24 hours. Problem List As Of Date 10/14/2024 Noted Resolved Ureter, calculus [N20.1] 11/07/2011 Pneumothorax, right [J93.9] 06/11/2013 DVT prophylaxis [[id number]] 06/11/2013 DISPOSITION AND FOLLOW-UP [V999.01] 06/11/2013 Smoking addiction [F17.200] 06/11/2013 Acute pain [R52] 06/16/2013 Pneumonia [J18.9] 06/16/2013 Infection due to yeast [B37.9] 06/16/2013 Prescriptions ordered this encounter Disp Refills Start End DOXYCYCLINE HYCLATE 100 MG TABLET 14 t* 0 10/14/2024 10/21/2024 Route: ORAL Sig: Take 1 tablet by mouth two times a day for 7 days. Encounter Status:Closed by COURTNEY LUA on 10/14/24 CNPN Observed: 06/13/2024 12:00 AM Status: COMPLETED Source: [facility] ELISAB[facility] HAYS ([id number]) 1960 F Date Time Provider Department 06/13/24 COURTNEY LUA [facility] During your visit today, we recorded the following information about you: Courtney Lua APRN.CNP 06/13/2024 8:06 AM Signed Negative for flu, covid and rsv Zeina Bajwa MA 06/13/2024 1:04 PM Signed Left message for pt to call back. TOVA Loja Alexandra, MA 06/13/2024 1:29 PM Signed Patient notified by NOC. Aashish Blackwell MA Allergies As of Date: 06/13/2024 Noted Allergy Reaction BACTRIM (SULFAMETHOXAZOLE-TRIMETH*06/11/2013 2 - Rash MORPHINE 06/14/2013 9 - Itching BENADRYL (DIPHENHYDRAMINE HCL) 06/11/2013 14 - Other: See Comments Comments: tachycardia SULFA (SULFONAMIDE ANTIBIOTICS) 06/11/2013 2 - Rash Date Reviewed: 06/12/2024 Reviewed by: Aashish Blackwell MA - Fully Assessed Reason for Visit: Results [95] Cmt: w Prescriptions as of 06/13/2024 - ALPRAZolam (XANAX) 0.5 mg tablet Take 0.5 mg by mouth daily at bedtime. - buPROPion XL (WELLBUTRIN XL) 300 mg 24 hr tablet Take 1 tablet by mouth every afternoon. - FLUoxetine HCl 20 mg tablet Take 3 tablets by mouth every afternoon. - rosuvastatin (CRESTOR) 5 mg tablet Take 5 mg by mouth once daily. - azithromycin (ZITHROMAX) 250 mg tablet Take 2 tablets by mouth once daily for 1 day, THEN 1 tablet once daily for 4 days. Patient should start on June 13, 2024. - nicotine 7 mg/24 hr Apply 1 Patch as directed once daily. - ibuprofen 400 mg tablet Take 1 tablet by mouth every 6 hours. - nicotine -- REMOVE patch 7 Each once daily. - nicotine - verify patch 7 Each every 8 hours. - lansoprazole (PREVACID) 30 mg capsule Take 30 mg by mouth once daily. - nicotine (NICODERM CQ) 14 mg/24 hr Apply 1 Patch as directed every 24 hours. Problem List As Of Date 06/13/2024 Noted Resolved Ureter, calculus [N20.1] 11/07/2011 Pneumothorax, right [J93.9] 06/11/2013 DVT prophylaxis [[id number]] 06/11/2013 DISPOSITION AND FOLLOW-UP [V999.01] 06/11/2013 Smoking addiction [F17.200] 06/11/2013 Acute pain [R52] 06/16/2013 Pneumonia [J18.9] 06/16/2013 Infection due to yeast [B37.9] 06/16/2013 Encounter Status:Closed by AASHISH BLACKWELL on 06/13/24 COVID AND INFLUENZA A/B AND RSV PCR, ROUTINE Observed: 06/12/2024 12:53 PM Status: F Source: [facility] SARS-COV-2 (AGENT OF COVID-1 9) RNA: Not detectedINFLUENZA A RNA: Not detectedINFLUENZA B RNA: Not detectedRESPIRATORY SYNCYTIAL VIRUS (RSV) RNA: Not detected Performed By: #### CVFLRS ## ## [facility] CLIA [id number] [address] [place] [address] [place] PROGRESS Observed: 06/12/2024 12:47 PM Status: COMPLETED Source: [facility] HNO ID: [id number] Author: COURTNEY LUA APRN.RAIL TRACTOR OPERATOR Service: ? Author Type: Nurse Practitioner Type: Progress Notes Filed: 06/12/2024 12:51 Note Text: CC: Patient presents with: Cough: Congestion, bodyaches, chills x2 days HPI: Elisabeth Hays is a 64 year old female who presents to the office with complaint of chest congestion, head congestion, cough, nonproductive, and sore throat for a few days. Symptoms are worsening Associated symptoms includes body aches. Denies nausea, vomiting , and diarrhea. Treatments tried include nothing so far. with no relief of symptoms. Sick contacts: unknown. History of asthma, frequent episodes of bronchitis, chronic bronchitis, bronchiectasis or COPD: No Smoker: stopped 2013 Seasonal/environmental allergies: No The ROS is otherwise negative. The patient's pmh, medications, allergies, and past visits are reviewed. PHYSICAL EXAM: BP 134/71 Pulse 79 Temp 36.7 ?C (98 ?F) Resp 18 Wt 50 kg (110 lb 3.7 oz) SpO2 98% BMI 18.34 kg/m? General appearance: alert, cooperative, pleasant, in no acute distress Head: Normocephalic Eyes: EOM's intact, conjunctiva pink and moist, no icterus, sclera white, non-injected Ears: Right ear: External ear/canal- Normal, TM - clear with good landmarks. Left ear: External ear/canal- Normal, TM - clear with good landmarks Oropharynx:moist without lesions, No erythema, exudates or tonsillar hypertrophy. Mild cervical adenopathy uvula midline Heart: Negative. RRR without obvious murmur, gallop, or rubs. No ectopy. Lungs: clear to auscultation, without rales or wheeze, good air exchange PAST MEDICAL HISTORY Diagnosis Date High cholesterol PAST SURGICAL HISTORY Procedure Laterality Date COLONOSCOPY SCREENING 2018 TUBE THORACOSTOMY INCLUDES WATER SEAL 06/09/2013 post procedure air leak ALLERGIES Bactrim [Sulfamethoxazole-Trimethoprim], Morphine, Benadryl [Diphenhydramine Hcl], and Sulfa (Sulfonamide Antibiotics) MEDICATIONS ALPRAZolam (XANAX) 0.5 mg tablet Take 0.5 mg by mouth daily at bedtime. FLUoxetine HCl 20 mg tablet Take 3 tablets by mouth every afternoon. rosuvastatin (CRESTOR) 5 mg tablet Take 5 mg by mouth once daily. lansoprazole (PREVACID) 30 mg capsule Take 30 mg by mouth once daily. buPROPion XL (WELLBUTRIN XL) 300 mg 24 hr tablet Take 1 tablet by mouth every afternoon. (Patient not taking: Reported on 06/12/2024) nicotine 7 mg/24 hr Apply 1 Patch as directed once daily. (Patient not taking: Reported on 06/12/2024) ibuprofen 400 mg tablet Take 1 tablet by mouth every 6 hours. (Patient not taking: Reported on 06/12/2024) nicotine -- REMOVE patch 7 Each once daily. (Patient not taking: Reported on 06/12/2024) nicotine - verify patch 7 Each every 8 hours. (Patient not taking: Reported on 01/20/2022) nicotine (NICODERM CQ) 14 mg/24 hr Apply 1 Patch as directed every 24 hours. (Patient not taking: Reported on 06/12/2024) FAMILY HISTORY Problem Relation Age of Onset other (rheumatoid Arthritis) Mother Heart Attack Father Social History Tobacco Use Smoking status: Former Current packs/day: 0.00 Average packs/day: 1 pack/day for 20.0 years (20.0 ttl pk-yrs) Types: Cigarettes Start date: 06/10/1993 Quit date: 06/10/2013 Years since quittin.0 Smokeless tobacco: Never Substance Use Topics Alcohol use: No Drug use: No ASSESSMENT/PLAN: 1. URI, acute - ICD9: 465.9, ICD10: J06.9 - COVID AND INFLUENZA A/B AND RSV PCR, ROUTINE - AZITHROMYCIN 250 MG TABLET - safety net prescribed if symptoms persist No xray available today. Prescription instructions reviewed with patient as applicable. Potential red flag symptoms discussed with the patient. Reviewed appropriate action plan to take if red flag symptoms occur. Patient agreeable to treatment plan. Courtney Lua APRN.RAIL TRACTOR OPERATOR CNOV Observed: 06/12/2024 12:30 PM Status: COMPLETED Source: [facility] ELISABETH HAYS ([id number]) 1960 F Date Time Provider Department 06/12/24 12:30 PM WILLOW OCHOA During your visit today, we recorded the following information about you: Temperature Pulse Respiration Blood pressure 98 degrees 79/minute 18/minute 134/71 Weight 50 kg Courtney Lua APRN.CNP 06/12/2024 12:51 PM Signed CC: Patient presents with: Cough: Congestion, bodyaches, chills x2 days HPI: Elisabeth Hays is a 64 year old female who presents to the office with complaint of chest congestion, head congestion, cough, nonproductive, and sore throat for a few days. Symptoms are worsening Associated symptoms includes body aches. Denies nausea, vomiting , and diarrhea. Treatments tried include nothing so far. with no relief of symptoms. Sick contacts: unknown. History of asthma, frequent episodes of bronchitis, chronic bronchitis, bronchiectasis or COPD: No Smoker: stopped 2013 Seasonal/environmental allergies: No The ROS is otherwise negative. The patient's pmh, medications, allergies, and past visits are reviewed. PHYSICAL EXAM: BP 134/71 Pulse 79 Temp 36.7 ?C (98 ?F) Resp 18 Wt 50 kg (110 lb 3.7 oz) SpO2 98% BMI 18.34 kg/m? General appearance: alert, cooperative, pleasant, in no acute distress Head: Normocephalic Eyes: EOM's intact, conjunctiva pink and moist, no icterus, sclera white, non-injected Ears: Right ear: External ear/canal- Normal, TM - clear with good landmarks. Left ear: External ear/canal- Normal, TM - clear with good landmarks Oropharynx:moist without lesions, No erythema, exudates or tonsillar hypertrophy. Mild cervical adenopathy uvula midline Heart: Negative. RRR without obvious murmur, gallop, or rubs. No ectopy. Lungs: clear to auscultation, without rales or wheeze, good air exchange PAST MEDICAL HISTORY Diagnosis Date High cholesterol PAST SURGICAL HISTORY Procedure Laterality Date COLONOSCOPY SCREENING 2019 TUBE THORACOSTOMY INCLUDES WATER SEAL 06/09/2013 post procedure air leak ALLERGIES Bactrim [Sulfamethoxazole-Trimethoprim], Morphine, Benadryl [Diphenhydramine Hcl], and Sulfa (Sulfonamide Antibiotics) MEDICATIONS ALPRAZolam (XANAX) 0.5 mg tablet Take 0.5 mg by mouth daily at bedtime. FLUoxetine HCl 20 mg tablet Take 3 tablets by mouth every afternoon. rosuvastatin (CRESTOR) 5 mg tablet Take 5 mg by mouth once daily. lansoprazole (PREVACID) 30 mg capsule Take 30 mg by mouth once daily. buPROPion XL (WELLBUTRIN XL) 300 mg 24 hr tablet Take 1 tablet by mouth every afternoon. (Patient not taking: Reported on 06/12/2024) nicotine 7 mg/24 hr Apply 1 Patch as directed once daily. (Patient not taking: Reported on 06/12/2024) ibuprofen 400 mg tablet Take 1 tablet by mouth every 6 hours. (Patient not taking: Reported on 06/12/2024) nicotine -- REMOVE patch 7 Each once daily. (Patient not taking: Reported on 06/12/2024) nicotine - verify patch 7 Each every 8 hours. (Patient not taking: Reported on 01/20/2022) nicotine (NICODERM CQ) 14 mg/24 hr Apply 1 Patch as directed every 24 hours. (Patient not taking: Reported on 06/12/2024) FAMILY HISTORY Problem Relation Age of Onset other (rheumatoid Arthritis) Mother Heart Attack Father Social History Tobacco Use Smoking status: Former Current packs/day: 0.00 Average packs/day: 1 pack/day for 20.0 years (20.0 ttl pk-yrs) Types: Cigarettes Start date: 06/10/1993 Quit date: 06/10/2013 Years since quittin.0 Smokeless tobacco: Never Substance Use Topics Alcohol use: No Drug use: No ASSESSMENT/PLAN: 1. URI, acute - ICD9: 465.9, ICD10: J06.9 - COVID AND INFLUENZA A/B AND RSV PCR, ROUTINE - AZITHROMYCIN 250 MG TABLET - safety net prescribed if symptoms persist No xray available today. Prescription instructions reviewed with patient as applicable. Potential red flag symptoms discussed with the patient. Reviewed appropriate action plan to take if red flag symptoms occur. Patient agreeable to treatment plan. Courtney Lua APRN.RAIL TRACTOR OPERATOR Allergies As of Date: 06/12/2024 Noted Allergy Reaction BACTRIM (SULFAMETHOXAZOLE-TRIMETH*06/11/2013 2 - Rash MORPHINE 06/14/2013 9 - Itching BENADRYL (DIPHENHYDRAMINE HCL) 06/11/2013 14 - Other: See Comments Comments: tachycardia SULFA (SULFONAMIDE ANTIBIOTICS) 06/11/2013 2 - Rash Date Reviewed: 06/12/2024 Reviewed by: Aashish Blackwell MA - Fully Assessed Reason for Visit: Cough [28] Cmt: Congestion, bodyaches, chills x2 days Primary Visit Diagnosis:URI, acute [J06.9] Order(s):COVID AND INFLUENZA A/B AND RSV PCR, ROUTINE [SQCVFLRS] Order #: [id number]. #:[id number] [START ON 06/13/2024] azithromycin (ZITHROMAX) 250 mg tabletTake 2 tablets by mouth once daily for 1 day, THEN 1 tablet once daily for 4 days. Patient should start on June 13, 2024.Disp: 6 tabletRfl: 0 Prescriptions as of 06/12/2024 - ALPRAZolam (XANAX) 0.5 mg tablet Take 0.5 mg by mouth daily at bedtime. - buPROPion XL (WELLBUTRIN XL) 300 mg 24 hr tablet Take 1 tablet by mouth every afternoon. - FLUoxetine HCl 20 mg tablet Take 3 tablets by mouth every afternoon. - rosuvastatin (CRESTOR) 5 mg tablet Take 5 mg by mouth once daily. - azithromycin (ZITHROMAX) 250 mg tablet Take 2 tablets by mouth once daily for 1 day, THEN 1 tablet once daily for 4 days. Patient should start on June 13, 2024. - nicotine 7 mg/24 hr Apply 1 Patch as directed once daily. - ibuprofen 400 mg tablet Take 1 tablet by mouth every 6 hours. - nicotine -- REMOVE patch 7 Each once daily. - nicotine - verify patch 7 Each every 8 hours. - lansoprazole (PREVACID) 30 mg capsule Take 30 mg by mouth once daily. - nicotine (NICODERM CQ) 14 mg/24 hr Apply 1 Patch as directed every 24 hours. Problem List As Of Date 06/12/2024 Noted Resolved Ureter, calculus [N20.1] 11/07/2011 Pneumothorax, right [J93.9] 06/11/2013 DVT prophylaxis [MFN6472] 06/11/2013 DISPOSITION AND FOLLOW-UP [V999.01] 06/11/2013 Smoking addiction [F17.200] 06/11/2013 Acute pain [R52] 06/16/2013 Pneumonia [J18.9] 06/16/2013 Infection due to yeast [B37.9] 06/16/2013 Prescriptions ordered this encounter Disp Refills Start End AZITHROMYCIN 250 MG TABLET 6 ta* 0 06/13/2024 06/18/2024 Route: ORAL Sig: Take 2 tablets by mouth once daily for 1 day, THEN 1 tablet once daily for 4 days. Patient should start on June 13, 2024. Letter Text Encounter Status:Closed by COURTNEY LUA on 06/12/24 ALLERGIES DATE TYPE / CODE NAME / CODE REACTION SEVERITY SOURCE 06/14/2013 DRUG INGREDI/4195 74621(SNOMED CT) MORPHINE ITCHING [facility] 06/11/2013 DRUG/7383719 03(SNOMED CT) SULFAMETHOXAZOLE-TRIMET HOPRIM RASH [facility] 06/11/2013 DRUG INGREDI/4195 36326(SNOMED CT) DIPHENHYDRAMINE HCL OTHER: [facility] Drug Class/536543 003(SNOMED CT) SULFA (SULFONAMIDE ANTIBIOTICS) RASH [facility] ENCOUNTERS ADMIT/DISCHARGE ACCOUNT NUMBER ADMITTING ENCOUNTER CLASS LOC ATION SOURCE 04/15/2025 [id number] [facility] HospitalBuild ing:[address] 04/15/2025/ 5 [id number] [facility] Hospital[facility] ing:[facility] 04/01/2025/ 5 [id number] [facility] HospitalBuild ing:[facility] 03/31/2025 [id number] [facility] HospitalBuild ing:[address] 03/18/2025 [id number] [facility] HospitalBuild ing:[address] 03/18/2025/ 5 [id number] [facility] HospitalBuild ing:[facility] 03/02/2025/ 5 [id number] [facility] Hospital[facility] ing:[facility] 03/01/2025 [id number] [facility] HospitalBuild ing:GOG [facility] 03/01/2025/ 5 [id number] [facility] Hospital[facility] ing:JESSICA [facility] 10/14/2024/ 5 [id number] [facility] Hospital[facility] ing:RANJANA [facility] 06/12/2024/ 4 [id number] [facility] Hospital[facility] ing:RANJANA [facility] PAYERS ENCOUNTER GUARANTOR PAYER SUBSCRIBER SOURCE 04/15/2025 Primary Insuranc e:MEDICARE A AND BPolicy Number: [id number] Date:5441-69-39Obwa Name:Mirela CONNERBDOB: [id number] [place] [address] [facility] 04/15/2025 Secondary Insurance:BANKERS LIFE AND CASUALTY SUPPLEMENTPolicy Number: [id number] Date:9476-84-03Cytz Name:Reggie Tony SAABDOB: [id number] [place] [address] [facility] 04/15/2025 Primary Insuranc e:MEDICARE A AND BPolicy Number: [id number] Date:0242-05-20Pfqp Name:Mirela CONNERBDOB: [id number], [place] [address] [facility] 04/15/2025 Secondary Insurance:BANKERS LIFE AND CASUALTY SUPPLEMENTPolicy Number: [id number] Date:7970-62-18Nmce Name:Reggie Tony SAABDOB: [id number] [address] [place] [address] [facility] 04/01/2025 Primary Insuranc e:MEDICARE A AND BPolicy Number: [id number] Date:9737-13-91Avky Name:Mirela Tony SAABDOB: [id number] [address] [place] [address] [facility] 04/01/2025 Secondary Insurance:BANKERS LIFE AND CASUALTY SUPPLEMENTPolicy Number: [id number] Date:4866-72-21Qwim Name:Reggie CONNERBDOB: [id number] [address] [place] [address] [facility] 03/31/2025 Primary Insuranc e:MEDICARE A AND BPolicy Number: [id number] Date:3367-67-16Djai Name:Mirela CONNERBDOB: [id number] [address] [place] [address] [facility] 03/31/2025 Secondary Insurance:BANKERS LIFE AND CASUALTY SUPPLEMENTPolicy Number: [id number] Date:9573-68-49Vwgf Name:Reggie CONNERBDOB: [id number] [address] [place] [address] [facility] 03/18/2025 Primary Insuranc e:MEDICARE A AND BPolicy Number: [id number] Date:7767-80-76Gfor Name:Mirela CONNERBDOB: [id number] [address] [place] [address] [facility] 03/18/2025 Secondary Insurance:BANKERS LIFE AND CASUALTY SUPPLEMENTPolicy Number: [id number] Date:7560-96-51Adxi Name:Reggie CONNERBDOB: [id number] [address] [place] [address] [facility] 03/18/2025 Primary Insuranc e:MEDICARE A AND BPolicy Number: [id number] Date:1023-20-93Mqau Name:Mirela Tony SAABDOB: [id number] [place] [address] [facility] 03/18/2025 Secondary Insurance:BANKERS LIFE AND CASUALTY SUPPLEMENTPolicy Number: [id number] Date:1706-47-24Uxzj Name:Reggie Tony SAABDOB: [id number] [address] [place] [address] [facility] 03/02/2025 Primary Insuranc e:MEDICARE A AND BPolicy Number: [id number] Date:2075-07-78Oryv Name:Mirela Tony SAABDOB: [id number] [address] [place] [address] [facility] 03/02/2025 Secondary Insurance:BANKERS LIFE AND CASUALTY SUPPLEMENTPolicy Number: [id number] Date:9020-56-61Ozkh Name:Reggie CONNERBDOB: [id number] [address] [place] [address] [facility] 03/01/2025 Primary Insuranc e:MEDICARE A AND BPolicy Number: [id number] Date:7431-03-15Dxxm Name:Mirela Tony SAABDOB: [id number] [address] [place] [address] [facility] 03/01/2025 Secondary Insurance:BANKERS LIFE AND CASUALTY SUPPLEMENTPolicy Number: [id number] Date:3499-48-66Qtnf Name:Reggie Tony SAABDOB: [id number] [address] [place] [address] [facility] 03/01/2025 Primary Insuranc e:MEDICARE A AND BPolicy Number: [id number] Date:0418-98-79Fqhq Name:Mirela Tony SAABDOB: [id number] [address] [place] [address] [facility] 03/01/2025 Secondary Insurance:BANKERS LIFE AND CASUALTY SUPPLEMENTPolicy Number: [id number] Date:7783-09-46Tldl Name:Reggie Tony SAABDOB: [id number] [place] [address] [facility] 10/14/2024 Primary Insuranc e:MEDICARE A AND BPolicy Number: [id number] Date:2769-98-07Snsq Name:Mirela CONNERBDOB: [id number] [place] [address] [facility] 10/14/2024 Secondary Insurance:BANKERS LIFE AND CASUALTY SUPPLEMENTPolicy Number: [id number] Date:9454-26-90Zkjp Name:Reggie CONNERBDOB: [id number] [place] [address] [facility] 06/12/2024 Primary Insuranc e:MEDICARE A AND BPolicy Number: [id number] Date:6814-03-43Izlz Name:Mirela CONNERBDOB: [id number] [address] [place] [address] [facility] 06/12/2024 Secondary Insurance:BANKERS LIFE AND CASUALTY SUPPLEMENTPolicy Number: [id number] Date:7183-93-02Gmtg Name:Reggie Tony SAABDOB: [id number] [address] [place] [address] [facility]
--- NOTE | 2025-05-02 12:51 | US_ITS ---
PROCEDURE: BREAST LIMITED UNILATERAL 05/02/2025 REASON FOR EXAM: F, Age 64 y/o , ABN MAMM Architectural distortion of the left breast. Evaluate. COMPARISON: Mammogram studies dated 05/02/2025, 04/28/2025, and 04/14/2023. TECHNIQUE: Procedure Code: [id number] Modality: US Procedure: BREAST LIMITED UNILATERAL FINDINGS: The upper-outer quadrant and lower outer quadrant of the left breast were scanned. At the 12 o'clock, 4 cm from the nipple position there is a hypoechoic mass producing posterior shadowing. The mass measures 5 x 4 x 4 mm. The margins are irregular. This does appear to correlate to the area of distortion seen on the mammogram. This mass and distortion is of uncertain etiology. Biopsy is warranted in order to completely exclude a malignancy. US/Breast Limited Unilateral IMPRESSION: The upper-outer quadrant and lower outer quadrant of the left breast were scann ed. At the 12 o'clock, 4 cm from the nipple position there is a hypoechoic mass producing posterior shadowing. The mass sarika sures 5 x 4 x 4 mm. The margins are irregular. This does appear to correlate to the area of distortion seen on the mammogram. This mass and distortion is of uncertain etiology. Biopsy is warranted in order to completely exclude a malignancy. BI-RADS 4: SUSPICIOUS RECOMMENDATION: Biopsy Recommended Reading Location: [id number]
--- NOTE | 2025-05-02 12:51 | BI_ITS ---
EXAM: DIAG MAMM W/CAD, UNILAT 05/02/2025 CLINICAL HISTORY: F, Age 64 y/o , ABN MAMM architectural distortion. Evaluate. TECHNIQUE: Procedure Code: [id number] Modality: MG Procedure: DIAG MAMM W/CAD, UNILAT. COMPARISON: Prior exam(s) dated 04/28/2025 and 04/14/2023. FINDINGS: TISSUE DENSITY: The breasts are heterogeneously dense, which may obscure small masses. Bilateral Breast Mammographic Findings: There is subtle architectural distortion in the superior, slightly lateral aspect of the left breast which does persist on today's study. Further workup with ultrasound will be performed for further evaluation. BI/DIAG MAMM W/CAD, UNILAT IMPRESSION: There is subtle architectural distortion in the superior, slightly lateral aspe ct of the left breast which does persist on today's study. Further workup with ultrasound will be performed for further dwaine luation. OVERALL FINAL ASSESSMENT BI-RADS 0: INCOMPLETE - NEED ADDITIONAL IMAGING EVALUATION. RECOMMENDATION: Ultrasound Recommended Additional Recommendation none A letter with findings and recommendations will be mailed to the patient. Reading Location: [id number]
== END | disposition home or self-care (01) ==
LOC: OPBI 12:50
PROVIDERS: PCP Family Medicine; Referring Provider Family Medicine; Visit Provider Family Medicine
DX: R92.8 Other abnormal and inconclusive findings on diagnostic imaging of breast (principal)
CPT/HCPCS: 76642; 77061; 77065; G0279

== ENCOUNTER → 2025-05-13 | Outpatient (CLI) | payer MEDICARE, OTHER, SELFPAY | END | disposition home or self-care (01) | PROVIDERS: PCP Family Medicine; Referring Provider Surgery; Visit Provider Surgery | DX: N63.25 Unspecified lump in the left breast, overlapping quadrants (principal); R92.8 Other abnormal and inconclusive findings on diagnostic imaging of breast | CPT/HCPCS: 76642 ==